=== PATIENT | female | born 1940 | race Caucasian/White ===

== ENCOUNTER 2024-05-05 02:26 | Inpatient (IN) | payer MEDICARE, SELFPAY ==
[2024-05-04 17:23] VITALS: BP 207/89
[2024-05-04 17:49] LABS: % Basophils 0.5 % (0-2); % Immature Granulocytes 0.2 % (0-0.5); % Lymphocytes 10.5 % (20.5-51.1); % Monocytes 3.8 % (1.7-9.3); Absolute Basophils 0.1 10^3/uL (0-0.2); Absolute Monocytes 0.4 10^3/uL (0.1-0.6); Absolute Neutrophils 7.9 10^3/uL (1.4-6.5); Hematocrit 41.3 % (37.0-47.0); Hemoglobin 13.2 g/dL (12.0-16.0); Mean Corpuscular Hgb 28.9 pg (27.0-31.0); Mean Corpuscular Volume 90.4 fL (81.0-99.0); Mean Platelet Volume 9.8 fL (7.4-10.4); Nucleated Red Blood Cells % 0 %; Platelet Count 263 10^3/uL (130-400); Red Blood Cell Count 4.57 10^6/uL (4.20-5.40); White Blood Cell Count 9.3 10^3/uL (4.8-10.8)
[2024-05-04 18:00] LABS: ALT (SGPT) 20 U/L (0-35); AST (SGOT) 32 U/L (14-36); Albumin 4.4 g/dl (3.5-5.0); Alkaline Phosphatase 120 U/L (38-126); Blood Urea Nitrogen 24 mg/dl (7-17); Calcium 9.9 mg/dl (8.4-10.2); Carbon Dioxide 28 mmol/L (22-30); Chloride 102 mmol/L (98-107); Glucose 194 mg/dl (70-99); Lipase 75 U/L (23-300); Potassium 5.2 mmol/L (3.5-5.1); Sodium 137 mmol/L (135-145); Total Bilirubin 0.7 mg/dl (0.2-1.3); eGFR 55.55
[2024-05-04 18:44] VITALS: BP 181/69; BMI 32.1
--- NOTE | 2024-05-04 19:33 | ED.GENMED ---
History of Present Illness
General
Chief Complaint: Abdominal Pain
Time Seen by Provider: 05/04/24 18:41
History of Present Illness
History of Present Illness:
83-year-old female with history of hypertension and hyperlipidemia presents the emergency department for evaluation of upper abdominal pain beginning last night. Symptoms worsen this morning with copious vomiting. She states she has had 1 bowel
movement today but denies any diarrhea. No melanotic stools. Prior abdominal surgery includes open cholecystectomy
Past History
Past History
ED Past Medical History: HTN, Renal failure and Other (Psoriatic arthritis, dementia, morbid obesity)
ED Past Surgical History: Orthopedic (Right hip replacement)
Social History
Tobacco: Non-smoker
Living: with family
Review of Systems
Review of Systems
Allergies reviewed?: Yes
All Other Systems: ROS reviewed and negative except as documented in HPI and ROS
Phy Exam
Physical Exam
Physical Exam:
GEN: Well appearing, NAD, WDWN
Eyes: PERRLA, EOMs intact, no scleral icterus
HENT: NCAT, oral mucosa moist,
Lungs: CTAB, no wheezes, rales, rhonchi, normal chest wall excursion
Cardiac: RRR, no M/R/G, no peripheral edema. Radial pulses 2+ bilat
Abdomen: Distended abdomen, tender to the epigastrium and right upper quadrant
Neuro: AO x 3
MSK: No gross deformity or ecchymosis. No edema. No digital clubbing
Skin: No rashes, petechiae. Normal color, no pallor or jaundice.
Psych: Calm, cooperative, proper hygiene
Course
Orders/Labs/Results
Orders:
Orders
05/04/24 17:29
Electrocardiogram (*1) Urgent
Reason for Study: Abdominal Pain
EKG- Treatment ONCE
05/04/24 17:37
Complete Blood Count/With Diff Urgent
Comprehensive Metabolic Panel Urgent
Lipase Urgent
05/04/24 19:23
CT Abd/Pel (IV only)-DH only Urgent
Comment:
Reason For Exam: epigastric pain
0.9% Sodium Chloride 1000 ml [Nss] 1,000 ml IV BOLUS
Ondansetron Injectable [Zofran] 4 mg IV NOW STA
05/04/24 20:32
Morphine Sulfate 4 mg IV NOW STA
05/04/24 23:02
NG Tube [GI tube insertion- Treatment] ONCE
Abnormal Lab Results
05/04/24
17:37
MCHC 32.0 L g/dL
(33.0-37.0)
RDW 15.0 H %
(11.5-14.5)
Absolute Neuts (auto) 7.9 H 10^3/uL
(1.4-6.5)
Absolute Lymphs (auto) 1.0 L 10^3/uL
(1.2-3.4)
Neutrophils % 85.0 H %
(42.2-75.2)
Lymphocytes % 10.5 L %
(20.5-51.1)
Potassium 5.2 H mmol/L
(3.5-5.1)
BUN 24 H mg/dl
(7-17)
Glucose 194 H mg/dl
(70-99)
05/04/24 17:37
05/04/24 17:37
Vital Signs
Initial and Last Documented VS:
Initial Vital Signs
Temp Pulse Resp BP Pulse Ox
98.1 F 77 20 207/89 94
05/04/24 17:23 05/04/24 17:23 05/04/24 17:23 05/04/24 17:23 05/04/24 17:23
Last Documented Vital Signs
Temp Pulse Resp BP Pulse Ox
98.1 F 89 18 156/53 91
05/04/24 17:23 05/04/24 22:42 05/04/24 20:30 05/04/24 22:42 05/04/24 22:42
MDM/Problems Addressed
MDM/Problems Addressed:
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 Widespread metastatic disease identified on CT scan. NG tube will be placed and the patient will be admitted to the
hospitalist service for further management
General surgery was made aware of case via [facility] message at 2311, however there is no indication for surgical emergency that would necessitate urgent consultation.
*Critical Care Note
Total Time (30-74mins, 75-104mins- exclusive of procedures): Not Applicable
ED Attending Note
-
Portions of this chart may have been created with voice recognition software.� Occasional wrong word or��sound alike� substitutions may have occurred due to the inherent limitations of voice recognition software.
Discharge Plan
Departure
Patient Disposition: Admit
Date of Disposition: 05/04/24
Time of Disposition: 23:11
Presentation/result/management discussed w/ accepting MD/DO: Hospitalist
Discharge Problem:
Small bowel obstruction
Prescriptions:
No Action
atorvastatin 20 mg Tablet
20 mg PO DAILY
olmesartan 20 MG tablet
20 mg PO DAILY
acetaminophen 325 mg Tablet
650 mg PO QID Qty: 0 0RF
metformin 500 mg Tablet Extended Release 24 Hr
500 mg PO DAILY
Referrals:
Sofi Rodriguez PA-C [Family Provider] -
Interventions
Interventions:
*Risk Screen - Suicide Last Done: 05/04/24 17:23
*General Assessment Last Done: 05/04/24 17:23
*Neglect/Abuse Screening Last Done: 05/04/24 17:23
UN-Sovudn-Ndcileaaqc Assessment Last Done: 05/04/24 18:46
Discharge Date and Time
Print Language: AUSTRALIAN
[2024-05-04] MEDS: NSS 1000 IV (20:16)
[2024-05-04] MEDS: ZOFRAN 4 MG IV (20:16)
[2024-05-04 20:30] VITALS: BP 182/67
--- NOTE | 2024-05-04 21:04 | EDRN ---
Spoke with Carter BOLES and informed him that this RN was locked out of MAR and not able to give medication. Infromed by Carter BOLES that it was ordered on the wrong pt. Documented not given and why. Unable to save this due to Dr Metcalf having me
locked out of the screen.
[2024-05-04 22:42] VITALS: BP 156/53
--- NOTE | 2024-05-04 23:24 | PHANOTE ---
med rec ilya(05/04/24)-patient states she takes care of her own medications, but was not able to go through them with me. Mentioned tylenol, but not other drugs. Compiled list from [facility] records. [facility] records most recent are from September 2023,
unreliable, and multiple unknown medications at that time as well. Left unconfirmed due to only having one source.
[2024-05-05] VITALS (8 sets, daily range): BP systolic 125–186; BP diastolic 51–82; PULSE 64; O2SAT 100; BMI 32.0
--- NOTE | 2024-05-05 02:04 | HPS.HSE ---
Family Physician
-
Family Physician: Sofi Rodriguez
Chief Complaint
-
Abd Pain, N/V
History of Present Illness
Patient is an 83y F with PMH significant for DM-II, obesity and sedentary status who presents to ED complaining of abdominal pain and N/V. Patient states that her symptoms started about 2 days ago and have been persistent. She reports diffuse
abdominal pain and nausea with occasional non-bloody emesis. She states that she has been moving her bowels normally and notes that she had a normal BM this AM.
Patient denies any fevers / chills.
She states that she has never had a colonoscopy.
Medical History
Past Medical History
Past Medical History: Reports Other
Additional Past Medical History:
Obesity
DM-II
Psoriatic Arthritis
Hypertension
? Dementia
Past Surgical History: Reports Other
Additional Past Surgical History:
Right KARLOS
Social History
Tobacco: Former Smoker (Quit smoking 40+ years ago.)
Alcohol: None
Drug: None
Living: With Family (Son)
Family History
Family History: Not pertinent
Allergies / Home Medications
Allergies reflects when Allergies were last updated in [facility].
Home Medications with original date entered in [facility]
Allergy/Medication List:
Patient cannot recall any current medications.
If medication reconciliation has not been performed, why?: Medication List N/A
Review of Systems
-
History Source: Patient
A 12 point ROS was completed and negative except as noted: Yes
Constitutional: Denies Fever or Chills
EENT: Denies Sore Throat
Respiratory: Denies Cough or Trouble Breathing
Cardiac: Denies Chest Pain or Palpitations
Abdomen/GI: Reports Abdominal Pain, Nausea and Vomiting; Denies Diarrhea, Constipated, Bloody Stools or Black Stools
: Denies Dysuria or Frequency
Musculoskeletal: Denies Joint Pain or Edema
Neurological: Denies Dizzy or Headache
Psych: Denies Depression or Anxiety
Physical Exam
Vital Signs
Vital Signs
Temp Pulse Resp BP Pulse Ox
98.1 F 89 18 156/53 91
05/04/24 17:23 05/04/24 22:42 05/04/24 20:30 05/04/24 22:42 05/04/24 22:42
Physical Exam
General: Other (83y F in no acute distress.)
HEENT: Moist mucous membranes, PERRLA and Other (Thick neck. NG in place draining dark, bilious liquid.)
Respiratory: Other (Decreased at bases - otherwise clear.)
Cardiac: S1/S2 and Regular Rhythm; No Murmur
GI: Other (Obese, diffusely / mildly tender without rebound / guarding. Pos BS.)
Musculoskeletal: No Clubbing, No Cyanosis and No Edema
Neuro: Awake, Alert and Other (Mildly confused.)
Laboratory Results
-
05/04/24 17:37
05/04/24 17:37
Laboratory Results
Total Bilirubin 0.7 mg/dl (0.2-1.3) 05/04/24 17:37
AST 32 U/L (14-36) 05/04/24 17:37
ALT 20 U/L (0-35) 05/04/24 17:37
Alkaline Phosphatase 120 U/L (38-126) 05/04/24 17:37
Lipase 75 U/L (23-300) 05/04/24 17:37
Impression/Plan
-
A/P: Patient is an 83y F with PMH significant for HTN and DM-II who presents to ED complaining of abdominal pain and N/V.
SBO
- Admit for further evaluation and treatment.
- NG placed for decompression.
- Supportive care, NPO, IVFs, antiemetics.
- Surgery evaluation.
- Follow for clinical improvement.
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
- CT suggest soft tissue lesion at site of transition concerning for malignancy.
- In addition, R base lung mass, hepatic lesions, peritoneal seeding and fluid concerning for metastatic spread.
- Will ask IR to review imaging in the AM for any potential targets for biopsy / definitive diagnosis.
- Oncology eval after tissue diagnosis.
Benign Hypertension
- Hold PO meds acutely.
- IV hydralazine as needed for higher BPs.
DM-II
- Stable. Hold PO meds.
- Follow glucose and cover with SSI as needed.
- Update A1C.
DVT Prophylaxis: SCDs
Code Status: Full
--- NOTE | 2024-05-05 04:52 | PTCARENOTE ---
Received pt from ER,quiet affect,pt tolerated transfer well pts physical assessment preformed,pt NGT intact to right nare,brown drainage small amt.VS stable pt afebrile.O2 98% on 2 lnc.Pt assisted with turning,voided large amt on bedpan.Sleeping
after assessment.
[2024-05-05] MEDS: NSS 1000 IV ×2 (05:14→15:30)
[2024-05-05 05:38] LABS: Glucose - Point of Care 153 mg/dl (70-99)
[2024-05-05] MEDS: NOVOLOG FLEXPEN-LOW RESISTANCE 1 UNITS SC (06:01)
[2024-05-05 07:18] LABS: Hematocrit 38.4 % (37.0-47.0); Hemoglobin 12.4 g/dL (12.0-16.0); Mean Corp Hgb Conc. 32.3 g/dL (33.0-37.0); Mean Corpuscular Hgb 28.9 pg (27.0-31.0); Mean Corpuscular Volume 89.5 fL (81.0-99.0); Mean Platelet Volume 10.1 fL (7.4-10.4); Platelet Count 244 10^3/uL (130-400); Red Blood Cell Count 4.29 10^6/uL (4.20-5.40); Red Cell Dist. Width 15.1 % (11.5-14.5); White Blood Cell Count 10.3 10^3/uL (4.8-10.8)
[2024-05-05 08:00] LABS: Blood Urea Nitrogen 24 mg/dl (7-17); Carbon Dioxide 25 mmol/L (22-30); Chloride 103 mmol/L (98-107); Estimated Creatinine Clearance 39 ml/min; Glucose 146 mg/dl (70-99); Potassium 4.4 mmol/L (3.5-5.1); Sodium 137 mmol/L (135-145); eGFR 55.55
[2024-05-05 08:45] LABS: INR 1.11; PT 14.2 Sec (11.4-14.6)
[2024-05-05] MEDS: NSS (PRESERVATIVE FREE) 10 ML IV (08:59)
[2024-05-05] MEDS: PROTONIX IV 40 MG IV (09:00)
[2024-05-05 10:40] LABS: CEA 24.4 ng/ml
[2024-05-05 11:12] LABS: Glycohemoglobin (HgbA1c) 6.7 % (4.0-5.6)
--- NOTE | 2024-05-05 11:41 | W.PN.HOSP.TC ---
Today's Communication/Plan
-
NG tube.
IV fluids.
iRad for liver biopsy.
Assessment / Plan
Assessment / Plan
Impression:
Patient is an 83y F with PMH significant for HTN and DM-II who presents to ED complaining of abdominal pain and N/V.
SBO with concern for malignant obstruction
Other conditions:
Benign hypertension
Diabetes type 2 NIDDM.
Suspect cognitive dysfunction.
Plan:
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
CT scan suggest soft tissue lesion at site of transition, lymphadenopathy, hepatic and pulmonary metastasis
Interventional radiology consultation for liver biopsy
Tumor markers pending.
Oncology consultation.
NG tube placed in the emergency room.
N.p.o.
IV fluids monitor electrolytes
General surgery consultation
Oncology consultation
Benign Hypertension
- Hold PO meds acutely.
- IV hydralazine as needed for higher BPs.
DM-II
- Stable. Hold PO meds.
- Follow glucose and cover with SSI as needed.
- Update A1C.
DVT Prophylaxis: SCDs
Code Status: Full
Anticipated Discharge: > 48 hours
Subjective/Interval History
-
Date of Service: May 05, 2024
Objective Data
-
Labs:
Laboratory Results
05/05/24 05/05/24
05:03 08:14
WBC 10.3
Hgb 12.4
Hct 38.4
Plt Count 244
PT 14.2
INR 1.11
Sodium 137
Potassium 4.4
Chloride 103
Carbon Dioxide 25
BUN 24 H
Creatinine 1.0
Glucose 146 H
Calcium 9.0
Vital Signs:
Vital Signs
Temp Pulse Resp BP Pulse Ox
98.9 F 74 20 131/57 97
05/05/24 07:33 05/05/24 07:33 05/05/24 07:33 05/05/24 07:33 05/05/24 08:00
I&O
05/04/24 05/05/24 05/06/24
06:59 06:59 06:59
Intake Total 300 / 300
Output Total 300 / 300
Balance 0 / 0
Physical Exam
-
General: Well Developed and No Apparent Distress
HEENT: Normocephalic, Atraumatic and Moist Mucous Membranes
Respiratory: Clear to Auscultation
Cardiac: Regular Rhythm and S1/S2; Negative Murmur, Rub or Gallop
GI: Soft, Nontender, Normal Bowel Sounds, Distended and Other (Hypoactive bowel sounds. NG tube in place with biliary fluid.); Negative Organomegaly
Rectal: Deferred by Provider
Musculoskeletal: No Clubbing, No Cyanosis and No Edema
Skin: Negative Rash
Neuro: Awake, Alert, Oriented and Nonfocal/Grossly Intact
[2024-05-05] MEDS: CHLORASEPTIC/SORE THROAT SPRAY 2 SPRAY PO ×2 (11:47→17:34)
--- NOTE | 2024-05-05 11:54 | CON.ONC ---
Impression
Impression
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
Diabetes
Obesity
Hard of hearing, possible dementia
Plan
Plan
Agree with plans for biopsy of the liver. Check CEA. Management of bowel obstruction as per surgical service. We will continue to follow.
Patient History
History of Present Illness
Consult from Dr. Kumar regarding probable colon cancer
This 83-year-old woman was admitted with vomiting. Evaluation here shows a bowel obstruction that seems to be located at the junction of the ileum and cecum. There are also apparent liver and lung metastases. She is being managed presently with
an NG tube. Liver biopsy is planned. She is unable to give me much of a meaningful history in part due to hearing difficulties. She was having some abdominal pain, but says she is not having any at present. She is unaware of any weight loss.
Past-Medical/Surgical History
Longstanding diabetes
Psoriatic arthritis
Patient Medication
�Medication �Instructions �Recorded �Confirmed �Last Taken �Type
atorvastatin 20 mg tablet 20 mg PO DAILY High cholesterol 10/24/22 05/05/24 Unknown History
olmesartan 20 mg tablet 20 mg PO DAILY Blood pressure 10/24/22 05/05/24 Unknown History
acetaminophen 325 mg tablet 650 mg (2 x 325 mg) PO QID #0 tabs 10/25/22 05/05/24 Unknown Rx
metformin 500 mg tablet,extended 500 mg PO DAILY 05/04/24 05/05/24 Unknown History
release 24 hr
Active Medications
Generic Name Dose Route Start Last Admin
Trade Name Freq PRN Reason Stop Dose Admin
Dextrose 12.5 grams 05/05/24 03:48
Dextrose 50% (0.5 Grams/Ml) 50 Ml Syringe IV 06/02/24 03:47
[id number] PRN
hypoglycemia
Protocol
Glucagon 1 mg 05/05/24 03:48
Glucagon 1 Mg Vial IM 06/02/24 03:47
PRN PRN
hypoglycemia
Protocol
Hydralazine HCl 5 mg 05/05/24 03:48
Hydralazine 20 Mg/Ml Vial IV 06/02/24 03:47
Q6HPRN PRN
SBP > 180
Hydromorphone HCl 0.5 mg 05/05/24 03:48
Hydromorphone 0.5 Mg/0.5 Ml Syringe IV 05/19/24 03:47
Q4HPRN PRN
Severe Pain
Sodium Chloride 1,000 mls @ 100 mls/hr 05/05/24 03:48 05/05/24 05:14
Nss IV 1,000 mls
.Q10H BLANCA Administration
Insulin Aspart 0 units 05/05/24 06:00 05/05/24 06:01
Insulin Aspart Low Resistance 300 Units/3 Ml Pen.Injctr SC 06/02/24 05:59 1 units
Q6 BLANCA Administration
Protocol
Ondansetron HCl 4 mg 05/05/24 03:48
Ondansetron 4 Mg/2 Ml Vial IV 06/02/24 03:47
Q6HPRN PRN
nausea and vomiting
Pantoprazole Sodium 40 mg 05/05/24 08:00 05/05/24 09:00
Pantoprazole Sodium 40 Mg/10 Ml Vial IV 06/02/24 07:59 40 mg
DAILY BLANCA Administration
Phenol 0 spray 05/05/24 11:13
Chloraseptic (1.4% Phenol) Throat [place] PO 06/02/24 11:12
Q2HPRN PRN
SORE THROAT
Sodium Chloride 0 flush 05/05/24 05:00
Sodium Chloride 0.9% (Flush) Syringe IV 06/02/24 04:59
PER PROTOCOL BLANCA
Sodium Chloride 10 ml 05/05/24 08:00 05/05/24 08:59
Sodium Chloride 0.9% (Preservative Free) 10 Ml Vial IV 06/02/24 07:59 10 ml
DAILY BLANCA Administration
Review of Systems
-
All Other Systems: Reviewed and Negative
Physical Exam
-
Physical examination shows the patient to be in no acute distress. She is hard of hearing, her precise mental status such as presence of dementia is difficult to evaluate, given this.
HEENT exam is unremarkable.
There are no palpable nodes.
Chest is clear.
The heart is regular with no murmur or gallop.
The abdomen is soft and nontender with no organomegaly or masses, but quite distended; bowel sounds are hypoactive.
Extremities are unremarkable.
Neurologic is grossly intact.
Labs
Lab Results
WBC 10.3 10^3/uL (4.8-10.8) 05/05/24 05:03
RBC 4.29 10^6/uL (4.20-5.40) 05/05/24 05:03
Hgb 12.4 g/dL (12.0-16.0) 05/05/24 05:03
Hct 38.4 % (37.0-47.0) 05/05/24 05:03
MCV 89.5 fL (81.0-99.0) 05/05/24 05:03
MCH 28.9 pg (27.0-31.0) 05/05/24 05:03
MCHC 32.3 g/dL (33.0-37.0) L 05/05/24 05:03
RDW 15.1 % (11.5-14.5) H 05/05/24 05:03
Plt Count 244 10^3/uL (130-400) 05/05/24 05:03
MPV 10.1 fL (7.4-10.4) 05/05/24 05:03
Abs Immat Gran (auto) 0.0 10^3/uL (0-0.05) 05/04/24 17:37
Absolute Neuts (auto) 7.9 10^3/uL (1.4-6.5) H 05/04/24 17:37
Absolute Lymphs (auto) 1.0 10^3/uL (1.2-3.4) L 05/04/24 17:37
Absolute Monos (auto) 0.4 10^3/uL (0.1-0.6) 05/04/24 17:37
Absolute Eos (auto) 0.0 10^3/uL (0-0.7) 05/04/24 17:37
Absolute Basos (auto) 0.1 10^3/uL (0-0.2) 05/04/24 17:37
Immature Gran % 0.2 % (0-0.5) 05/04/24 17:37
Neutrophils % 85.0 % (42.2-75.2) H 05/04/24 17:37
Lymphocytes % 10.5 % (20.5-51.1) L 05/04/24 17:37
Monocytes % 3.8 % (1.7-9.3) 05/04/24 17:37
Eosinophils % 0.0 % (0-6) 05/04/24 17:37
Basophils % 0.5 % (0-2) 05/04/24 17:37
Creatinine 1.0 mg/dL (0.6-1.0) 05/05/24 05:03
Vital Signs
Vital Signs
Temp Pulse Resp BP Pulse Ox
98.9 F 74 20 131/57 97
05/05/24 07:33 05/05/24 07:33 05/05/24 07:33 05/05/24 07:33 05/05/24 08:00
[2024-05-05 12:03] LABS: Glucose - Point of Care 135 mg/dl (70-99)
[2024-05-05] MEDS: NOVOLOG FLEXPEN-LOW RESISTANCE SC ×2 (12:17→18:06)
--- NOTE | 2024-05-05 12:40 | CM ---
Addendum entered by Kath Mcmahon 05/05/24 13:54:
CM met with Rachael and her son Cuate at bedside. Rachael lives with her 2 sons and grandson in a ranch style home with 3 entry steps. Rachael is (I) amb with a cane for ambulation and (I) ADls. She also has a RW, grab bars in the shower, and a shower
chair (not using currently). Her grandson is usually at home when she is alone, however he sleeps during the day. She has a life alert necklace in the event she falls and needs help. Rachael is able to prepare light meals for herself during the
day.
Plan: Discharge to home with family; will follow for increased needs, as pt is going for a liver biopsy with concern for metastatic cecal carcinoma to liver and lungs.
CM will continue to follow to assist with discharge planning needs.
Original Note:
Chart reviewed and call placed to Rachael's son, Ace. Ace was unable to speak due to being at work, however he advised that his brother would be coming to the hospital shortly, and he would be able to provide information regarding his mother.
CM to follow up with son, Cuate, when he is visiting with his mother.
--- NOTE | 2024-05-05 14:18 | CON.GS ---
Medical History
-
Chief Complaint: Abdominal pain, nausea, emesis
History of Present Illness:
Patient is an 83 yo F with PMH of obesity, HTN, HLD, NIDDM, RA, s/p R KARLOS, and s/p unknown abdominal procedure involving a lower midline incision. Ms. Correa presents with abdominal pain, nausea, vomiting. History is severely limited by
patient's ability to recall events. Discussion with her son Cuate as well as chart review. Symptoms began yesterday with abdominal pain, nausea, and vomiting. Last bowel movement reported to be yesterday a.m. and nonbloody. Prior to the past 24
to 48 hours, no noted issues as a relates to her abdomen. No fevers, chills, night sweats, or weight loss. No documented colonoscopy, though her son seems to indicate that she may have had one previously. No strong family history of colon cancer.
Of note, patient lives alone and is fairly sedentary.
Past Medical History
Past Medical History: HTN, Hypercholesterolemia and Other (Obesity)
Past Surgical History: Orthopedic ( R KARLOS) and Other (Unknown lower midline abdominal)
Social History
Tobacco: Former Smoker
Alcohol: None
Drug: None
Family History
Family History: Reviewed & Noncontributory
Allergies / Home Medications
Allergy/AdvReac Type Severity Reaction Status Date / Time
Penicillins Allergy Unknown Verified 05/04/24 17:28
�Medication �Instructions �Recorded �Confirmed �Type
atorvastatin 20 mg tablet 20 mg PO DAILY High cholesterol 10/24/22 05/05/24 History
olmesartan 20 mg tablet 20 mg PO DAILY Blood pressure 10/24/22 05/05/24 History
acetaminophen 325 mg tablet 650 mg (2 x 325 mg) PO QID #0 tabs 10/25/22 05/05/24 Rx
metformin 500 mg tablet,extended 500 mg PO DAILY 05/04/24 05/05/24 History
release 24 hr
Review of Systems
-
A 10 point review of systems was completed, and was negative except as per HPI.
Physical Exam
Vital Signs
Temp Pulse Resp BP Pulse Ox
98.9 F 74 20 131/57 97
05/05/24 07:33 05/05/24 07:33 05/05/24 07:33 05/05/24 07:33 05/05/24 08:00
05/04/24 05/05/24 05/06/24
06:59 06:59 06:59
Actual Weight 76.827 kg
Body Mass Index (BMI) 32.0
Lab Results
05/05/24 05:03
05/05/24 05:03
WBC 10.3 10^3/uL (4.8-10.8) 05/05/24 05:03
Hgb 12.4 g/dL (12.0-16.0) 05/05/24 05:03
Hct 38.4 % (37.0-47.0) 05/05/24 05:03
Plt Count 244 10^3/uL (130-400) 05/05/24 05:03
Abs Immat Gran (auto) 0.0 10^3/uL (0-0.05) 05/04/24 17:37
Neutrophils % 85.0 % (42.2-75.2) H 05/04/24 17:37
Physical Exam
General: Well Developed, Well Nourished and No Apparent Distress
HEENT: Normocephalic and Anicteric
Respiratory: Non Labored Respirations
Cardiac: Regular Rhythm
GI: Soft, Tender, Distended, Obese and Other (Non-peritoneal)
Musculoskeletal: No Edema
Skin: Warm and Dry
Neuro: Nonfocal/Grossly Intact
Data Reviewed
-
CT Scan: Image Personally Visualized and interpreted and Report Reviewed by me
Labs: Labs Reviewed by me
Assessment / Plan
-
Patient is a 83 yo F p/w SBO likely secondary to malignancy.
Area of obstruction appears to be at the level of the cecum. Appears to have metastatic disease based on lymphadenopathy as well as several large lesions in the liver. No signs of bowel ischemia or perforation. Clinically patient does not sound
completely obstructed as she is able to pass some stool. Will likely need operative resection from a symptomatic standpoint. Recommend workup with biopsy of the liver lesion as well as tumor markers including CEA and CA 19-9. This will help to
confirm the diagnosis as well as provide a more educated discussion regarding prognosis and treatment options. In the interim, recommend medical management for a bowel obstruction including NPO, IVF, and NGT decompression. Oncology consult noted.
All questions answered. Of note, discussed briefly goals of care with the son. Mentioned that he should discuss this with his mother to help guide questions and decision making in the future regarding surgery and potential chemotherapy.
-- NPO, IVF, NGT decompression
-- IR biopsy of hepatic mass
-- Oncology consult noted, CEA and Ca19-9 pending
-- Will continue to follow
[2024-05-05 18:01] LABS: Glucose - Point of Care 101 mg/dl (70-99)
[2024-05-06] VITALS (8 sets, daily range): BP systolic 59–136; BP diastolic 38–61
[2024-05-06 00:12] LABS: Glucose - Point of Care 99 mg/dl (70-99)
[2024-05-06] MEDS: NOVOLOG FLEXPEN-LOW RESISTANCE SC ×5 (00:16→23:42)
[2024-05-06] MEDS: NSS 1000 IV ×3 (01:09→23:52)
[2024-05-06 06:04] LABS: Glucose - Point of Care 105 mg/dl (70-99)
[2024-05-06] MEDS: PROTONIX IV 40 MG IV (08:13)
[2024-05-06] MEDS: NSS (PRESERVATIVE FREE) 10 ML IV (08:13)
[2024-05-06] MEDS: DILAUDID 0.5 MG IV (08:25)
[2024-05-06 08:45] LABS: Blood Urea Nitrogen 26 mg/dl (7-17); Calcium 8.5 mg/dl (8.4-10.2); Carbon Dioxide 29 mmol/L (22-30); Chloride 107 mmol/L (98-107); Estimated Creatinine Clearance 39 ml/min; Glucose 104 mg/dl (70-99); Potassium 4.1 mmol/L (3.5-5.1); Sodium 139 mmol/L (135-145); eGFR 55.55
[2024-05-06 09:09] LABS: Platelet Count 191 10^3/uL (130-400)
[2024-05-06 09:10] LABS: % Basophils 0.4 % (0-2); % Eosinophils 0.7 % (0-6); % Immature Granulocytes 0.5 % (0-0.5); % Lymphocytes 14.6 % (20.5-51.1); % Monocytes 11.6 % (1.7-9.3); % Neutrophils 72.2 % (42.2-75.2); Absolute Eosinophils 0.1 10^3/uL (0-0.7); Absolute Lymphocytes 1.2 10^3/uL (1.2-3.4); Absolute Monocytes 0.9 10^3/uL (0.1-0.6); Absolute Neutrophils 5.9 10^3/uL (1.4-6.5); Hematocrit 34.6 % (37.0-47.0); Hemoglobin 10.8 g/dL (12.0-16.0); Mean Corp Hgb Conc. 31.2 g/dL (33.0-37.0); Mean Corpuscular Hgb 28.1 pg (27.0-31.0); Mean Corpuscular Volume 90.1 fL (81.0-99.0); Mean Platelet Volume 9.7 fL (7.4-10.4); Nucleated Red Blood Cells % 0 %; Red Blood Cell Count 3.84 10^6/uL (4.20-5.40); Red Cell Dist. Width 15.5 % (11.5-14.5); White Blood Cell Count 8.1 10^3/uL (4.8-10.8)
--- NOTE | 2024-05-06 10:39 | W.PN.GS2 ---
Addendum entered and electronically signed by Deon Hubbard MD 05/06/24 14:06:
Phi Cuello contacted by phone, clinical update provided, all questions answered.
Original Note:
Today's Communication / Plan
-
IR biopsy
NPO/NGT
Assessment / Plan
-
83F with SBO at distal ileum most likely 2/2 malignancy with imaging findings suspicious for hepatic and pulmonary mets
AFVSS, abd exam with mild ttp to RLQ, NGT with scant cardenas output
No leukocytosis, neutrophilia has resolved
CT A/P with findings as above, no signs of bowel threat or compromise
Plan:
NPO/IVF/NGT
Monitor for ROBF
IR sampling of hepatic lesion
CEA is elevated >5x over normal
With improving exam and minimal NGT outputs, would cont med mgmt for now and allow for IR biopsy.
She may ultimately need a palliative procedure to deal with the obstruction if that is consistent with her GOC
Subjective Data
-
Date of Service: May 06, 2024
AFVSS, pain improved, denies n/v with NGT to suction, denies flatus/BM
Objective Data
-
Intake and Output
05/05/24 05/06/24 05/07/24
06:59 06:59 06:59
Intake Total 300 / 300 1380 / 1380
Output Total 300 / 300 625 / 625
Balance 0 / 0 755 / 755
Intake:
IV fluids (Total) 300 / 300 1200 / 1200
Amount instilled into GI Tube ( 180 / 180
Total)
[place] Sump 180 / 180
Output:
Gastrointestinal tube output ( 300 / 300 425 / 425
Total)
[place] Sump 300 / 300 425 / 425
Urine, Voided 200 / 200
Other:
Number of approximated LARGE 1 1
amounts of urine
How many times incontinent 3
MODERATE amount urine
How many times incontinent 1
SATURATED amount urine
Vital Signs
Temp Pulse Resp BP Pulse Ox
98.8 F 79 20 100/61 98
05/06/24 07:35 05/06/24 07:35 05/06/24 07:35 05/06/24 07:35 05/06/24 07:35
Lab Results
05/06/24 08:01
05/06/24 08:01
Calcium 8.5 mg/dl (8.4-10.2) 05/06/24 08:01
Total Bilirubin 0.7 mg/dl (0.2-1.3) 05/04/24 17:37
AST 32 U/L (14-36) 05/04/24 17:37
ALT 20 U/L (0-35) 05/04/24 17:37
Alkaline Phosphatase 120 U/L (38-126) 05/04/24 17:37
Total Protein 7.0 g/dl (6.3-8.2) 05/04/24 17:37
Albumin 4.4 g/dl (3.5-5.0) 05/04/24 17:37
Physical Exam
-
Gen: NAD
Abd: soft, obese, mild ttp RLQ, NGT scant cardenas clear fluid
[2024-05-06 11:54] LABS: Glucose - Point of Care 115 mg/dl (70-99)
[2024-05-06] MEDS: OFIRMEV 100 IV (13:51)
--- NOTE | 2024-05-06 16:35 | W.PN.HOSP.TC ---
Today's Communication/Plan
-
NPO.
NG tube
Aspiration precautions
IV fluids for maintenance
Follow electrolytes
For liver mass biopsy by interventional radiology
Plan of care discussed with RN and patient's son at the bedside.
Assessment / Plan
Assessment / Plan
Impression:
Patient is an 83y F with PMH significant for HTN and DM-II who presents to ED complaining of abdominal pain and N/V.
SBO with concern for malignant obstruction
Other conditions:
Benign hypertension
Diabetes type 2 NIDDM.
Suspect cognitive dysfunction.
Plan:
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
CT scan suggest soft tissue lesion at site of transition, lymphadenopathy, hepatic and pulmonary metastasis
Interventional radiology consultation for liver biopsy
Tumor markers pending.
Oncology consultation.
NG tube placed in the emergency room.
N.p.o.
IV fluids monitor electrolytes
General surgery consultation
Oncology consultation
Benign Hypertension
- Hold PO meds acutely.
- IV hydralazine as needed for higher BPs.
DM-II
- Stable. Hold PO meds.
- Follow glucose and cover with SSI as needed.
- Update A1C 6.7
DVT Prophylaxis: SCDs
Code Status: Full
Anticipated Discharge: > 48 hours
Subjective/Interval History
-
Date of Service: May 06, 2024
Objective Data
-
Labs:
Laboratory Results
05/06/24
08:01
WBC 8.1
Hgb 10.8 L
Hct 34.6 L
Plt Count 191 D
Sodium 139
Potassium 4.1
Chloride 107
Carbon Dioxide 29
BUN 26 H
Creatinine 1.0
Glucose 104 H
Calcium 8.5
Vital Signs:
Vital Signs
Temp Pulse Resp BP Pulse Ox
97.8 F 60 18 118/38 97
05/06/24 15:21 05/06/24 15:21 05/06/24 15:21 05/06/24 15:21 05/06/24 15:21
I&O
05/05/24 05/06/24 05/07/24
06:59 06:59 06:59
Intake Total 300 / 300 1380 / 1380
Output Total 300 / 300 625 / 625 150 / 150
Balance 0 / 0 755 / 755 -150 / -150
Physical Exam
-
General: Well Developed and No Apparent Distress
HEENT: Normocephalic, Atraumatic and Moist Mucous Membranes
Respiratory: Clear to Auscultation
Cardiac: Regular Rhythm and S1/S2; Negative Murmur, Rub or Gallop
GI: Soft, Nontender, Normal Bowel Sounds, Distended and Other (Hypoactive bowel sounds. NG tube in place with biliary fluid.); Negative Organomegaly
Rectal: Deferred by Provider
Musculoskeletal: No Clubbing, No Cyanosis and No Edema
Skin: Negative Rash
Neuro: Awake, Alert, Oriented and Nonfocal/Grossly Intact
--- NOTE | 2024-05-06 17:00 | PTCARENOTE ---
Received patient from [facility] s/p liver biopsy. Bandaid noted to TANESHA DAWN. Ordered bedrest for 4 hours. Patient made comfortable. Call nuñez in reach.
--- NOTE | 2024-05-06 17:02 | W.PN.UPDATE ---
Update Note
Progress Note Update
- US guided biopsy of R hepatic mass performed
- 5 18g core samples obtained
- Pt tolerated well. 4 hrs bedrest.
[2024-05-06 17:35] LABS: CA 19-9 <2 U/mL (<=35)
[2024-05-06 17:52] LABS: Glucose - Point of Care 95 mg/dl (70-99)
[2024-05-06 23:41] LABS: Glucose - Point of Care 77 mg/dl (70-99)
[2024-05-07 05:51] LABS: Blood Urea Nitrogen 20 mg/dl (7-17); Calcium 8.5 mg/dl (8.4-10.2); Carbon Dioxide 26 mmol/L (22-30); Chloride 108 mmol/L (98-107); Estimated Creatinine Clearance 44 ml/min; Glucose 72 mg/dl (70-99); Potassium 3.8 mmol/L (3.5-5.1); Sodium 138 mmol/L (135-145); eGFR > 60.00
[2024-05-07 06:09] LABS: Glucose - Point of Care 71 mg/dl (70-99)
[2024-05-07] MEDS: NOVOLOG FLEXPEN-LOW RESISTANCE SC ×4 (06:13→23:57)
[2024-05-07 06:58] LABS: Hemoglobin 10.7 g/dL (12.0-16.0); Mean Corp Hgb Conc. 32.4 g/dL (33.0-37.0); Mean Corpuscular Hgb 28.7 pg (27.0-31.0); Mean Corpuscular Volume 88.5 fL (81.0-99.0); Red Blood Cell Count 3.73 10^6/uL (4.20-5.40); White Blood Cell Count 7.9 10^3/uL (4.8-10.8)
[2024-05-07 07:20] VITALS: BP 153/59
[2024-05-07 07:26] LABS: % Basophils 0.4 % (0-2); % Eosinophils 0.5 % (0-6); % Immature Granulocytes 0.6 % (0-0.5); % Lymphocytes 11.6 % (20.5-51.1); % Monocytes 10.7 % (1.7-9.3); % Neutrophils 76.2 % (42.2-75.2); Absolute Immature Granulocytes 0.1 10^3/uL (0-0.05); Absolute Lymphocytes 0.9 10^3/uL (1.2-3.4); Absolute Monocytes 0.9 10^3/uL (0.1-0.6); Nucleated Red Blood Cells % 0 %
[2024-05-07] MEDS: NSS (PRESERVATIVE FREE) 10 ML IV (09:01)
[2024-05-07] MEDS: PROTONIX IV 40 MG IV (09:06)
[2024-05-07] MEDS: CHLORASEPTIC/SORE THROAT SPRAY 1 SPRAY PO (09:13)
--- NOTE | 2024-05-07 10:17 | W.PN.ONC ---
Today's Communication / Plan
-
Reevaluate abdomen with CT scan
CEA 24.4
Pathology pending
Impression
Impression
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
Postbiopsy right upper quadrant pain
Diabetes
Obesity
Hard of hearing, possible dementia
Subjective/Objective
Subjective/Objective
Patient complaining of right upper quadrant pain in the region of her previous biopsy
Vital Signs:
Vital Signs
Temp Pulse Resp BP Pulse Ox
98.7 F 77 20 153/59 95
05/07/24 07:20 05/07/24 07:20 05/07/24 07:20 05/07/24 07:20 05/07/24 07:20
No scleral icterus
Heart regular
Lungs clear
Distended abdomen with tenderness in the right upper quadrant
Extremities without asymmetry
Lab Results:
Laboratory Data
WBC 7.9 10^3/uL (4.8-10.8) 05/07/24 04:30
Hgb 10.7 g/dL (12.0-16.0) L 05/07/24 04:30
Plt Count 10^3/uL (130-400) 05/07/24 04:30
PT 14.2 Sec (11.4-14.6) 05/05/24 08:14
INR 1.11 05/05/24 08:14
eGFR > 60.00 05/07/24 04:30
--- NOTE | 2024-05-07 10:23 | W.PN.GS2 ---
Addendum entered and electronically signed by Jeff Aggarwal MD 05/07/24 16:00:
Patient seen in follow-up evaluation this afternoon with nurse practitioner. Agree with documented progress note with additions noted here.
Patient's son at bedside for our discussions.
Reviewed with Dr. Bella via [place] text as well, oncology.
Patient offers no complaints other than presence of NG tube.
Abdominal pain adequately controlled and not worse.
AFVSS
ABD: Soft, obese, tenderness to palpation right side without rebound or guarding
NG tube in place with light bilious output but not much volume in canister
Assessment/plan: 83-year-old female with distal small bowel obstruction from presumed malignancy with probable hepatic and pulmonary mets
IR biopsy yesterday; path pending
Lengthy discussions with patient's son at bedside who she lives with and he is the power of prosecuting attorney for her decision making.
Given the degree of obstructive symptoms from ileocecal mass I offered palliative resection with the understanding that this is not curative for stage IV disease and overall may not improve her length of survival/life but would have the goal of
significantly improving quality of life and alleviating her bowel obstruction.
After discussions with him patient's son would like to proceed with surgery
Laparoscopic assisted right hemicolectomy was reviewed in detail including the operative technique utilizing a written diagram/drawing. We discussed alternative treatment options, benefits of surgery and risks such as but not limited to bleeding
requiring transfusion (blood transfusion consent obtained), infectious related complications, wound related complications, iatrogenic injury to surrounding viscera, and anastomotic related complications. We further discussed the increased risk for
postoperative medical complications given patient's advanced age and baseline medical status. Also discussed risk for postoperative delirium and worsening mental status. We discussed possible postoperative recovery and hospitalization including
need for [facility] facility or care. Any of the patient's son's concerns or questions were fully addressed and written informed consent was obtained.
Pending OR schedule availability patient has been added onto the OR for tomorrow 05/08/2024
[facility] on-call to the OR
Type and screen in a.m.
Repeat labs in a.m.
Maintain NG tube decompression
Original Note:
Today's Communication / Plan
-
NPO/NGT/IVF
Assessment / Plan
-
83F with SBO at distal ileum most likely 2/2 malignancy with imaging findings suspicious for hepatic and pulmonary mets
AFVSS
Right sided abd pain/tenderness persists. No flatus/BM as of yet
No leukocytosis, neutrophilia has resolved
CT A/P with findings as above, no signs of bowel threat or compromise
S/P IR bx of right hepatic mass, path pending
Plan:
NPO/IVF/NGT
Monitor for ROBF
IR sampling of hepatic lesion
CEA is elevated >5x over normal
With improving exam and minimal NGT outputs, would cont med mgmt for now and allow for IR biopsy.
She may ultimately need a palliative procedure to deal with the obstruction if that is consistent with her GOC
Subjective Data
-
Date of Service: May 07, 2024
Patient seen and examined at bedside. Denies n/v. Notes her throat is sore. Denies passage of flatus or stools. Complains of pain to the right lateral abdomen
Objective Data
-
Intake and Output
05/06/24 05/07/24 05/08/24
06:59 06:59 06:59
Intake Total 1380 / 1380 2760 / 2760
Output Total 625 / 625 525 / 525
Balance 755 / 755 2235 / 2235
Intake:
IV fluids (Total) 1200 / 1200 2400 / 2400
IV piggybacks 150 / 150
Amount instilled into GI Tube ( 180 / 180 210 / 210
Total)
Willacy Sump 180 / 180 210 / 210
Output:
Gastrointestinal tube output ( 425 / 425 375 / 375
Total)
Willacy Sump 425 / 425 375 / 375
Urine, Voided 200 / 200 150 / 150
Other:
Number of approximated MODERATE 3
amounts of urine
Number of approximated LARGE 1
amounts of urine
How many times incontinent 3
MODERATE amount urine
Vital Signs
Temp Pulse Resp BP Pulse Ox
98.7 F 77 20 153/59 95
05/07/24 07:20 05/07/24 07:20 05/07/24 07:20 05/07/24 07:20 05/07/24 07:20
Lab Results
05/07/24 04:30
05/07/24 04:30
Calcium 8.5 mg/dl (8.4-10.2) 05/07/24 04:30
Total Bilirubin 0.7 mg/dl (0.2-1.3) 05/04/24 17:37
AST 32 U/L (14-36) 05/04/24 17:37
ALT 20 U/L (0-35) 05/04/24 17:37
Alkaline Phosphatase 120 U/L (38-126) 05/04/24 17:37
Total Protein 7.0 g/dl (6.3-8.2) 05/04/24 17:37
Albumin 4.4 g/dl (3.5-5.0) 05/04/24 17:37
Physical Exam
-
Gen: NAD
Abd: soft, obese, mild ttp right lateral abdomen, NGT with gastric outputs
[2024-05-07] MEDS: NSS 1000 IV (10:27)
[2024-05-07] MEDS: OFIRMEV 100 IV (10:28)
[2024-05-07 11:00] VITALS: BP 158/53
[2024-05-07] MEDS: DILAUDID 0.5 MG IV ×2 (11:16→17:26)
[2024-05-07 11:40] LABS: Glucose - Point of Care 71 mg/dl (70-99)
[2024-05-07 13:00] VITALS: BP 137/54
[2024-05-07] MEDS: D5/0.45%NSS with KCL 20 MEQ 1000 IV ×2 (13:59→23:53)
--- NOTE | 2024-05-07 14:12 | PTCARENOTE ---
pt complaining of RUQ pain this AM post liver biopsy. vital signs noted in chart. Dr. Shayne garcia made aware. Ofirmev given with very little relief. [facility] nurse notified of above. Instructed to text Dr. Fontaine. Dr. Fontaine texted with above
information. US abdomen ordered. Dilaudid given as ordered with good relief. Plan of care of ongoing.
[2024-05-07 14:36] VITALS: BP 137/54
[2024-05-07 15:37] VITALS: BP 146/45
--- NOTE | 2024-05-07 16:08 | W.PN.UPDATE ---
Update Note
Progress Note Update
- Pt reported significant RUQ pain earlier today. Biopsy of R hepatic lobe mass performed yesterday without complication
- Stat abdominal ultrasound performed which showed minimal perihepatic fluid, which may represent a small amount of post biopsy hemorrhage
- VSS. H/H stable.
- Pt sitting in chair with no obvious distress. Positive tenderness to palpation at biopsy site, which is to be expected. Soft, no evidence for hematoma.
- Path report still pending.
- No intervention required. Rec tylenol as needed for pain. Will follow along.
--- NOTE | 2024-05-07 17:35 | W.PN.HOSP.TC ---
Today's Communication/Plan
-
NG tube
N.p.o.
IV fluids changing to glucose with potassium.
Follow biopsy report.
Assessment / Plan
Assessment / Plan
Impression:
Patient is an 83y F with PMH significant for HTN and DM-II who presents to ED complaining of abdominal pain and N/V.
SBO with concern for malignant obstruction
Other conditions:
Benign hypertension
Diabetes type 2 NIDDM.
Suspect cognitive dysfunction.
Plan:
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
CT scan suggest soft tissue lesion at site of transition, lymphadenopathy, hepatic and pulmonary metastasis
Interventional radiology consultation for liver biopsy
CEA 24
Status post liver mass biopsy on 05/06
NG tube placed in the emergency room.
N.p.o.
IV fluids monitor electrolytes
General surgery consultation
Oncology consultation
Benign Hypertension
- Hold PO meds acutely.
- IV hydralazine as needed for higher BPs.
DM-II
- Stable. Hold PO meds.
- Follow glucose and cover with SSI as needed.
- Update A1C 6.7
DVT Prophylaxis: SCDs
Code Status: Full
Anticipated Discharge: > 48 hours
Subjective/Interval History
-
Date of Service: May 07, 2024
Objective Data
-
Labs:
Laboratory Results
05/07/24
04:30
WBC 7.9
Hgb 10.7 L
Hct 33.0 L
Plt Count
Sodium 138
Potassium 3.8
Chloride 108 H
Carbon Dioxide 26
BUN 20 H
Creatinine 0.9
Glucose 72
Calcium 8.5
Vital Signs:
Vital Signs
Temp Pulse Resp BP Pulse Ox
98.4 F 56 18 146/45 97
05/07/24 15:37 05/07/24 15:37 05/07/24 15:37 05/07/24 15:37 05/07/24 15:48
I&O
05/06/24 05/07/24 05/08/24
06:59 06:59 06:59
Intake Total 1380 / 1380 2760 / 2760
Output Total 625 / 625 525 / 525
Balance 755 / 755 2235 / 2235
Physical Exam
-
General: Well Developed and No Apparent Distress
HEENT: Normocephalic, Atraumatic and Moist Mucous Membranes
Respiratory: Clear to Auscultation
Cardiac: Regular Rhythm and S1/S2; Negative Murmur, Rub or Gallop
GI: Soft, Nontender, Normal Bowel Sounds, Distended and Other (Hypoactive bowel sounds. NG tube in place with biliary fluid.); Negative Organomegaly
Rectal: Deferred by Provider
Musculoskeletal: No Clubbing, No Cyanosis and No Edema
Skin: Negative Rash
Neuro: Awake, Alert, Oriented and Nonfocal/Grossly Intact
[2024-05-07 17:58] LABS: Glucose - Point of Care 92 mg/dl (70-99)
[2024-05-07 23:37] VITALS: BP 171/70
[2024-05-07 23:53] LABS: Glucose - Point of Care 118 mg/dl (70-99)
[2024-05-08] VITALS (22 sets, daily range): BP systolic 134–205; BP diastolic 39–119; BMI 33.3; BMI 33.8
[2024-05-08 05:34] LABS: Glucose - Point of Care 140 mg/dl (70-99)
[2024-05-08] MEDS: NOVOLOG FLEXPEN-LOW RESISTANCE SC ×3 (05:44→19:40)
[2024-05-08 08:10] LABS: Hematocrit 35.1 % (37.0-47.0); Hemoglobin 11.1 g/dL (12.0-16.0); Mean Corp Hgb Conc. 31.6 g/dL (33.0-37.0); Mean Corpuscular Volume 91.6 fL (81.0-99.0); Mean Platelet Volume 9.8 fL (7.4-10.4); Platelet Count 184 10^3/uL (130-400); Red Blood Cell Count 3.83 10^6/uL (4.20-5.40); Red Cell Dist. Width 14.7 % (11.5-14.5); White Blood Cell Count 8.5 10^3/uL (4.8-10.8)
[2024-05-08 08:28] LABS: Blood Urea Nitrogen 16 mg/dl (7-17); Calcium 8.2 mg/dl (8.4-10.2); Carbon Dioxide 26 mmol/L (22-30); Chloride 105 mmol/L (98-107); Estimated Creatinine Clearance 50 ml/min; Glucose 158 mg/dl (70-99); Potassium 3.9 mmol/L (3.5-5.1); Sodium 133 mmol/L (135-145); eGFR > 60.00
[2024-05-08 09:05] LABS: % Basophils 0.5 % (0-2); % Eosinophils 0.7 % (0-6); % Immature Granulocytes 0.6 % (0-0.5); % Lymphocytes 10.3 % (20.5-51.1); % Monocytes 9.7 % (1.7-9.3); % Neutrophils 78.2 % (42.2-75.2); Absolute Eosinophils 0.1 10^3/uL (0-0.7); Absolute Immature Granulocytes 0.1 10^3/uL (0-0.05); Absolute Lymphocytes 0.9 10^3/uL (1.2-3.4); Absolute Monocytes 0.8 10^3/uL (0.1-0.6); Absolute Neutrophils 6.7 10^3/uL (1.4-6.5); Nucleated Red Blood Cells % 0 %
[2024-05-08] MEDS: PROTONIX IV 40 MG IV (09:16)
[2024-05-08] MEDS: NSS (PRESERVATIVE FREE) 10 ML IV (09:16)
[2024-05-08] MEDS: D5/0.45%NSS with KCL 20 MEQ 1000 IV ×2 (11:05→23:17)
[2024-05-08 12:04] LABS: Glucose - Point of Care 135 mg/dl (70-99)
--- NOTE | 2024-05-08 14:20 | W.SUR.PREOP ---
Pre-Operative Surgical Note
-
I have examined this patient prior to the performance of the scheduled procedure.
The patient's condition is unchanged from the time of the current History and
Physical and the patient is able to undergo the scheduled procedure.
--- NOTE | 2024-05-08 15:23 | CM ---
met with patient at bedside.cont ivf,npo,,for or tomorrow for colon resection.plan probably snf placement.
--- NOTE | 2024-05-08 17:07 | W.IMMPOSTOP ---
Addendum entered and electronically signed by Jeff Aggarwal MD 05/08/24 20:17:
#[id number]
Original Note:
Surgical Immed Post Op Note
-
Primary Surgeon: Alessia
Assisting Surgeon: Andreea CERRATO
Pre-op Diagnosis: Malignant bowel obstruction
Post-op Diagnosis: Malignant bowel obstruction
Procedure Performed: Laparoscopic assisted ileocecectomy
Anesthesia Type: GETA +0.25% Marcaine
Specimen / Cultures: Distal ileum with cecum
Estimated Blood Loss: 40 mL
Complications: None immediate
Operative Findings: large infiltrating mass at terminal ileum with resultant partial obstruction. Adjacent loop of distal ileum adherent and involved in mass as well. Single bowel resection resected en bloc involving distal 2 feet of ileum and
cecum. [id number] ileocolonic anastomosis. No additional sites of impending bowel obstruction. Additional areas of peritoneal metastasis noted but no generalized carcinomatosis.
Patient's son updated postop in the waiting area
[2024-05-08 17:37] LABS: Glucose - Point of Care 136 mg/dl (70-99)
[2024-05-08 18:48] LABS: Glucose - Point of Care 153 mg/dl (70-99)
[2024-05-08] MEDS: OFIRMEV 100 IV (19:42)
--- NOTE | 2024-05-08 20:07 | RESPNOTE ---
pt did not bring in home cpap machine, non compliant at home. hospital machine offered and declined
[2024-05-08] MEDS: D5/0.45%NSS with KCL 20 MEQ IV (21:03)
[2024-05-08] MEDS: APRESOLINE 5 MG IV (21:07)
[2024-05-08 23:49] LABS: Glucose - Point of Care 207 mg/dl (70-99)
[2024-05-09] VITALS (26 sets, daily range): BP systolic 106–181; BP diastolic 54–75; BMI 32.2
[2024-05-09] MEDS: NOVOLOG FLEXPEN-LOW RESISTANCE 2 UNITS SC (00:55)
[2024-05-09] MEDS: NOVOLOG FLEXPEN-LOW RESISTANCE 1 UNITS SC (05:56)
[2024-05-09 06:02] LABS: Glucose - Point of Care 185 mg/dl (70-99)
[2024-05-09 06:46] LABS: Hematocrit 37.5 % (37.0-47.0); Mean Corpuscular Hgb 28.7 pg (27.0-31.0); Mean Corpuscular Volume 89.7 fL (81.0-99.0); Mean Platelet Volume 10.6 fL (7.4-10.4); Platelet Count 211 10^3/uL (130-400); Red Blood Cell Count 4.18 10^6/uL (4.20-5.40); Red Cell Dist. Width 14.6 % (11.5-14.5); White Blood Cell Count 10.1 10^3/uL (4.8-10.8)
[2024-05-09 06:53] LABS: Blood Urea Nitrogen 9 mg/dl (7-17); Calcium 8.2 mg/dl (8.4-10.2); Carbon Dioxide 27 mmol/L (22-30); Chloride 103 mmol/L (98-107); Estimated Creatinine Clearance 56 ml/min; Glucose 218 mg/dl (70-99); Potassium 4.2 mmol/L (3.5-5.1); Sodium 134 mmol/L (135-145); eGFR > 60.00
--- NOTE | 2024-05-09 07:20 | W.PN.HOSP.TC ---
Today's Communication/Plan
-
For lab colectomy
Assessment / Plan
Assessment / Plan
NAD, resting comfortably in bed
Scleral anicteric
Moist mucous membranes, ngt yeloow bile
No JVD
CTA bilateral
Normal S1-S2 no murmurs
Soft nontender nondistended bowel sounds active
No peripheral pitting edema
Moves extremities spontaneously
AAOx3
Impression:
Patient is an 83y F with PMH significant for HTN and DM-II who presents to ED complaining of abdominal pain and N/V.
SBO with concern for malignant obstruction
Other conditions:
Benign hypertension
Diabetes type 2 NIDDM.
Suspect cognitive dysfunction.
Plan:
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
CT scan suggest soft tissue lesion at site of transition, lymphadenopathy, hepatic and pulmonary metastasis
Interventional radiology consultation for liver biopsy
CEA 24
Status post liver mass biopsy on 05/06
NG tube placed in the emergency room.
N.p.o.
IV fluids monitor electrolytes
General surgery consultation
Oncology consultation
Benign Hypertension
- Hold PO meds acutely.
- IV hydralazine as needed for higher BPs.
DM-II
- Stable. Hold PO meds.
- Follow glucose and cover with SSI as needed.
- Update A1C 6.7
DVT Prophylaxis: SCDs
Code Status: Full
Seen and examined on 05/08/24 at 9:55 AM
Anticipated Discharge: 24 - 48 hours
Subjective/Interval History
-
Date of Service: May 08, 2024
seen and examined
ngt in place
for lap colectomy
Objective Data
-
Labs:
Laboratory Results
05/09/24
05:47
WBC 10.1
Hgb 12.0
Hct 37.5
Plt Count 211
Sodium 134 L
Potassium 4.2
Chloride 103
Carbon Dioxide 27
BUN 9
Creatinine 0.7
Glucose 218 H
Calcium 8.2 L
Vital Signs:
Vital Signs
Temp Pulse Resp BP Pulse Ox
98.9 F 68 19 181/75 98
05/09/24 04:00 05/09/24 06:30 05/09/24 06:30 05/09/24 05:00 05/09/24 06:30
I&O
05/08/24 05/09/24 05/10/24
06:59 06:59 06:59
Intake Total 1200 / 1200 1340 / 1340
Output Total 1550 / 1550
Balance 1200 / 1200 -210 / -210
[2024-05-09] MEDS: PROTONIX IV 40 MG IV (09:06)
[2024-05-09] MEDS: NSS (PRESERVATIVE FREE) 10 ML IV (09:06)
[2024-05-09] MEDS: OFIRMEV 100 IV ×2 (09:06→21:40)
--- NOTE | 2024-05-09 09:34 | PTCARENOTE ---
pt awake, alert, oriented x 2-3; [place]. She states 'my stomach is aching'. Offirmev given IV. NG tube right nare to low intermmitent suction draining brown. verifies for good placement and irrigated per protocol. hypoactive bowel sounds. abdomen is
soft. abdominal incisions/puncture sites non-reddened, no drainage, surgical glue present. Sinus rhythm on monitor with rates in 60's. pox 99% on oxygen 2L. call nuñez in place. bed in lowest postition. continuing to closely monitor
--- NOTE | 2024-05-09 10:59 | W.PN.HOSP.TC ---
Today's Communication/Plan
-
Follow surgery recommendation continue NGT once able to initiate diet start clear liquid diet
Assessment / Plan
Assessment / Plan
NAD, resting comfortably in bed
Scleral anicteric
Moist mucous membranes, NGT continues to drain yellow/green bile
No JVD
CTA bilateral
Normal S1-S2 no murmurs
Soft nontender nondistended bowel sounds active
Vertical 5 cm incision line looks well-approximated without evidence of erythema warmth purulent drainage. Smaller horizontal incisions. Trochanters replaced looks well-approximated severe erythema swelling purulent drainage.
No peripheral pitting edema
Moves extremities spontaneously
AAOx3
Impression:
Patient is an 83y F with PMH significant for HTN and DM-II who presents to ED complaining of abdominal pain and N/V.
SBO with concern for malignant obstruction
Other conditions:
Benign hypertension
Diabetes type 2 NIDDM.
Suspect cognitive dysfunction.
Plan:
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
CT scan suggest soft tissue lesion at site of transition, lymphadenopathy, hepatic and pulmonary metastasis
Interventional radiology consultation for liver biopsy
CEA 24
Status post liver mass biopsy on 05/06
NG tube placed in the emergency room.
Continue n.p.o.
POD 1, s/p laparoscopic assisted ileocolectomy with ileocolonic anastomosis in the setting of malignant bowel obstruction. Tolerated procedure well.
Follow surgery recommendations on when to remove NGT and to initiate diet
Benign Hypertension
- Hold PO meds acutely.
- IV hydralazine as needed for higher BPs.
DM-II
- Stable. Hold PO meds.
- Follow glucose and cover with SSI as needed.
- Update A1C 6.7
DVT Prophylaxis: SCDs
Code Status: Full
Anticipated Discharge: > 48 hours
Subjective/Interval History
-
Date of Service: May 09, 2024
Seen and examined. No new complaints. No acute overnight events.
Objective Data
-
Labs:
Laboratory Results
05/09/24
05:47
WBC 10.1
Hgb 12.0
Hct 37.5
Plt Count 211
Sodium 134 L
Potassium 4.2
Chloride 103
Carbon Dioxide 27
BUN 9
Creatinine 0.7
Glucose 218 H
Calcium 8.2 L
Vital Signs:
Vital Signs
Temp Pulse Resp BP Pulse Ox
98.1 F 69 22 181/75 99
05/09/24 07:06 05/09/24 08:30 05/09/24 08:30 05/09/24 05:00 05/09/24 08:30
I&O
05/08/24 05/09/24 05/10/24
06:59 06:59 06:59
Intake Total 1200 / 1200 1340 / 1340
Output Total 1550 / 1550
Balance 1200 / 1200 -210 / -210
[2024-05-09] MEDS: DILAUDID 0.25 MG IV (11:44)
[2024-05-09 11:57] LABS: Glucose - Point of Care 139 mg/dl (70-99)
--- NOTE | 2024-05-09 14:31 | W.PN.GS2 ---
Addendum entered and electronically signed by Jeff Aggarwal MD 05/09/24 15:58:
Patient seen and examined in postoperative follow-up with nurse practitioner. Agree with documented progress note. This is a delayed entry.
Patient pleasant and sitting in chair at her hospital bedside. Her 2 sons are in the room as well.
Postoperative pain controlled
No nausea
AFVSS
NAD AAO to self
ABD: Soft, obese, nondistended, mild tenderness palpation at incision sites.
NG tube with light bilious/gastric contents
A/P: POD #1 status post lap assisted ileocecectomy for malignant bowel obstruction at ileocecal valve
NG tube decompression
IV fluid hydration
Continue Bose today
Routine postoperative supportive care
Follow-up labs tomorrow a.m.
Reviewed with sons at bedside and patient.
Original Note:
Today's Communication / Plan
-
Maintain NGT
Assessment / Plan
-
83F with SBO at distal ileum 2/2 malignancy with imaging findings suspicious for hepatic and pulmonary mets now POD #1 lap assisted ileocecectomy with ileocolonic anastomosis
IR sampling of hepatic lesion prior to surgery. path sent from OR and pending
CEA is elevated >5x over normal
AFVSS
NGT with minimal outputs
Labs stable post op
Plan:
NPO/IVF/NGT
OOB as able
Continue bose, plan void trial in am
IS while awake
Start Lovenox 40mg sq for VTE ppx, scd's while in bed
Subjective Data
-
Date of Service: May 09, 2024
Patient seen and examined at bedside with Dr. Aggarwal. Denies passage of flatus. Some right sided abdominal pain. Denies n/v.
Objective Data
-
Intake and Output
05/08/24 05/09/2424
06:59 06:59 06:59
Intake Total 1200 / 1200 1340 / 1340
Output Total 1550 / 1550 700 / 700
Balance 1200 / 1200 -210 / -210 -700 / -700
Intake:
IV fluids (Total) 1200 / 1200 1150 / 1150
Normosol 50 / 50
IV piggybacks 100 / 100
Amount instilled into GI Tube ( 90 / 90
Total)
[place] Sump 90 / 90
Output:
Gastrointestinal tube output ( 100 / 100
Total)
Elmore Sump 100 / 100
Urine, Bose 1450 / 1450 700 / 700
Other:
Number of approximated MODERATE 3
amounts of urine
Vital Signs
Temp Pulse Resp BP Pulse Ox
98.1 F 69 22 181/75 99
05/09/24 07:06 05/09/24 08:30 05/09/24 08:30 05/09/24 05:00 05/09/24 08:30
Lab Results
05/09/24 05:47
05/09/24 05:47
Calcium 8.2 mg/dl (8.4-10.2) L 05/09/24 05:47
Total Bilirubin 0.7 mg/dl (0.2-1.3) 05/04/24 17:37
AST 32 U/L (14-36) 05/04/24 17:37
ALT 20 U/L (0-35) 05/04/24 17:37
Alkaline Phosphatase 120 U/L (38-126) 05/04/24 17:37
Total Protein 7.0 g/dl (6.3-8.2) 05/04/24 17:37
Albumin 4.4 g/dl (3.5-5.0) 05/04/24 17:37
Physical Exam
-
Gen: NAD, [place]
Abd: soft, obese, mild generalized tenderness, NGT with gastric outputs
Incisions with intact glue, no erythema
[2024-05-09] MEDS: NOVOLOG FLEXPEN-LOW RESISTANCE SC ×3 (14:44→23:17)
[2024-05-09] MEDS: D5/0.45%NSS with KCL 20 MEQ IV (18:06)
[2024-05-09] MEDS: D5/0.45%NSS with KCL 20 MEQ 1000 IV (18:06)
[2024-05-09] MEDS: LOVENOX 40 MG SC (18:07)
[2024-05-09 18:22] LABS: Glucose - Point of Care 137 mg/dl (70-99)
--- NOTE | 2024-05-09 20:34 | PTCARENOTE ---
Assumed care of pt at 1900. Pt is A/O x3, forgetful, irritable, needs to be coaxed into cooperating at times. Offers multiple complaints, however, when asked if she was in pain she said 'only a little' and denied the need for pain medication at that
time. Educated patient that she should notify me if she is in pain so that it does not get out of control and she verbalized understanding. No c/o nausea, pt tolerating NGT to right nare which is currently to LIS draining brown drainage. Physical
assessment completed, see nursing shift assessment flowsheet for full details. SR 70s on monitor, SpO2 98% on 2LNC. Call nuñez and personal items within reach.
[2024-05-09 23:28] LABS: Glucose - Point of Care 140 mg/dl (70-99)
[2024-05-10] VITALS (9 sets, daily range): BP systolic 133–172; BP diastolic 56–134; BMI 33.2; BMI 32.9
[2024-05-10] MEDS: D5/0.45%NSS with KCL 20 MEQ IV (02:52)
[2024-05-10] MEDS: D5/0.45%NSS with KCL 20 MEQ 1000 IV ×2 (03:21→16:34)
[2024-05-10 05:59] LABS: Hematocrit 33.3 % (37.0-47.0); Hemoglobin 10.9 g/dL (12.0-16.0); Mean Corp Hgb Conc. 32.7 g/dL (33.0-37.0); Mean Corpuscular Hgb 28.8 pg (27.0-31.0); Mean Corpuscular Volume 88.1 fL (81.0-99.0); Mean Platelet Volume 10.1 fL (7.4-10.4); Platelet Count 224 10^3/uL (130-400); Red Blood Cell Count 3.78 10^6/uL (4.20-5.40); Red Cell Dist. Width 14.9 % (11.5-14.5); White Blood Cell Count 9.5 10^3/uL (4.8-10.8)
[2024-05-10 06:24] LABS: Blood Urea Nitrogen 11 mg/dl (7-17); Calcium 8.4 mg/dl (8.4-10.2); Carbon Dioxide 29 mmol/L (22-30); Chloride 103 mmol/L (98-107); Estimated Creatinine Clearance 50 ml/min; Glucose 148 mg/dl (70-99); Sodium 136 mmol/L (135-145); eGFR > 60.00
[2024-05-10] MEDS: NOVOLOG FLEXPEN-LOW RESISTANCE SC ×3 (06:40→18:34)
[2024-05-10] MEDS: PROTONIX IV 40 MG IV (08:31)
[2024-05-10] MEDS: NSS (PRESERVATIVE FREE) 10 ML IV (08:31)
--- NOTE | 2024-05-10 10:55 | W.PN.GS2 ---
Addendum entered and electronically signed by Jeff Aggarwal MD 05/10/24 12:45:
Patient seen in follow-up with nurse practitioner. Agree with documented progress note
Comfortably resting in bed doing word finding puzzles
Denies abdominal pain other than that incision and right-sided, denies nausea
AFVSS
Minimal NG tube outputs -removed
ABD: Soft, nondistended, obese, mild tenderness palpation midline incision and right side. No rebound rigidity or guarding.
Assessment/plan: POD #2 status post lap assisted ileocecectomy for malignant obstruction at ileocecal valve
NG tube removed for comfort but remain n.p.o. except ice chips/sips awaiting GI recovery
Routine supportive postoperative care
Original Note:
Today's Communication / Plan
-
NGT removed, ok for sips of clears
Assessment / Plan
-
83F with SBO at distal ileum 2/2 malignancy with imaging findings suspicious for hepatic and pulmonary mets now POD #2 lap assisted ileocecectomy with ileocolonic anastomosis
IR sampling of hepatic lesion prior to surgery. path sent from OR and pending
CEA is elevated >5x over normal
AFVSS
NGT with minimal outputs: removed at bedside
Labs stable post op
Plan:
NPO except sips of clears/ice chips. Await ROBF prior to advancing diet
OOB/Ambulate
Void trial today
IS while awake
Start Lovenox 40mg sq for VTE ppx, scd's while in bed
Ok for transfer out of IMU to med/surg floor from surgical standpoint. Medical management as per hospitalist
Subjective Data
-
Date of Service: May 10, 2024
Patient seen and examined at bedside with Dr. Aggarwal. Denies n/v. Denies pain. Working through a book of puzzles. Not sure if she passed flatus.
Objective Data
-
Intake and Output
05/09/24 05/10/24 05/11/24
06:59 06:59 06:59
Intake Total 1340 / 1340 2460 / 2460
Output Total 1550 / 1550 2475 / 2475
Balance -210 / -210 -15 / -15
Intake:
IV fluids (Total) 1150 / 1150 2150 / 2150
Normosol 50 / 50
IV piggybacks 100 / 100 100 / 100
Amount instilled into GI Tube ( 90 / 90 210 / 210
Total)
Nicholas Sump 90 / 90 210 / 210
Output:
Gastrointestinal tube output ( 100 / 100 350 / 350
Total)
Nicholas Sump 100 / 100 350 / 350
Urine, [place] 1450 / 1450 2125 / 2125
Vital Signs
Temp Pulse Resp BP Pulse Ox
98.1 F 77 21 146/57 98
05/10/24 07:20 05/10/24 10:00 05/10/24 10:00 05/10/24 10:00 05/10/24 10:00
Lab Results
05/10/24 05:26
05/10/24 05:26
Calcium 8.4 mg/dl (8.4-10.2) 05/10/24 05:26
Total Bilirubin 0.7 mg/dl (0.2-1.3) 05/04/24 17:37
AST 32 U/L (14-36) 05/04/24 17:37
ALT 20 U/L (0-35) 05/04/24 17:37
Alkaline Phosphatase 120 U/L (38-126) 05/04/24 17:37
Total Protein 7.0 g/dl (6.3-8.2) 05/04/24 17:37
Albumin 4.4 g/dl (3.5-5.0) 05/04/24 17:37
Physical Exam
-
Gen: NAD, PILOT STATION
Abd: soft, obese, mild generalized tenderness, NGT with low amount of gastric outputs
Incisions with intact glue, no erythema
--- NOTE | 2024-05-10 10:58 | PTCARENOTE ---
Rec'd pt this AM. Due to void at 1230 post bose removal. Vital signs stable. remains NPO.
--- NOTE | 2024-05-10 11:25 | W.PN.HOSP.TC ---
Today's Communication/Plan
-
ngt to be removed by surgery
still not cleared for diet, will need to wait for surgical recs for this prior to restarting
downgrade to medsurg
Assessment / Plan
Assessment / Plan
NAD, resting comfortably in bed
Scleral anicteric
Moist mucous membranes, NGT continues to drain dark green bile, cannister quite full
No JVD
CTA bilateral
Normal S1-S2 no murmurs
Soft nontender nondistended bowel sounds active
Vertical 5 cm incision line looks well-approximated without evidence of erythema warmth purulent drainage. Smaller horizontal incisions. Trochanters replaced looks well-approximated severe erythema swelling purulent drainage.
No peripheral pitting edema
Moves extremities spontaneously
AAOx3
Impression:
Patient is an 83y F with PMH significant for HTN and DM-II who presents to ED complaining of abdominal pain and N/V.
SBO with concern for malignant obstruction
Other conditions:
Benign hypertension
Diabetes type 2 NIDDM.
Suspect cognitive dysfunction.
Plan:
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
CT scan suggest soft tissue lesion at site of transition, lymphadenopathy, hepatic and pulmonary metastasis
Interventional radiology consultation for liver biopsy
CEA 24
Status post liver mass biopsy on 05/06
NG tube placed in the emergency room.
Continue n.p.o.
POD 2, s/p laparoscopic assisted ileocolectomy with ileocolonic anastomosis in the setting of malignant bowel obstruction. Tolerated procedure well.
Follow surgery recommendations on when to remove NGT and to initiate diet
Benign Hypertension
- Hold PO meds acutely.
- IV hydralazine as needed for higher BPs.
DM-II
- Stable. Hold PO meds.
- Follow glucose and cover with SSI as needed.
- Update A1C 6.7
DVT Prophylaxis: SCDs
Code Status: Full
Anticipated Discharge: 24 - 48 hours
Subjective/Interval History
-
Date of Service: May 10, 2024
seen and examined
in good spirits
no acute complaitns
ngt still in place
Objective Data
-
Labs:
Laboratory Results
05/10/24
05:26
WBC 9.5
Hgb 10.9 L
Hct 33.3 L
Plt Count 224
Sodium 136
Potassium 4.0
Chloride 103
Carbon Dioxide 29
BUN 11
Creatinine 0.8
Glucose 148 H
Calcium 8.4
Vital Signs:
Vital Signs
Temp Pulse Resp BP Pulse Ox
98.1 F 77 21 146/57 98
05/10/24 07:20 05/10/24 10:00 05/10/24 10:00 05/10/24 10:00 05/10/24 10:00
I&O
05/09/24 05/10/24 05/11/24
06:59 06:59 06:59
Intake Total 1340 / 1340 2460 / 2460
Output Total 1550 / 1550 2475 / 2475
Balance -210 / -210 -15 / -15
[2024-05-10 12:41] LABS: Glucose - Point of Care 129 mg/dl (70-99)
--- NOTE | 2024-05-10 14:18 | TRANSFER ---
Pt downgraded to M/S. Report given to Raissa on 3.
[2024-05-10] MEDS: LOVENOX 40 MG SC (16:33)
[2024-05-10 18:33] LABS: Glucose - Point of Care 100 mg/dl (70-99)
[2024-05-11 00:12] LABS: Glucose - Point of Care 109 mg/dl (70-99)
[2024-05-11] MEDS: NOVOLOG FLEXPEN-LOW RESISTANCE SC ×4 (00:15→18:27)
[2024-05-11] MEDS: D5/0.45%NSS with KCL 20 MEQ 1000 IV ×3 (04:17→18:25)
[2024-05-11 06:01] LABS: Glucose - Point of Care 107 mg/dl (70-99)
--- NOTE | 2024-05-11 06:07 | W.PN.HOSP.TC ---
Today's Communication/Plan
-
glycemic control
blood pressure control
diet as per surgery
PT/OT
Assessment / Plan
Assessment / Plan
Physical
General: NAD, sitting up comfortably in chair
HEENT: Scleral anicteric Moist mucous membranes off NGT
Neck: No JVD
Resp: CTA bilateral
Cardio: Normal S1-S2 no murmurs
Abd: Soft nontender nondistended bowel sounds active
Ext: No peripheral pitting edema
Neuro: AAOx3
Impression:
Patient is an 83y F with PMH significant for HTN and DM-II who presents to ED complaining of abdominal pain and N/V.
SBO with concern for malignant obstruction
Other conditions:
Benign hypertension
Diabetes type 2 NIDDM.
Suspect cognitive dysfunction.
Plan:
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
CT scan suggest soft tissue lesion at site of transition, lymphadenopathy, hepatic and pulmonary metastasis
Interventional radiology consultation for liver biopsy
CEA 24
Status post liver mass biopsy on 05/06
s/p laparoscopic assisted ileocolectomy with ileocolonic anastomosis in the setting of malignant bowel obstruction. Tolerated procedure well.
surgery oncology evals appreciated
Benign Hypertension
- Hold PO meds acutely.
- IV hydralazine as needed for higher BPs.
DM-II
- Stable. Hold PO meds.
- Follow glucose and cover with SSI as needed.
- Update A1C 6.7
DVT Prophylaxis: SCDs
Code Status: Full
Anticipated Discharge: 24 - 48 hours
Subjective/Interval History
-
Date of Service: May 11, 2024
No acute distress sitting up comfortably in chair. Eager to eat. Reports bowel movements. AOx3 though mentation seems slow at times. Hard of Hearing.
Objective Data
-
Labs:
Laboratory Results
05/11/24
06:00
WBC Pending
Hgb Pending
Hct Pending
Plt Count Pending
Sodium Pending
Potassium Pending
Chloride Pending
Carbon Dioxide Pending
BUN Pending
Creatinine Pending
Glucose Pending
Calcium Pending
Vital Signs:
Vital Signs
Temp Pulse Resp BP Pulse Ox
97.9 F 73 16 161/61 98
05/10/24 23:00 05/10/24 23:00 05/10/24 23:00 05/10/24 23:00 05/10/24 23:00
I&O
05/09/24 05/10/24 05/11/24
06:59 06:59 06:59
Intake Total 1340 / 1340 2460 / 2460 700 / 700
Output Total 1550 / 1550 2475 / 2475 350 / 350
Balance -210 / -210 -15 / -15 350 / 350
[2024-05-11 07:00] VITALS: BP 171/67
[2024-05-11] MEDS: NSS (PRESERVATIVE FREE) 10 ML IV (08:14)
[2024-05-11] MEDS: PROTONIX IV 40 MG IV (08:15)
--- NOTE | 2024-05-11 10:51 | W.PN.GS2 ---
Today's Communication / Plan
-
Trial of clears
Assessment / Plan
-
83F with SBO at distal ileum 2/2 malignancy with imaging findings suspicious for hepatic and pulmonary mets now POD #3 lap assisted ileocecectomy with ileocolonic anastomosis
IR sampling of hepatic lesion prior to surgery. path sent from OR and pending
CEA is elevated >5x over normal
AFVSS
+BM's overnight. No nausea.
Labs stable post op
Plan:
Trial of clears
OOB/Ambulate. PT consult placed.
IS while awake
Multimodal analgesics as needed
Start Lovenox 40mg sq for VTE ppx, scd's while in bed
Subjective Data
-
Date of Service: May 11, 2024
Patient seen and examined at bedside with Dr. Patrick. ArnieOB to chair and doing a word finding puzzle. Denies n/v. Notes she has been passing a lot of stool. Not sure if she passed gas. Denies belching.
Objective Data
-
Intake and Output
05/10/24 08 08/03/30
06:59 06:59 06:59
Intake Total 2460 / 2460 700 / 700 0 / 0
Output Total 2475 / 2475 350 / 350
Balance -15 / -15 350 / 350 0 / 0
Intake:
Oral fluids 0 / 0
IV fluids (Total) 2150 / 2150 700 / 700
IV piggybacks 100 / 100
Amount instilled into GI Tube ( 210 / 210
Total)
[place] Sump 210 / 210
Output:
Gastrointestinal tube output ( 350 / 350
Total)
[place] Sump 350 / 350
Urine, Aguilar 2124 / 2124
Urine, Voided 350 / 350
Other:
Number of approximated SMALL 1
amounts of urine
Number of approximated MODERATE 1
amounts of urine
Number of approximated LARGE 3
amounts of urine
How many times incontinent 1
MODERATE amount urine
How many times incontinent 2
SATURATED amount urine
Vital Signs
Temp Pulse Resp BP Pulse Ox
98.0 F 71 16 171/67 100
05/11/24 07:00 05/11/24 07:00 05/11/24 07:00 05/11/24 07:00 05/11/24 07:00
Calcium 8.4 mg/dl (8.4-10.2) 05/10/24 05:26
Total Bilirubin 0.7 mg/dl (0.2-1.3) 05/04/24 17:37
AST 32 U/L (14-36) 05/04/24 17:37
ALT 20 U/L (0-35) 05/04/24 17:37
Alkaline Phosphatase 120 U/L (38-126) 05/04/24 17:37
Total Protein 7.0 g/dl (6.3-8.2) 05/04/24 17:37
Albumin 4.4 g/dl (3.5-5.0) 05/04/24 17:37
Physical Exam
-
Gen: NAD, OUZINKIE
Abd: soft, obese, NT, minimal distention
Incisions with intact glue, no erythema
[2024-05-11 10:52] LABS: Hemoglobin 10.7 g/dL (12.0-16.0); Mean Corp Hgb Conc. 32.4 g/dL (33.0-37.0); Mean Corpuscular Hgb 29.2 pg (27.0-31.0); Mean Corpuscular Volume 89.9 fL (81.0-99.0); Mean Platelet Volume 10.1 fL (7.4-10.4); Platelet Count 233 10^3/uL (130-400); Red Blood Cell Count 3.67 10^6/uL (4.20-5.40); Red Cell Dist. Width 14.9 % (11.5-14.5); White Blood Cell Count 7.4 10^3/uL (4.8-10.8)
--- NOTE | 2024-05-11 10:57 | W.PN.ONC2 ---
Today's Communication / Plan
-
follow for path
Impression
Impression
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
Postbiopsy right upper quadrant pain
Diabetes
Obesity
Hard of hearing, possible dementia
Plan
Plan
s/p Laparoscopic assisted ileocecectomy, follow for patholgy
Subjective/Objective
Chief Complaint
Moving bowels and passing flatus
mild abdominal TTP
Subjective
no new complaints
Vital Signs:
Vital Signs
Temp Pulse Resp BP Pulse Ox
98.0 F 71 16 171/67 100
05/11/24 07:00 05/11/24 07:00 05/11/24 07:00 05/11/24 07:00 05/11/24 07:00
Lab Results:
Laboratory Data
WBC 7.4 10^3/uL (4.8-10.8) 05/11/24 09:53
Hgb 10.7 g/dL (12.0-16.0) L 05/11/24 09:53
Plt Count 233 10^3/uL (130-400) 05/11/24 09:53
PT 14.2 Sec (11.4-14.6) 05/05/24 08:14
INR 1.11 05/05/24 08:14
eGFR > 60.00 05/10/24 05:26
Physical Exam
HEENT: Moist Mucous Membranes; No Jaundice
Cardiology: S1 and S2
Pulmonary: Clear
GI: Soft (TTP), Distended and Other (surgical site C/D/I)
Extremities: No Edema
Neuro: Non Focal
Review of Systems
Review of Systems
ROS notable for subjective, otherwise negative
--- NOTE | 2024-05-11 11:16 | W.PN.ONC2 ---
Today's Communication / Plan
-
path pending.
advancing diet as tolerated
Impression
Impression
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
Postbiopsy right upper quadrant pain
Diabetes
Obesity
Hard of hearing, possible dementia
Plan
Plan
s/p Laparoscopic assisted ileocecectomy for obstructing cecal mass. path pending.
CEA 24
imaging c/w liver and lung metastases. findings highly suspicious for metastatic colon adenocarcinoma.
await final path to review potential role for palliative systemic therapy vs. comfort care only depending on patient's GOC, PS with underlying dementia.
Subjective/Objective
Chief Complaint
SBO obstruction due to malignant mass, metastatic disease
Subjective
pt sitting up in chair. NGT removed yesteraday. denies abdominal pain, nausea. pt interested in eating. she had Bm this am.
Vital Signs:
Vital Signs
Temp Pulse Resp BP Pulse Ox
98.0 F 71 16 171/67 100
05/11/24 07:00 05/11/24 07:00 05/11/24 07:00 05/11/24 07:00 05/11/24 07:00
Lab Results:
Laboratory Data
WBC 7.4 10^3/uL (4.8-10.8) 05/11/24 09:53
Hgb 10.7 g/dL (12.0-16.0) L 05/11/24 09:53
Plt Count 233 10^3/uL (130-400) 05/11/24 09:53
PT 14.2 Sec (11.4-14.6) 05/05/24 08:14
INR 1.11 05/05/24 08:14
eGFR > 60.00 05/10/24 05:26
Physical Exam
HEENT: Moist Mucous Membranes; No Jaundice
Cardiology: Normal Sinus Rhythm
Pulmonary: Clear
GI: Soft (tender); No Normal Bowel Sounds (decreased)
Extremities: No Edema
Neuro: Non Focal
Review of Systems
Review of Systems
Constitutional: Denies Fever
Respiratory: Denies Dyspnea
Gastrointestinal: Denies Nausea/Vomiting
Neurological: Denies Headache
[2024-05-11 11:19] LABS: Glucose - Point of Care 146 mg/dl (70-99)
[2024-05-11 11:33] LABS: Blood Urea Nitrogen 14 mg/dl (7-17); Calcium 8.5 mg/dl (8.4-10.2); Carbon Dioxide 27 mmol/L (22-30); Chloride 104 mmol/L (98-107); Estimated Creatinine Clearance 50 ml/min; Glucose 147 mg/dl (70-99); Potassium 3.8 mmol/L (3.5-5.1); Sodium 135 mmol/L (135-145); eGFR > 60.00
[2024-05-11 15:17] VITALS: BP 146/50
[2024-05-11 15:30] VITALS: BP 137/54; PULSE 65; O2SAT 99
--- NOTE | 2024-05-11 16:31 | CM ---
CM following for d/c planning
Chart reviewed
POD # 3 - s/p lap assisted ileocecectomy
PT/OT pend
Plan - anticipate SNF when medically ready
[2024-05-11 16:42] LABS: Glucose - Point of Care 138 mg/dl (70-99)
[2024-05-11] MEDS: LOVENOX 40 MG SC (18:25)
[2024-05-11 21:18] LABS: Glucose - Point of Care 180 mg/dl (70-99)
[2024-05-11 23:09] VITALS: BP 150/54
[2024-05-12] MEDS: D5/0.45%NSS with KCL 20 MEQ 1000 IV (04:07)
[2024-05-12 05:24] VITALS: BMI 32.8
--- NOTE | 2024-05-12 07:11 | W.PN.HOSP.TC ---
Today's Communication/Plan
-
Follow pathology results
diet as per surgery
PT/OT
pain control
glycemic control
Assessment / Plan
Assessment / Plan
Physical
General: NAD, sitting up comfortably in chair
HEENT: Scleral anicteric Moist mucous membranes off NGT
Neck: No JVD
Resp: CTA bilateral
Cardio: Normal S1-S2 no murmurs
Abd: Soft nontender nondistended bowel sounds active
Ext: No peripheral pitting edema
Neuro: AAOx3
Impression:
Patient is an 83y F with PMH significant for HTN and DM-II who presents to ED complaining of abdominal pain and N/V.
SBO with concern for malignant obstruction
Other conditions:
Benign hypertension
Diabetes type 2 NIDDM.
Suspect cognitive dysfunction.
Plan:
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
CT scan suggest soft tissue lesion at site of transition, lymphadenopathy, hepatic and pulmonary metastasis
Interventional radiology consultation for liver biopsy
CEA 24
Status post liver mass biopsy on 05/06
s/p laparoscopic assisted ileocolectomy with ileocolonic anastomosis in the setting of malignant bowel obstruction. Tolerated procedure well.
surgery oncology evals appreciated
Benign Hypertension
- Hold PO meds acutely.
- IV hydralazine as needed for higher BPs.
DM-II
- Stable. Hold PO meds.
- Follow glucose and cover with SSI as needed.
- Update A1C 6.7
DVT Prophylaxis: SCDs
Code Status: Full
discussed with patient and patient's son Cuate
I spent a total of 50 minutes with the patient or on the floor. More than 50% of this time involved counseling and coordination of care.
Anticipated Discharge: 24 - 48 hours
Subjective/Interval History
-
Date of Service: May 12, 2024
No acute distress siting up comfortably in chair.
Objective Data
-
Labs:
Laboratory Results
05/12/24
06:00
WBC Pending
Hgb Pending
Hct Pending
Plt Count Pending
Sodium Pending
Potassium Pending
Chloride Pending
Carbon Dioxide Pending
BUN Pending
Creatinine Pending
Glucose Pending
Calcium Pending
Vital Signs:
Vital Signs
Temp Pulse Resp BP Pulse Ox
97.8 F 72 20 150/54 93
05/11/24 23:09 05/11/24 23:09 05/11/24 23:09 05/11/24 23:09 05/11/24 23:09
I&O
05/11/24 05/12/24 05/13/24
06:59 06:59 06:59
Intake Total 700 / 700 1440 / 1440
Output Total 350 / 350
Balance 350 / 350 1440 / 1440
[2024-05-12 07:25] LABS: Glucose - Point of Care 154 mg/dl (70-99)
[2024-05-12 07:53] VITALS: BP 121/64
[2024-05-12] MEDS: PROTONIX IV 40 MG IV (08:40)
[2024-05-12] MEDS: NSS (PRESERVATIVE FREE) 10 ML IV (08:41)
[2024-05-12] MEDS: NOVOLOG FLEXPEN-LOW RESISTANCE 1 UNITS SC ×2 (08:42→12:35)
[2024-05-12 09:02] LABS: Hematocrit 31.2 % (37.0-47.0); Hemoglobin 9.9 g/dL (12.0-16.0); Mean Corp Hgb Conc. 31.7 g/dL (33.0-37.0); Mean Corpuscular Hgb 28.2 pg (27.0-31.0); Mean Corpuscular Volume 88.9 fL (81.0-99.0); Mean Platelet Volume 9.8 fL (7.4-10.4); Platelet Count 235 10^3/uL (130-400); Red Blood Cell Count 3.51 10^6/uL (4.20-5.40); Red Cell Dist. Width 15.1 % (11.5-14.5)
--- NOTE | 2024-05-12 09:20 | W.PN.GS2 ---
Today's Communication / Plan
-
-- Fulls
Assessment / Plan
-
83F with SBO at distal ileum 2/2 malignancy with imaging findings suspicious for hepatic and pulmonary mets now POD #4 lap assisted ileocecectomy with ileocolonic anastomosis
IR sampling of hepatic lesion prior to surgery. path sent from OR and pending
CEA is elevated >5x over normal
AFVSS
No reports fo further BMs. No nausea. Trial of fulls
Labs reviewed, acute anemia due to blood loss and dilutional, continue to trend
Plan:
Trial of fulls
OOB/Ambulate. PT consult placed.
IS while awake
Multimodal analgesics as needed
Start Lovenox 40mg sq for VTE ppx, scd's while in bed
Subjective Data
-
Date of Service: May 12, 2024
History limited by baseline cognitive status. Denies worsening abdominal pain. Denies nausea or vomiting. No reports of BMs from nursing.
Objective Data
-
Intake and Output
05/11/24 05/12/24 05/13/24
06:59 06:59 06:59
Intake Total 700 / 700 1440 / 1440
Output Total 350 / 350
Balance 350 / 350 1440 / 1440
Intake:
Oral fluids 240 / 240
IV fluids (Total) 700 / 700 1200 / 1200
Output:
Urine, Voided 350 / 350
Other:
Number of approximated SMALL 1 1
amounts of urine
Number of approximated MODERATE 1 2
amounts of urine
Number of approximated LARGE 3
amounts of urine
How many times incontinent 1
MODERATE amount urine
How many times incontinent 2
SATURATED amount urine
Vital Signs
Temp Pulse Resp BP Pulse Ox
98.4 F 71 17 121/64 96
05/12/24 07:53 05/12/24 07:53 05/12/24 07:53 05/12/24 07:53 05/12/24 07:53
Lab Results
05/12/24 08:16
Calcium 8.5 mg/dl (8.4-10.2) 05/11/24 09:53
Total Bilirubin 0.7 mg/dl (0.2-1.3) 05/04/24 17:37
AST 32 U/L (14-36) 05/04/24 17:37
ALT 20 U/L (0-35) 05/04/24 17:37
Alkaline Phosphatase 120 U/L (38-126) 05/04/24 17:37
Total Protein 7.0 g/dl (6.3-8.2) 05/04/24 17:37
Albumin 4.4 g/dl (3.5-5.0) 05/04/24 17:37
Physical Exam
-
Gen: NAD
Abd: obese, soft, tender to palpation, non-peritoneal, incisions c/d/i - no ecchymosis or drainage, mild erythema
[2024-05-12 09:33] LABS: Blood Urea Nitrogen 11 mg/dl (7-17); Calcium 8.5 mg/dl (8.4-10.2); Carbon Dioxide 29 mmol/L (22-30); Chloride 105 mmol/L (98-107); Estimated Creatinine Clearance 50 ml/min; Glucose 138 mg/dl (70-99); Magnesium 1.7 mg/dl (1.6-2.3); Phosphorus 2.3 mg/dl (2.5-4.5); Sodium 138 mmol/L (135-145); eGFR > 60.00
--- NOTE | 2024-05-12 10:26 | W.PN.ONC2 ---
Today's Communication / Plan
-
I reviewed liver pathology with pt bedside and son, Cuate, via phone. We discussed palliative and comfort focused options to treat at stage IV colorectal adenocarcinoma. We also reviewed that PS and nutritional status need to be optimized to be
eligible for antineoplastic therapy. Goals remain restorative.
OP follow up 2-3 weeks to review NGS/molecular testing for possible palliative systemic therapy depending on performance status and GOC. Pt would benefit from palliative care service in the ambulatory setting for advance care planning, symptom
management, and GOC support.
Impression
Impression
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 Liver biopsy diagnostic for metastatic colorectal adenocarcinoma, NGS pending, colon biospy pending
Postbiopsy right upper quadrant pain
Diabetes
Obesity
Hard of hearing, possible dementia
Plan
Plan
s/p Laparoscopic assisted ileocecectomy for obstructing cecal mass, surgical pathology pending
05/07 Liver biopsy diagnostic for metastatic colorectal adenocarcinoma, NGS/molecular test pending
CEA 24
imaging c/w liver and lung metastases.
await final path to review potential role for palliative systemic therapy vs. comfort care only depending on patient's GOC, performance status, and comorbidities
Subjective/Objective
Chief Complaint
Sitting in chair
denies pain
denies BM, passing flatus. denies n/v
Subjective
no new complaints
Vital Signs:
Vital Signs
Temp Pulse Resp BP Pulse Ox
98.4 F 71 17 121/64 96
05/12/24 07:53 05/12/24 07:53 05/12/24 07:53 05/12/24 07:53 05/12/24 07:53
Lab Results:
Laboratory Data
WBC 7.0 10^3/uL (4.8-10.8) 05/12/24 08:16
Hgb 9.9 g/dL (12.0-16.0) L 05/12/24 08:16
Plt Count 235 10^3/uL (130-400) 05/12/24 08:16
PT 14.2 Sec (11.4-14.6) 05/05/24 08:14
INR 1.11 05/05/24 08:14
eGFR > 60.00 05/12/24 08:16
Physical Exam
HEENT: Moist Mucous Membranes; No Jaundice
Cardiology: Normal Sinus Rhythm
Pulmonary: Clear
GI: Soft and Distended
Extremities: Pulses Present
Neuro: Non Focal
Review of Systems
Review of Systems
ROS notable for subjective, otherwise negative
[2024-05-12 11:34] LABS: Glucose - Point of Care 184 mg/dl (70-99)
[2024-05-12] MEDS: MAGNESIUM SULFATE 50 IV (11:47)
[2024-05-12 11:56] VITALS: BP 151/52; PULSE 74
[2024-05-12] MEDS: NEUTRA-PHOS POWDER PACKET 250 MG PO ×3 (13:26→21:07)
[2024-05-12 14:16] LABS: Iron < 20 ug/dl (37-170)
[2024-05-12 14:20] LABS: Total Iron Binding Capacity 211 ug/dl (265-497)
[2024-05-12 15:13] VITALS: BP 145/71
[2024-05-12 16:34] LABS: Glucose - Point of Care 205 mg/dl (70-99)
[2024-05-12] MEDS: LOVENOX 40 MG SC (18:16)
[2024-05-12] MEDS: NOVOLOG FLEXPEN-LOW RESISTANCE 2 UNITS SC (19:11)
[2024-05-12 21:27] LABS: Glucose - Point of Care 126 mg/dl (70-99)
[2024-05-12 23:14] VITALS: BP 115/62
[2024-05-13 05:14] VITALS: BMI 33.0
[2024-05-13 07:00] VITALS: BP 96/56
--- NOTE | 2024-05-13 07:29 | W.PN.HOSP.TC ---
Today's Communication/Plan
-
Follow pathology results
diet as per surgery
PT/OT
pain control
glycemic control
once IV iron supplementation converted to PO
follow culture
Assessment / Plan
Assessment / Plan
Physical
General: NAD, sitting up comfortably in chair
HEENT: Scleral anicteric Moist mucous membranes
Neck: No JVD
Resp: CTA bilateral
Cardio: Normal S1-S2 no murmurs
Abd: Soft nontender nondistended bowel sounds active
Ext: No peripheral pitting edema
Neuro: AAOx3
Impression:
Patient is an 83y F with PMH significant for HTN and DM-II who presents to ED complaining of abdominal pain and N/V.
SBO with concern for malignant obstruction
Other conditions:
Benign hypertension
Diabetes type 2 NIDDM.
Suspect cognitive dysfunction.
Plan:
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
CT scan suggest soft tissue lesion at site of transition, lymphadenopathy, hepatic and pulmonary metastasis
Interventional radiology consultation for liver biopsy
CEA 24
Status post liver mass biopsy on 05/06
s/p laparoscopic assisted ileocolectomy with ileocolonic anastomosis in the setting of malignant bowel obstruction. Tolerated procedure well.
surgery oncology evals appreciated diet advanced to low residue
Benign Hypertension
- Hold PO meds acutely.
- IV hydralazine as needed for higher BPs.
DM-II
- Stable. Hold PO meds.
- Follow glucose and cover with SSI as needed.
- Update A1C 6.7
Severe Iron Deficiency
Likely Anemia of Chronic disease
Fever resolved with Tylenol
-IV iron supplementation once (developed shaking of upper ext's and fever 100.6 after infusion possible adverse rxn)
-PO Iron supplementation to start tomorrow
-follow blood culture urinalysis
Mild Lactic Acidosis
-possibly d/t dehydration vs shaking as above
-less likely infxn, no white count elevation, once fever 100.6 resolved w/ Tylenol
-once IVF bolus 500 cc
-will cont to monitor
DVT Prophylaxis: SCDs
Code Status: Full
discussed with patient and patient's son Aureliano at bedside
I spent a total of 50 minutes with the patient or on the floor. More than 50% of this time involved counseling and coordination of care.
Anticipated Discharge: 24 - 48 hours
Subjective/Interval History
-
Date of Service: May 13, 2024
Continues to report abd pain manageable with current pain regimen. Day's events notable for episode shaking upper ext's and fever 100.6 that started following IV iron infusion. Improved with tylenol and pain control.
Objective Data
-
Labs:
Laboratory Results
05/13/24
06:00
WBC Pending
Hgb Pending
Hct Pending
Plt Count Pending
Sodium Pending
Potassium Pending
Chloride Pending
Carbon Dioxide Pending
BUN Pending
Creatinine Pending
Glucose Pending
Calcium Pending
Vital Signs:
Vital Signs
Temp Pulse Resp BP Pulse Ox
98.0 F 76 18 115/62 94
05/12/24 23:14 05/12/24 23:14 05/12/24 23:14 05/12/24 23:14 05/12/24 23:14
I&O
05/12/24 05/13/24 05/14/24
06:59 06:59 06:59
Intake Total 1440 / 1440 870 / 870
Balance 1440 / 1440 870 / 870
[2024-05-13 07:52] LABS: Glucose - Point of Care 140 mg/dl (70-99)
[2024-05-13 08:34] LABS: Hematocrit 30.9 % (37.0-47.0); Mean Corp Hgb Conc. 32.4 g/dL (33.0-37.0); Mean Corpuscular Hgb 28.7 pg (27.0-31.0); Mean Corpuscular Volume 88.8 fL (81.0-99.0); Mean Platelet Volume 9.8 fL (7.4-10.4); Platelet Count 224 10^3/uL (130-400); Red Blood Cell Count 3.48 10^6/uL (4.20-5.40); White Blood Cell Count 6.8 10^3/uL (4.8-10.8)
[2024-05-13] MEDS: NOVOLOG FLEXPEN-LOW RESISTANCE SC ×2 (08:40→18:05)
[2024-05-13] MEDS: NSS (PRESERVATIVE FREE) 10 ML IV (08:41)
[2024-05-13] MEDS: PROTONIX IV 40 MG IV (08:41)
[2024-05-13] MEDS: NEUTRA-PHOS POWDER PACKET 250 MG PO (08:42)
[2024-05-13 10:10] LABS: Blood Urea Nitrogen 7 mg/dl (7-17); Calcium 8.3 mg/dl (8.4-10.2); Carbon Dioxide 27 mmol/L (22-30); Chloride 104 mmol/L (98-107); Estimated Creatinine Clearance 50 ml/min; Glucose 121 mg/dl (70-99); Potassium 3.9 mmol/L (3.5-5.1); Sodium 137 mmol/L (135-145); eGFR > 60.00
[2024-05-13 11:33] LABS: Glucose - Point of Care 155 mg/dl (70-99)
--- NOTE | 2024-05-13 12:26 | W.PN.GS2 ---
Today's Communication / Plan
-
Adv to LRD
Assessment / Plan
-
83F with SBO at distal ileum 2/2 malignancy with imaging findings suspicious for hepatic and pulmonary mets now POD #5 lap assisted ileocecectomy with ileocolonic anastomosis
IR sampling of hepatic lesion prior to surgery. path sent from OR and pending
CEA is elevated >5x over normal
AFVSS
Passing BMs and flatus. No nausea. Leanna fulls
Labs reviewed, acute anemia due to blood loss and dilutional, continue to trend
Plan:
Adv to LRD
OOB/Ambulate. PT consult placed.
IS while awake
Multimodal analgesics as needed
Cont Lovenox 40mg sq for VTE ppx, scd's while in bed
Subjective Data
-
Date of Service: May 13, 2024
AFVSS, improving, passing flatus an BMs, leanna fulls, pain controlled
Objective Data
-
Intake and Output
05/12/24 05/13/24 05/14/24
06:59 06:59 06:59
Intake Total 1440 / 1440 870 / 870
Balance 1440 / 1440 870 / 870
Intake:
Oral fluids 240 / 240 870 / 870
IV fluids (Total) 1200 / 1200
Other:
Number of approximated SMALL 1
amounts of urine
Number of approximated MODERATE 2 3
amounts of urine
Number of approximated LARGE 3 2
amounts of urine
How many times incontinent 1
MODERATE amount urine
Vital Signs
Temp Pulse Resp BP Pulse Ox
98.0 F 67 18 96/56 93
05/13/24 07:00 05/13/24 07:00 05/13/24 07:00 05/13/24 07:00 05/13/24 07:00
Lab Results
05/13/24 08:00
05/13/24 08:00
Calcium 8.3 mg/dl (8.4-10.2) L 05/13/24 08:00
Phosphorus 3.0 mg/dl (2.5-4.5) 05/13/24 08:00
Magnesium 2.0 mg/dl (1.6-2.3) 05/13/24 08:00
Total Bilirubin 0.7 mg/dl (0.2-1.3) 05/04/24 17:37
AST 32 U/L (14-36) 05/04/24 17:37
ALT 20 U/L (0-35) 05/04/24 17:37
Alkaline Phosphatase 120 U/L (38-126) 05/04/24 17:37
Total Protein 7.0 g/dl (6.3-8.2) 05/04/24 17:37
Albumin 4.4 g/dl (3.5-5.0) 05/04/24 17:37
Physical Exam
-
Gen: NAD
Abd: soft, incision cdi with glue and expected dawit-incisional ecchymosis
[2024-05-13] MEDS: NOVOLOG FLEXPEN-LOW RESISTANCE 1 UNITS SC (13:36)
[2024-05-13 15:00] VITALS: BP 82/54
[2024-05-13] MEDS: FERRLECIT 110 MG IV (15:00)
--- NOTE | 2024-05-13 15:47 | CM ---
Case management following for discharge planning
Chart reviewed. Met with pt and son at bedside
PT recs SNF - discussed with pt & son - agreeable to SNF - [facility]
Referrals sent in Care port
Plan - anticipate SNF when medically stable
[2024-05-13] MEDS: DILAUDID 0.5 MG IV ×2 (16:06→18:46)
[2024-05-13 16:55] LABS: Glucose - Point of Care 141 mg/dl (70-99)
[2024-05-13 17:20] LABS: Folate 4.3 ng/ml (2.76-20); Vitamin B12 563 pg/ml (239-931)
[2024-05-13 18:22] VITALS: BP 172/76
[2024-05-13] MEDS: TYLENOL 1000 MG PO (18:23)
[2024-05-13] MEDS: LOVENOX 40 MG SC (18:51)
[2024-05-13 19:54] LABS: Hematocrit 33.1 % (37.0-47.0); Hemoglobin 10.6 g/dL (12.0-16.0); Mean Corpuscular Hgb 28.4 pg (27.0-31.0); Mean Corpuscular Volume 88.7 fL (81.0-99.0); Mean Platelet Volume 9.9 fL (7.4-10.4); Platelet Count 323 10^3/uL (130-400); Red Blood Cell Count 3.66 10^6/uL (4.20-5.40); Red Cell Dist. Width 15.1 % (11.5-14.5); White Blood Cell Count 9.6 10^3/uL (4.8-10.8)
[2024-05-13 19:58] LABS: ALT (SGPT) 20 U/L (0-35); AST (SGOT) 30 U/L (14-36); Albumin 3.1 g/dl (3.5-5.0); Alkaline Phosphatase 133 U/L (38-126); Blood Urea Nitrogen 7 mg/dl (7-17); Calcium 8.5 mg/dl (8.4-10.2); Carbon Dioxide 30 mmol/L (22-30); Chloride 98 mmol/L (98-107); Creatine Phosphokinase 33 U/L (30-135); Estimated Creatinine Clearance 44 ml/min; Glucose 189 mg/dl (70-99); Magnesium 1.7 mg/dl (1.6-2.3); Phosphorus 2.9 mg/dl (2.5-4.5); Potassium 4.4 mmol/L (3.5-5.1); Sodium 134 mmol/L (135-145); Total Bilirubin 0.5 mg/dl (0.2-1.3); Total Protein 5.7 g/dl (6.3-8.2); eGFR > 60.00
[2024-05-13 20:02] LABS: Lactic Acid 2.6 mmol/L (0.7-2.0)
[2024-05-13] MEDS: NSS 500 IV (20:55)
[2024-05-13 21:34] LABS: Glucose - Point of Care 186 mg/dl (70-99)
[2024-05-13 23:00] VITALS: BP 136/41
[2024-05-13 23:05] LABS: Urine Albumin Negative (Neg - Trace); Urine Bilirubin Negative (Negative); Urine Character Clear (Clear); Urine Color Yellow; Urine Glucose Negative (Negative); Urine Ketone Negative (Negative); Urine Leukocyte Negative (Negative); Urine Nitrite Negative (Negative); Urine Occult Blood Negative (Negative); Urine Urobilinogen Negative (Neg - 1+)
[2024-05-14 06:00] VITALS: BMI 32.9
--- NOTE | 2024-05-14 07:22 | W.PN.HOSP.TC ---
Today's Communication/Plan
-
Tylenol Ibuprofen prn fever control
empiric Cefipime
repeat CT abd/pelvis IV/oral contrast
gentle IV hydration
repeat blood culture
ID eval
Assessment / Plan
Assessment / Plan
Physical
General: NAD, sitting up comfortably in chair
HEENT: Scleral anicteric Moist mucous membranes
Neck: No JVD
Resp: CTA bilateral
Cardio: Normal S1-S2 no murmurs
Abd: Soft nontender nondistended bowel sounds active
Ext: No peripheral pitting edema
Neuro: AAOx3 periodic shaking upper extremities noted.
Impression:
Patient is an 83y F with PMH significant for HTN and DM-II who presents to ED complaining of abdominal pain and N/V.
SBO with concern for malignant obstruction
Other conditions:
Benign hypertension
Diabetes type 2 NIDDM.
Suspect cognitive dysfunction.
Plan:
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
CT scan suggest soft tissue lesion at site of transition, lymphadenopathy, hepatic and pulmonary metastasis
Interventional radiology consultation for liver biopsy
CEA 24
Status post liver mass biopsy on 05/06
s/p laparoscopic assisted ileocolectomy with ileocolonic anastomosis in the setting of malignant bowel obstruction. Tolerated procedure well.
surgery eval appreciated advanced to low residue
Oncology eval appreciated stage IV colorectal ca, recommended oupt follow up for possible palliative systemic therapy depending on performance status and GOC
Benign Hypertension
- ARB resumed w/ holding parameters
- IV hydralazine as needed for higher BPs.
DM-II
- home metformin on hold.
- Follow glucose and cover with SSI as needed.
- A1C 6.7
Severe Iron Deficiency
Likely Anemia of Chronic disease
-IV iron supplementation once
-PO Iron supplementation started, cont
Intermittently spiking Fever with associate abd pain and shaking upper ext's started 05/13
-Mild Lactic Acidosis possibly d/t dehydration vs shaking as above since resolved with IVF bolus
-no white count elevation, once fever 100.6 resolved w/ Tylenol
-initially attributed to adverse rxn IV Iron dextrose infusion, this was ruled out when patient developed 2nd episode late afternoon 05/14 despite discontinuation
-102.5 rectally 2nd episode, Tylenol administered shaking since resolved
-Blood Cx from previous episode NGTD, Blood Cx repeated
-repeat CT abd/pelvis w/ IV oral contrast ordered
-started empiric Cefipime (PCN allergy)
-Tylenol prn, Ibuprofen if fever not resolved w/ Tylenol
-ID eval requested
DVT Prophylaxis: SCDs
Code Status: Full
discussed with patient bedisde and patient's son Cuate over phone
I spent a total of 58 minutes with the patient or on the floor. More than 50% of this time involved counseling and coordination of care.
Anticipated Discharge: > 48 hours
Subjective/Interval History
-
Date of Service: May 14, 2024
Seen and examined at bedside earlier in the day no acute distress upper extremity shaking resolved afebrile. Patient reported feeling well especially after bowel movement. Later in the day shaking returned with elevated rectal temp 102.7 AOx3
throughout event, reported abd pain similar to yesterday's episode. BP stable, desaturating to 80s on room air, requiring 2L NC supplementation to maintain saturation 90s.
Objective Data
-
Labs:
Laboratory Results
05/13/24 05/14/24
19:29 06:00
WBC 9.6 Pending
Hgb 10.6 L Pending
Hct 33.1 L Pending
Plt Count 323 D Pending
Sodium 134 L Pending
Potassium 4.4 Pending
Chloride 98 Pending
Carbon Dioxide 30 Pending
BUN 7 Pending
Creatinine 0.9 Pending
Glucose 189 H Pending
Calcium 8.5 Pending
Total Bilirubin 0.5
AST 30
ALT 20
Alkaline Phosphatase 133 H
Vital Signs:
Vital Signs
Temp Pulse Resp BP Pulse Ox
98.2 F 83 20 136/41 96
05/14/24 03:00 05/13/24 23:00 05/13/24 23:00 05/13/24 23:00 05/13/24 23:00
I&O
05/13/24 05/14/24 05/15/24
06:59 06:59 06:59
Intake Total 870 / 870 2069
Output Total 170 / 170
Balance 870 / 870 1899
[2024-05-14 07:37] LABS: Glucose - Point of Care 139 mg/dl (70-99)
[2024-05-14] MEDS: NOVOLOG FLEXPEN-LOW RESISTANCE SC ×2 (07:38→11:40)
[2024-05-14] MEDS: PROTONIX IV 40 MG IV (07:39)
[2024-05-14] MEDS: NSS (PRESERVATIVE FREE) 10 ML IV (07:39)
[2024-05-14] MEDS: FEOSOL 325 MG PO (07:39)
[2024-05-14 07:47] LABS: Hematocrit 29.4 % (37.0-47.0); Hemoglobin 9.6 g/dL (12.0-16.0); Mean Corp Hgb Conc. 32.7 g/dL (33.0-37.0); Mean Corpuscular Hgb 28.8 pg (27.0-31.0); Mean Corpuscular Volume 88.3 fL (81.0-99.0); Mean Platelet Volume 9.5 fL (7.4-10.4); Platelet Count 222 10^3/uL (130-400); Red Blood Cell Count 3.33 10^6/uL (4.20-5.40); Red Cell Dist. Width 14.9 % (11.5-14.5); White Blood Cell Count 8.5 10^3/uL (4.8-10.8)
[2024-05-14] MEDS: DILAUDID 0.5 MG IV ×2 (07:47→16:07)
[2024-05-14 07:51] VITALS: BP 163/57
[2024-05-14 07:55] LABS: Lactic Acid 1.3 mmol/L (0.7-2.0)
[2024-05-14 08:21] LABS: Blood Urea Nitrogen 9 mg/dl (7-17); Calcium 8.4 mg/dl (8.4-10.2); Carbon Dioxide 28 mmol/L (22-30); Chloride 104 mmol/L (98-107); Estimated Creatinine Clearance 44 ml/min; Glucose 133 mg/dl (70-99); Magnesium 1.8 mg/dl (1.6-2.3); Phosphorus 3.1 mg/dl (2.5-4.5); Potassium 3.8 mmol/L (3.5-5.1); Sodium 137 mmol/L (135-145); eGFR > 60.00
--- NOTE | 2024-05-14 09:14 | W.PN.GS2 ---
Today's Communication / Plan
-
`
Assessment / Plan
-
83F with SBO at distal ileum 2/2 malignancy with imaging findings suspicious for hepatic and pulmonary mets now POD #6 lap assisted ileocecectomy with ileocolonic anastomosis
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
AFVSS - 1x temp yesterday 100.6
Passing BMs and flatus. No nausea.
more tender on today's exam then prior but VSS and WBC normal today
Plan:
continue LRD and monitor
---if worsening pain/fever will repeat CT a/p imaging
OOB/Ambulate. PT consult placed.
IS while awake
Multimodal analgesics as needed
Cont Lovenox 40mg sq for VTE ppx, scd's while in bed
Subjective Data
-
Date of Service: May 14, 2024
pt seen and examined
reports abd pain but denies nausea
+fl and loose BMs
Objective Data
-
Intake and Output
05/13/24 05/14/24 05/15/24
06:59 06:59 06:59
Intake Total 870 / 870 2069 / 2069
Output Total 170 / 170
Balance 870 / 870 1900 / 1900
Intake:
Oral fluids 870 / 870 1570 / 1570
IV fluids (Total) 500 / 500
Output:
Liquid stool amount 20 / 20
Rectum 20 / 20
Urine, Voided 150 / 150
Other:
Number of approximated MODERATE 3
amounts of urine
Number of approximated LARGE 2 1
amounts of urine
How many times incontinent 3
MODERATE amount urine
How many times incontinent 1
SATURATED amount urine
Number of unmeasured liquid
stools
Rectum 1
Vital Signs
Temp Pulse Resp BP Pulse Ox
98.0 F 69 18 163/57 96
05/14/24 07:51 05/14/24 07:51 05/14/24 07:51 05/14/24 07:51 05/14/24 07:51
Lab Results
05/14/24 07:27
05/14/24 07:27
Calcium 8.4 mg/dl (8.4-10.2) 05/14/24 07:27
Phosphorus 3.1 mg/dl (2.5-4.5) 05/14/24 07:27
Magnesium 1.8 mg/dl (1.6-2.3) 05/14/24 07:27
Total Bilirubin 0.5 mg/dl (0.2-1.3) 05/13/24 19:29
AST 30 U/L (14-36) 05/13/24 19:29
ALT 20 U/L (0-35) 05/13/24 19:29
Alkaline Phosphatase 133 U/L (38-126) H 05/13/24 19:29
Total Protein 5.7 g/dl (6.3-8.2) L 05/13/24 19:29
Albumin 3.1 g/dl (3.5-5.0) L 05/13/24 19:29
Physical Exam
-
NAD AAO
ABD: softly distended, and generalized tenderness
incision with glue dressings
[2024-05-14 11:36] LABS: Glucose - Point of Care 137 mg/dl (70-99)
[2024-05-14] MEDS: TYLENOL 1000 MG PO ×2 (16:16→22:13)
--- NOTE | 2024-05-14 16:29 | PTCARENOTE ---
notified provider Sheu that pt was shaking violently, afternoon vitals just taken, normal temp reported by tech. Temp rechecked within 10 mins of orig vitals by this nurse and temp was up to 100.2 orally, rectal 102.7. Pt also had pain of 9 in
abdomen and received PRN Dilaudid 0.5mg IV and 1000mg Tylenol for temp. O2 sats were 88, pt placed on 2L NC. Pt resting comfortably in bed, call nuñez within reach. Additional orders for blood cultures,Ibuprofen, fluids, antibiotics, I.D. eval, and
repeat CT of abdomen r/o infection.
[2024-05-14 16:40] LABS: Glucose - Point of Care 174 mg/dl (70-99)
[2024-05-14 16:41] VITALS: BP 154/80
[2024-05-14] MEDS: NSS 1000 IV (16:55)
[2024-05-14] MEDS: STERILE WATER FOR INJECTION 10 ML IV (17:13)
[2024-05-14] MEDS: MAXIPIME 2000 MG IV (17:13)
[2024-05-14] MEDS: LOVENOX 40 MG SC (17:14)
[2024-05-14] MEDS: NOVOLOG FLEXPEN-LOW RESISTANCE 1 UNITS SC (18:04)
[2024-05-14 21:09] LABS: Glucose - Point of Care 231 mg/dl (70-99)
[2024-05-14 23:25] VITALS: BP 131/45
[2024-05-15] VITALS (12 sets, daily range): BP systolic 62–156; BP diastolic 33–67; PULSE 60; O2SAT 99; BMI 33.1
[2024-05-15] MEDS: OMNIPAQUE 50 ML PO (06:18)
[2024-05-15] MEDS: STERILE WATER FOR INJECTION 10 ML IV (06:19)
[2024-05-15] MEDS: MAXIPIME 2000 MG IV (06:19)
[2024-05-15] MEDS: NSS 1000 IV (06:35)
--- NOTE | 2024-05-15 07:14 | W.PN.HOSP.TC ---
Today's Communication/Plan
-
abx as per ID
pain control
IR eval
PT/OT
Assessment / Plan
Assessment / Plan
Physical
General: NAD, sitting up comfortably in chair
HEENT: Scleral anicteric Moist mucous membranes
Neck: No JVD
Resp: CTA bilateral
Cardio: Normal S1-S2 no murmurs
Abd: Soft nontender nondistended bowel sounds active
Ext: No peripheral pitting edema
Neuro: AAOx3 upper ext shaking resolved
Impression:
Patient is an 83y F with PMH significant for HTN and DM-II who presents to ED complaining of abdominal pain and N/V.
SBO with concern for malignant obstruction
Other conditions:
Benign hypertension
Diabetes type 2 NIDDM.
Suspect cognitive dysfunction.
Plan:
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
CT scan suggest soft tissue lesion at site of transition, lymphadenopathy, hepatic and pulmonary metastasis
Interventional radiology consultation for liver biopsy
CEA 24
Status post liver mass biopsy on 05/06
s/p laparoscopic assisted ileocolectomy with ileocolonic anastomosis in the setting of malignant bowel obstruction. Tolerated procedure well.
surgery eval appreciated advanced to low residue
Oncology eval appreciated stage IV colorectal ca, recommended oupt follow up for possible palliative systemic therapy depending on performance status and GOC
Benign Hypertension
- ARB resumed w/ holding parameters
- IV hydralazine as needed for higher BPs.
DM-II
- home metformin on hold.
- Follow glucose and cover with SSI as needed.
- A1C 6.7
Severe Iron Deficiency
Likely Anemia of Chronic disease
-IV iron supplementation once
-PO Iron supplementation started, cont
Intermittently spiking Fever with associate abd pain and shaking upper ext's started 05/13
-Mild Lactic Acidosis possibly d/t dehydration vs shaking as above since resolved with IVF bolus
-no white count elevation, once fever 100.6 resolved w/ Tylenol
-initially attributed to adverse rxn IV Iron dextrose infusion, this was ruled out when patient developed 2nd episode late afternoon 05/14 despite discontinuation
-102.5 rectally 2nd episode, Tylenol administered shaking since resolved
-Blood Cx from previous episode NGTD, Blood Cx repeated
-repeat CT abd/pelvis w/ oral contrast appreciated (was unable to get IV contrast due to poor access at time of study) imaging concerning for abscess per CRS review IR consulted
-Tylenol prn, Ibuprofen if fever not resolved w/ Tylenol
-ID eval appreciated empiric cefipime metro converted to unasyn
DVT Prophylaxis: SCDs
Code Status: Full
I spent a total of 58 minutes with the patient or on the floor. More than 50% of this time involved counseling and coordination of care.
Anticipated Discharge: > 48 hours
Subjective/Interval History
-
Date of Service: May 15, 2024
No acute distress sitting up comfortably in chair. Shaking resolved. Afebrile.
Objective Data
-
Labs:
Laboratory Results
05/15/24
06:00
WBC Pending
Hgb Pending
Hct Pending
Plt Count Pending
Sodium Pending
Potassium Pending
Chloride Pending
Carbon Dioxide Pending
BUN Pending
Creatinine Pending
Glucose Pending
Calcium Pending
Vital Signs:
Vital Signs
Temp Pulse Resp BP Pulse Ox
98.7 F 71 18 131/45 99
05/14/24 23:25 05/14/24 23:25 05/14/24 23:25 05/14/24 23:25 05/14/24 23:25
I&O
05/14/24 05/15/24 05/16/24
06:59 06:59 06:59
Intake Total 2069 880 / 880
Output Total 170 / 170
Balance 1899
[2024-05-15 08:14] LABS: Hematocrit 28.9 % (37.0-47.0); Hemoglobin 9.5 g/dL (12.0-16.0); Mean Corp Hgb Conc. 32.9 g/dL (33.0-37.0); Mean Corpuscular Hgb 29.2 pg (27.0-31.0); Mean Corpuscular Volume 88.9 fL (81.0-99.0); Mean Platelet Volume 10.3 fL (7.4-10.4); Platelet Count 253 10^3/uL (130-400); Red Blood Cell Count 3.25 10^6/uL (4.20-5.40); Red Cell Dist. Width 15.2 % (11.5-14.5); White Blood Cell Count 11.4 10^3/uL (4.8-10.8)
[2024-05-15 08:26] LABS: Glucose - Point of Care 134 mg/dl (70-99)
[2024-05-15] MEDS: LIPITOR 20 MG PO (08:36)
[2024-05-15] MEDS: PROTONIX IV 40 MG IV (08:36)
[2024-05-15] MEDS: FEOSOL 325 MG PO (08:36)
[2024-05-15] MEDS: NSS (PRESERVATIVE FREE) 10 ML IV (08:36)
[2024-05-15] MEDS: NOVOLOG FLEXPEN-LOW RESISTANCE SC ×3 (08:36→18:33)
[2024-05-15] MEDS: BENICAR 20 MG PO (08:40)
[2024-05-15 09:00] LABS: Blood Urea Nitrogen 15 mg/dl (7-17); Calcium 8.4 mg/dl (8.4-10.2); Carbon Dioxide 28 mmol/L (22-30); Chloride 103 mmol/L (98-107); Estimated Creatinine Clearance 44 ml/min; Glucose 122 mg/dl (70-99); Magnesium 1.6 mg/dl (1.6-2.3); Potassium 3.8 mmol/L (3.5-5.1); Sodium 135 mmol/L (135-145); eGFR > 60.00
--- NOTE | 2024-05-15 09:43 | W.PN.GS2 ---
Addendum entered and electronically signed by Roland Gonzalez MD 05/15/24 12:43:
Patient seen and examined. Agree with assessment plan as documented below.
Reports lower abdominal pain. No nausea or vomiting. Unclear on passage of flatus or stool.
Gen: NAD
Abd: soft, tender to palpation in lower abdomen, obese, no diffuse peritonitis, incisions c/d/i - no erythema or drainage, mild ecchymosis
Patient is a 83 yo F with SBO at distal ileum 2/2 malignancy with imaging findings suspicious for hepatic and pulmonary mets now POD #7 lap assisted ileocecectomy with ileocolonic anastomosis
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
Febrile to 102.7 last night, vitals otherwise stable
Passing BMs and flatus. No nausea.
Tenderness to suprapubic area
Mild leukocytosis today
UA neg 05/13
CXR with ?PNA inb the RLL on 05/14 with Cefepime initiated at that time
Plan:
Repeat CT imaging today with IV/PO contrast
NPO
OOB/Ambulate. PT following
IS while awake
Multimodal analgesics as needed
Cont Lovenox 40mg sq for VTE ppx, scd's while in bed
Original Note:
Today's Communication / Plan
-
CT abd/pelvis
Assessment / Plan
-
83F with SBO at distal ileum 2/2 malignancy with imaging findings suspicious for hepatic and pulmonary mets now POD #7 lap assisted ileocecectomy with ileocolonic anastomosis
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
Febrile to 102.7 last night, vitals otherwise stable
Passing BMs and flatus. No nausea.
Tenderness to suprapubic area
Mild leukocytosis today
UA neg 05/13
CXR with ?PNA inb the RLL on 05/14 with cefepime initiated at that time
Plan:
continue LRD and monitor for tolerance
repeat CT imaging today with IV/Po contrast
OOB/Ambulate. PT following
IS while awake
Multimodal analgesics as needed
Cont Lovenox 40mg sq for VTE ppx, scd's while in bed
Subjective Data
-
Date of Service: May 15, 2024
patient seen and examined at bedside with dr gonzalez. benji n/v. no bm this am. reports worsening pain to her lower abdomen
Objective Data
-
Intake and Output
05/14/24 05/15/24 05/16/24
06:59 06:59 06:59
Intake Total 2070 / 2070 880 / 880
Output Total 170 / 170
Balance 1900 / 1900 880 / 880
Intake:
Oral fluids 1570 / 1570 880 / 880
IV fluids (Total) 500 / 500
Output:
Liquid stool amount 20 / 20
Rectum 20 / 20
Urine, Voided 150 / 150
Other:
Number of approximated SMALL 1
amounts of urine
Number of approximated MODERATE 1
amounts of urine
Number of approximated LARGE 1
amounts of urine
How many times incontinent 3 2
MODERATE amount urine
How many times incontinent 1 1
SATURATED amount urine
Number of unmeasured liquid
stools
Rectum 1
Vital Signs
Temp Pulse Resp BP Pulse Ox
97.9 F 70 17 156/47 97
05/15/24 07:00 05/15/24 07:00 05/15/24 07:00 05/15/24 07:00 05/15/24 07:00
Lab Results
05/15/24 07:31
05/15/24 07:31
Calcium 8.4 mg/dl (8.4-10.2) 05/15/24 07:31
Phosphorus 3.0 mg/dl (2.5-4.5) 05/15/24 07:31
Magnesium 1.6 mg/dl (1.6-2.3) 05/15/24 07:31
Total Bilirubin 0.5 mg/dl (0.2-1.3) 05/13/24 19:29
AST 30 U/L (14-36) 05/13/24 19:29
ALT 20 U/L (0-35) 05/13/24 19:
Alkaline Phosphatase 133 U/L (38-126) H 05/13/24 19:29
Total Protein 5.7 g/dl (6.3-8.2) L 05/13/24 19:29
Albumin 3.1 g/dl (3.5-5.0) L 05/13/24 19:29
Physical Exam
-
NAD AAO
ABD: softly distended, and tender suprapubically
incisions with intact glue dressings
--- NOTE | 2024-05-15 11:21 | PTOTSP ---
Speech Language Pathology Evaluation
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 Cannot r/o silent aspiration at bedside this date 2/2 CXR concerning for possible PNA.
Recommend:
1. Soft and bite sized solids (IDDSI 6) 2/2 dentures not present this date; thin liquids
2. Meds as tolerated
3. Strategies: small bites, chew well, partial supervision, alternate bites and sips
4. Aspiration and reflux precautions
5. VSE might be warranted if s/s concerning for aspiration arise in the presence of new intra-abdominal mass
6. [employer] service to follow up at the acute care level and provide dysphagia tx as needed
[2024-05-15] MEDS: FLAGYL 500 MG 100 IV (11:51)
--- NOTE | 2024-05-15 11:51 | W.PN.SURGUPD ---
Surgical Update
Surgical Update
CT imaging reviewed. post op fluid collection noted around region of anastomosis. small bubble or 2 of air in region. no remote free air. no large quantity of local free air. no clear extravasation of oral contrast which does pass through
anastomosis and distally.
d/w pt and her son timothy via phone. recommended IR drainage of fluid collection as potential infectious source for recent fever and todays leukocytosis. pt and her son are in agreement
NPO
cefepime and flagyl for empiric coverage
d/w IR - consult placed and added on to schedule for today
[2024-05-15 11:58] LABS: Glucose - Point of Care 127 mg/dl (70-99)
--- NOTE | 2024-05-15 12:50 | CM ---
Addendum entered by Erika Ordaz 05/15/24 12:59:
PT recs - SNF
[facility]ed [facility] pending bed availability
CM will follow for d/c needs
Plan - anticipate SNF when medically stable
Original Note:
Case management following for discharge planning
Chart reviewed
For IR consult today for drainage of fluid collection
--- NOTE | 2024-05-15 13:49 | CON.ID ---
Addendum entered and electronically signed by Vicky Palacio MD 05/15/24 16:56:
I saw and evaluated the patient. I reviewed the resident�s note and agree with findings and plan as documented in the resident�s note with the following additions/corrections
CC: Abd Pain, N/V
HPI:
Ms Correa is an 83 year old female with history of Psoriatic arthritis, cholecystectomy, DM2 who presented here on 05/05 for abdominal pain, nausea and vomiting which began two days before arrival. Emesis is nonbloody and was prominnent. She
has continued with bowel movements including on the day of arrival; no melena. No fevers or chills. Never had a colonoscopy. Patient is a poor historian and history obtained by chart review.
Since arrival here: she was initially
CT soft tissue lesion at transition site - concerning for malignancy, mets to: R base lung mass, hepatic lesions, peritoneal seeding and fluid concerning for metastatic spread. Small volume ascites seen.
Past History
Medical History: HTN, Renal failure and Other (Psoriatic arthritis, dementia, morbid obesity)
Surgical History: Orthopedic (Right hip replacement)
Social History
Tobacco: former smoker
Living: with family
Alcohol: none
Drugs: none
Medications: reviewed
Allergies:
Penicillin allergy - unknown
Homed meds reviewed
A 12 point ROS was completed and negative except as noted below
Constitutional: Denies Fever or Chills
EENT: Denies Sore Throat
Respiratory: Denies Cough or Trouble Breathing
Cardiac: Denies Chest Pain or Palpitations
Abdomen/GI: Reports Abdominal Pain, Nausea and Vomiting; Denies Diarrhea, Constipation, Bloody Stools or Black Stools
: Denies Dysuria or Frequency
Musculoskeletal: Denies Joint Pain or Edema
Neurological: Denies Dizzy or Headache
Psych: Denies Depression or Anxiety
05/14 Tmax 102.7, bp 156/47, hr 70, rr 17
Exam:
Gen: nontoxic, alert
CV: s1/s2 no murmurs, gallops or rubs
Pulm: clear to auscultation bilaterally
GI: diffuse, mild abdominal tenderness
: no suprapubic tenderness
skin: no rashes
Labs:
reviewed labs through the course of patients stay
wbc nomral until today 11.4, hgb 9.5, plt 253 - no differential done today
last diff 05/08 there was mild L shift and lymphocytopenia
Na 135, cr 0.9
05/05/[address] a/p oral contrast only: 1. Status post distal small bowel resection without convincing evidence for leak or abscess.
2. Small amounts of postoperative intraperitoneal free air and small volume abdominopelvic ascites.
3. Remonstration of metastatic disease as previously described.
Path: metastatic colorectal adenocarcinoma
A&P
Stge IV Colorectal Cancer
Fevers and Rigors
Penicillin allergy - unknown
Dementia
- blood cultures x2 05/14 and 05/13 in progress and no growth to date
- CT small volume of fluid around anastomosis with two small bubbles of air - IR to assess
- small volume ascites - IR already planned to assess the fluid around the anastomosis as above
- if there is sufficient fluid then in addition to culture would assess as for peritonitis with cell count, glucose, protein, LDH
- CXR 05/14: my read known pulmonary nodule described on CT a/p - likely metastasis, unlikely pneumonia
- UA 05/13 no pyuria
- covid ag ordered
- change cefepime/metro to: unasyn
- would hold any systemic outpatient immunosuppression at this time - she denies any to me but is a questionable historian
follow clinically
Note oncology has recommend a palliative approach and comfort focused approach, unclear at this time if systemic therapy will be offered.
AW
Original Note:
Documented by User: Donna Fish MD, Resident 05/15/24 15:46
Chief Complaint / Past History
Chief Complaint
Fever
History of Present Illness
83-year-old female with history of NIDDM, obesity, who presented to the ED with persistent abdominal pain nausea/vomiting x 2 days with no fevers or chills. On arrival pulse ox 91% with rest of vital stable. No leukocytosis, creatinine 1.0.
Imaging revealed small bowel obstruction at the ileocecal junction with hepatic lesions and peritoneal implants suspected to be metastatic disease. SBO secondary to distal ileum malignancy. She underwent lap assisted ileocecectomy with ileocolonic
anastomosis on 05/08.
We were consulted to evaluate intermittent fever with associated abdominal pain and shaking of upper extremities which started on 05/13 with fever of 100.6 noted at 6:30 PM, resolved with Tylenol. Second episode on 05/14 with fever 102.5 at 4:50
PM, resolved with Tylenol. Cause of fever was unclear at the time and empiric cefepime was started (given reported penicillin allergy).
Repeat CT abdomen and pelvis showed small volume abdominopelvic ascites, small amount of postop intraperitoneal free air. Reviewed by surgery: Posterior fluid collection noted around area of anastomosis. IR was consulted to place drain in
intra-abdominal fluid collection.
Past History
Past Medical History: HTN, NIDDM and Other (obesity, Psoriatec arthritis, dementia, hyperlipidemia)
Past Surgical History: Orthopedic (R KARLOS)
Allergy History:
Penicillins Allergy (Verified 05/04/24 17:28)
Unknown
Social History
Tobacco: Former Smoker (Quit 40+ years ago)
Alcohol: None
Drug: None
Family History
Family History: Not Pertinent
Review of Systems
Review of Systems
General: Negative Fever
HEENT: Negative Headache or Pharyngitis
Cardiovascular: Negative Chest Pain, Dyspnea or Palpitations
Gasteroenterology: Other (Abdominal pain)
Genital / Urological: Negative Dysuria
Musculoskeletal: Arthralgias (L knee)
Vital Signs
Temp Pulse Resp BP Pulse Ox
97.9 F 70 17 156/47 97
05/15/24 07:00 05/15/24 07:00 05/15/24 07:00 05/15/24 07:00 05/15/24 07:00
Physical Exam
Physical Exam
Constitutional: No Acute Distress and Comfortable
Cardiovascular: Regular Rate and S1/S2; Negative Murmur or Rub
Pulmonary: Clear and Non Labored; Negative Wheezes, Rales or Rhonchi
Gastrointestinal: Tender (diffusely), Distended, Normal Bowel Sounds and No Guarding
Musculoskeletal: Negative Joint Swelling
Lines: PIV (dorsum of left hand. Nontender, nonerythematous)
Lab / Diagnostic Study Results
05/15/24 07:31
05/15/24 07:31
Abs Immat Gran (auto) 0.1 10^3/uL (0-0.05) H 05/08/24 07:07
Absolute Neuts (auto) 6.7 10^3/uL (1.4-6.5) H 05/08/24 07:07
Absolute Lymphs (auto) 0.9 10^3/uL (1.2-3.4) L 05/08/24 07:07
Absolute Monos (auto) 0.8 10^3/uL (0.1-0.6) H 05/08/24 07:07
Absolute Basos (auto) 0.0 10^3/uL (0-0.2) 05/08/24 07:07
Immature Gran % 0.6 % (0-0.5) H 05/08/24 07:07
Neutrophils % 78.2 % (42.2-75.2) H 05/08/24 07:07
Lymphocytes % 10.3 % (20.5-51.1) L 05/08/24 07:07
Monocytes % 9.7 % (1.7-9.3) H 05/08/24 07:07
Eosinophils % 0.7 % (0-6) 05/08/24 07:07
Basophils % 0.5 % (0-2) 05/08/24 07:07
PT 14.2 Sec (11.4-14.6) 05/05/24 08:14
INR 1.11 05/05/24 08:14
Lactic Acid 1.3 mmol/L (0.7-2.0) 05/14/24 07:27
Microbiology Results
Micro:
05/14/24 17:58 Blood Culture - Pending
Blood/Venous
05/13/24 19:29 Blood Culture - Preliminary
Blood/Venous No Growth in 24 hours- Final report to follow
Assessment / Plan
Postoperative fever
Status post lap assisted ileocecectomy with ileocolonic anastomosis 05/08
SBO secondary to distal ileum malignancy
Metastatic colorectal adenocarcinoma
-COVID negative
-Repeat CT abdomen/pelvis: Status post distal small bowel resection without convincing evidence for leak or abscess. Small amounts of postoperative intraperitoneal free air and small volume abdominopelvic ascites
-Urinalysis 05/13 -negative
-Single blood culture 05/13 -no growth to date
-Repeat blood cultures
-Liver, right lobe, biopsy: Metastatic colorectal adenocarcinoma
-Agree with empiric cefepime and Flagyl
-Order placed for culture of fluid collection and cell count/protein/glucose if able to collect enough fluid intraoperatively
-Will optimize abx coverage based on above
-Likelihood of drug fever is low�no correlation between medications administered and fever patten.

Documented by User: Vicky Palacio MD 05/15/24 16:51
Consultation
-
Date/Time Consultation Requested: 05/14/24 17:11
Date/Time Consultation Performed: 05/14/24 16:49
Requesting Provider: Dr Thomas
Performing Provider: Dr Palacio
Reason for Consultation: intermittent fever spikes w/ shaking SBO malignancy
[2024-05-15 14:18] LABS: COVID-19 Antigen Negative (Negative)
--- NOTE | 2024-05-15 16:09 | CM ---
Case management following for discharge planning
Chart reviewed
For IR consult today for drainage of fluid collection
For SNF when medically ready
[facility] pending bed availability
Plan - trans to SNF when medically ready
[2024-05-15 16:29] LABS: Body Fluid Mononuclear 8.3 %; Body Fluid Polymorphonuclear 91.7 %; Body Fluid WBC 228 /CUMM
[2024-05-15] MEDS: LOVENOX 40 MG SC (16:34)
[2024-05-15] MEDS: UNASYN IV ×2 (16:34→21:28)
[2024-05-15 16:36] LABS: Body Fluid Glucose < 30 mg/dl; Body Fluid Protein 3.3 g/dl
[2024-05-15 16:42] LABS: Body Fluid Second Tech CMC
[2024-05-15 17:09] LABS: Body Fluid LDH 387 U/L
[2024-05-15 17:44] LABS: Glucose - Point of Care 92 mg/dl (70-99)
[2024-05-15 21:04] LABS: Glucose - Point of Care 128 mg/dl (70-99)
[2024-05-16] MEDS: UNASYN IV ×4 (04:47→22:01)
[2024-05-16] MEDS: NSS 1000 IV (04:47)
[2024-05-16 06:01] VITALS: BMI 33.5
[2024-05-16 07:00] VITALS: BP 123/42
--- NOTE | 2024-05-16 07:10 | W.PN.HOSP.TC ---
Today's Communication/Plan
-
cont abx as per ID
follow culture results
diet as per surgery
pain control
PT/OT
Assessment / Plan
Assessment / Plan
Physical
General: NAD, sitting up comfortably in chair
HEENT: Scleral anicteric Moist mucous membranes
Neck: No JVD
Resp: CTA bilateral
Cardio: Normal S1-S2 no murmurs
Abd: Soft nontender nondistended bowel sounds active
Ext: No peripheral pitting edema
Neuro: AAOx3 upper ext shaking resolved
Impression:
Patient is an 83y F with PMH significant for HTN and DM-II who presents to ED complaining of abdominal pain and N/V.
SBO with concern for malignant obstruction
Other conditions:
Benign hypertension
Diabetes type 2 NIDDM.
Suspect cognitive dysfunction.
Plan:
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
CT scan suggest soft tissue lesion at site of transition, lymphadenopathy, hepatic and pulmonary metastasis
Interventional radiology consultation for liver biopsy
CEA 24
Status post liver mass biopsy on 05/06
s/p laparoscopic assisted ileocolectomy with ileocolonic anastomosis in the setting of malignant bowel obstruction. Tolerated procedure well.
surgery eval appreciated advanced to Full liquid diet
Oncology eval appreciated stage IV colorectal ca, recommended oupt follow up for possible palliative systemic therapy depending on performance status and GOC
Benign Hypertension
- ARB resumed w/ holding parameters
- IV hydralazine as needed for higher BPs.
DM-II
- home metformin on hold.
- Follow glucose and cover with SSI as needed.
- A1C 6.7
Severe Iron Deficiency
Likely Anemia of Chronic disease
-IV iron supplementation once
-PO Iron supplementation started, cont
Intermittently spiking Fever with associate abd pain and shaking upper ext's started 05/13
-Mild Lactic Acidosis possibly d/t dehydration vs shaking as above since resolved with IVF bolus
-no white count elevation, once fever 100.6 resolved w/ Tylenol
-initially attributed to adverse rxn IV Iron dextrose infusion, this was ruled out when patient developed 2nd episode late afternoon 05/14 despite discontinuation
-102.5 rectally 2nd episode, Tylenol administered shaking since resolved
-Blood Cx from previous episode NGTD, Blood Cx repeated
-repeat CT abd/pelvis w/ oral contrast appreciated (was unable to get IV contrast due to poor access at time of study) imaging concerning for abscess per CRS review IR consulted percutaneous drainage performed 05/15 15 cc yellow gelatinous fluid cx
pending
-Tylenol prn, Ibuprofen if fever not resolved w/ Tylenol
-ID eval appreciated empiric cefipime metro converted to unasyn, continue
DVT Prophylaxis: SCDs
Code Status: Full
I spent a total of 57 minutes with the patient or on the floor. More than 50% of this time involved counseling and coordination of care.
Anticipated Discharge: 24 - 48 hours
Subjective/Interval History
-
Date of Service: May 16, 2024
Reports feeling well. No further shakes fevers. Eager to eat solid food.
Objective Data
-
Labs:
Laboratory Results
05/16/24
06:54
WBC Pending
Hgb Pending
Hct Pending
Plt Count Pending
Sodium Pending
Potassium Pending
Chloride Pending
Carbon Dioxide Pending
BUN Pending
Creatinine Pending
Glucose Pending
Calcium Pending
Vital Signs:
Vital Signs
Temp Pulse Resp BP Pulse Ox
98.5 F 75 18 91/67 99
05/16/24 03:05 05/15/24 23:20 05/15/24 23:20 05/15/24 23:20 05/15/24 23:20
I&O
05/15/24 05/16/24 05/17/24
06:59 06:59 06:59
Intake Total 880 / 880 2410 / 2410
Output Total 40 / 40
Balance 880 / 880 2370 / 2370
[2024-05-16 07:50] LABS: Glucose - Point of Care 104 mg/dl (70-99)
[2024-05-16 08:00] LABS: Hematocrit 25.6 % (37.0-47.0); Hemoglobin 8.2 g/dL (12.0-16.0); Mean Corpuscular Hgb 28.6 pg (27.0-31.0); Mean Corpuscular Volume 89.2 fL (81.0-99.0); Mean Platelet Volume 10.5 fL (7.4-10.4); Platelet Count 277 10^3/uL (130-400); Red Blood Cell Count 2.87 10^6/uL (4.20-5.40); Red Cell Dist. Width 15.4 % (11.5-14.5); White Blood Cell Count 8.7 10^3/uL (4.8-10.8)
[2024-05-16] MEDS: FEOSOL 325 MG PO (08:19)
[2024-05-16] MEDS: LIPITOR 20 MG PO (08:19)
[2024-05-16] MEDS: NSS (PRESERVATIVE FREE) 10 ML IV (08:19)
[2024-05-16] MEDS: BENICAR 20 MG PO (08:19)
[2024-05-16] MEDS: PROTONIX IV 40 MG IV (08:19)
[2024-05-16] MEDS: NOVOLOG FLEXPEN-LOW RESISTANCE SC ×3 (08:21→16:20)
[2024-05-16 08:46] LABS: Blood Urea Nitrogen 14 mg/dl (7-17); Carbon Dioxide 29 mmol/L (22-30); Chloride 105 mmol/L (98-107); Estimated Creatinine Clearance 45 ml/min; Glucose 77 mg/dl (70-99); Magnesium 1.7 mg/dl (1.6-2.3); Phosphorus 3.5 mg/dl (2.5-4.5); Potassium 3.8 mmol/L (3.5-5.1); Sodium 137 mmol/L (135-145); eGFR > 60.00
--- NOTE | 2024-05-16 11:09 | W.PN.ID1 ---
Date of Service
Date of Service: May 16, 2024
Today's Communication
Continue Unasyn for now.
Assessment / Plan
Postoperative fever - resolving.
Status post lap assisted ileocecectomy with ileocolonic anastomosis 05/08
SBO secondary to distal ileum malignancy
Metastatic colorectal adenocarcinoma - Stage IV
-COVID negative
-Urinalysis 05/13 -negative
-Single blood culture 05/13 -no growth to date
-Repeat blood cultures 05/15 - negative to date
-Liver, right lobe, biopsy: Metastatic colorectal adenocarcinoma
-Repeat CT abdomen/pelvis: Status post distal small bowel resection without convincing evidence for leak or abscess. Small amounts of postoperative intraperitoneal free air and small volume abdominopelvic ascites
- 05/15/24 s/p IR aspiration of 15 cc yellow somewhat gelatinous fluid
Gram stain no organism, CX: Negative to date
- Continue Unasyn (d3 abx) for now pending cx data.
Subjective / Review of Systems
Some abd pain
Vital Signs / Physical Exam
Vital Signs
Vital Signs
Temp Pulse Resp BP Pulse Ox
98.4 F 71 18 123/42 99
05/16/24 07:00 05/16/24 07:00 05/16/24 07:00 05/16/24 07:00 05/16/24 07:00
Physical Exam
Constitutional: No Acute Distress and Obese
Pulmonary: Clear
Gastrointestinal: Soft, Tender (mild tender) and Normal Bowel Sounds
Extremities: Edema (1+ BLE)
Neurological: AO x 3
Objective Data
Lab Data
Lab Results
05/16/24 06:54
05/16/24 06:54
PT 14.2 Sec (11.4-14.6) 05/05/24 08:14
INR 1.11 05/05/24 08:14
Estimated Creat Clear 45 ml/min 05/16/24 06:54
Lactic Acid 1.3 mmol/L (0.7-2.0) 05/14/24 07:27
Total Bilirubin 0.5 mg/dl (0.2-1.3) 05/13/24 19:29
AST 30 U/L (14-36) 05/13/24 19:29
ALT 20 U/L (0-35) 05/13/24 19:29
Alkaline Phosphatase 133 U/L (38-126) H 05/13/24 19:29
Most recent labs reviewed.
Micro Results:
05/15/24 16:08 Wound Culture - Preliminary
Abdomen No growth
Gram Stain - Preliminary
05/13/24 19:29 Blood Culture - Preliminary
Blood/Venous No Growth in 48 hours- Final report to follow
05/14/24 17:58 Blood Culture - Preliminary
Blood/Venous No Growth in 24 hours- Final report to follow
[2024-05-16 11:15] LABS: ALT (SGPT) 10 U/L (0-35); AST (SGOT) 15 U/L (14-36); Alkaline Phosphatase 92 U/L (38-126); Direct Bilirubin 0.2 mg/dl (0.0-0.4); Total Bilirubin 0.4 mg/dl (0.2-1.3); Total Protein 4.3 g/dl (6.3-8.2)
--- NOTE | 2024-05-16 12:46 | W.PN.GS2 ---
Today's Communication / Plan
-
Full liquids
Assessment / Plan
-
83F with SBO at distal ileum 2/2 malignancy with imaging findings suspicious for hepatic and pulmonary mets now POD #8 lap assisted ileocecectomy with ileocolonic anastomosis
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
Afebrile >24h, VSS
Last Fever was 05/14 at 1649: Work up with neg UA, CXR with ?PNA but not convincing
CT with fluid collection on 05/15 PPD #1 IR drainage with some gelatinous fluid and serous fluid removed: Drain with serous fluid currently. Cx pending
Passing BMs and flatus. No nausea. Contrast into colon on imaging yesterday. Some residual abd distention noted on exam.
Plan:
Full liquid diet
OOB/Ambulate. PT following
IS while awake
Multimodal analgesics as needed
ID following for abx management.
Cont Lovenox 40mg sq for VTE ppx, scd's while in bed
Subjective Data
-
Date of Service: May 16, 2024
Patient seen and examined at bedside with Dr. Perry. Doing word finding puzzle and oob to chair. Had a BM this am with flatus. Denies n/v. No complaints of pain today.
Objective Data
-
Intake and Output
05/15/24 05/16/24 05/17/24
06:59 06:59 06:59
Intake Total 880 / 880 2410 / 2410
Output Total 40 / 40
Balance 880 / 880 2370 / 2370
Intake:
Oral fluids 880 / 880 1230 / 1230
IV fluids (Total) 840 / 840
IV piggybacks 340 / 340
Output:
Drain Output (Total) 40 / 40
Right Lower Abdomen Fritz- 40 / 40
[place] Placed in IR
Other:
Number of approximated SMALL 1
amounts of urine
Number of approximated MODERATE 1 2
amounts of urine
Number of approximated LARGE 1
amounts of urine
How many times incontinent 2 2
MODERATE amount urine
How many times incontinent 1
SATURATED amount urine
Vital Signs
Temp Pulse Resp BP Pulse Ox
97.6 F 71 18 123/42 99
05/16/24 11:00 05/16/24 07:00 05/16/24 07:00 05/16/24 07:00 05/16/24 07:00
Lab Results
05/16/24 06:54
05/16/24 06:54
Calcium 8.0 mg/dl (8.4-10.2) L 05/16/24 06:54
Phosphorus 3.5 mg/dl (2.5-4.5) 05/16/24 06:54
Magnesium 1.7 mg/dl (1.6-2.3) 05/16/24 06:54
Total Bilirubin 0.4 mg/dl (0.2-1.3) 05/16/24 06:54
Direct Bilirubin 0.2 mg/dl (0.0-0.4) 05/16/24 06:54
AST 15 U/L (14-36) 05/16/24 06:54
ALT 10 U/L (0-35) 05/16/24 06:54
Alkaline Phosphatase 92 U/L (38-126) 05/16/24 06:54
Total Protein 4.3 g/dl (6.3-8.2) L D 05/16/24 06:54
Albumin 2.0 g/dl (3.5-5.0) L 05/16/24 06:54
Physical Exam
-
NAD AAO
ABD: softly distended, incisional tenderness, solar photovoltaic installer
incisions with intact glue dressings, IR drain with serous fluid
[2024-05-16 12:49] LABS: Glucose - Point of Care 116 mg/dl (70-99)
[2024-05-16] MEDS: DILAUDID 0.5 MG IV (14:12)
[2024-05-16 14:32] VITALS: BP 131/45; PULSE 66; O2SAT 83
[2024-05-16 15:00] VITALS: BP 148/54
[2024-05-16 16:19] LABS: Glucose - Point of Care 93 mg/dl (70-99)
[2024-05-16] MEDS: LOVENOX 40 MG SC (16:44)
[2024-05-16 21:31] LABS: Glucose - Point of Care 138 mg/dl (70-99)
[2024-05-16 23:37] VITALS: BP 123/77
[2024-05-17] MEDS: UNASYN IV ×4 (05:27→21:49)
[2024-05-17 05:40] VITALS: BMI 33.4
[2024-05-17 06:00] VITALS: BMI 33.4
[2024-05-17 07:00] VITALS: BP 152/70
[2024-05-17 07:31] LABS: Hematocrit 29.1 % (37.0-47.0); Hemoglobin 9.3 g/dL (12.0-16.0); Mean Corpuscular Hgb 28.6 pg (27.0-31.0); Mean Corpuscular Volume 89.5 fL (81.0-99.0); Mean Platelet Volume 10.2 fL (7.4-10.4); Platelet Count 341 10^3/uL (130-400); Red Blood Cell Count 3.25 10^6/uL (4.20-5.40); Red Cell Dist. Width 15.7 % (11.5-14.5); White Blood Cell Count 10.5 10^3/uL (4.8-10.8)
--- NOTE | 2024-05-17 07:52 | W.PN.HOSP.TC ---
Today's Communication/Plan
-
cont abx as per ID
wean O2 supplementation as tolerated, home oxygen assessment tomorrow
PT/OT
Pain Control
Diet as per Surgery
Assessment / Plan
Assessment / Plan
Physical
General: NAD, sitting up comfortably in chair
HEENT: Scleral anicteric Moist mucous membranes
Neck: No JVD
Resp: CTA bilateral on nasal cannula supplementation
Cardio: Normal S1-S2 no murmurs
Abd: Soft nontender nondistended bowel sounds active
Ext: No peripheral pitting edema
Neuro: AAOx3
Impression:
Patient is an 83y F with PMH significant for HTN and DM-II who presents to ED complaining of abdominal pain and N/V.
SBO with concern for malignant obstruction
Other conditions:
Benign hypertension
Diabetes type 2 NIDDM.
Suspect cognitive dysfunction.
Plan:
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
CT scan suggest soft tissue lesion at site of transition, lymphadenopathy, hepatic and pulmonary metastasis
Interventional radiology consultation for liver biopsy
CEA 24
Status post liver mass biopsy on 05/06
s/p laparoscopic assisted ileocolectomy with ileocolonic anastomosis in the setting of malignant bowel obstruction. Tolerated procedure well.
surgery eval appreciated advanced to Low residue soft bite sized.
Oncology eval appreciated stage IV colorectal ca, recommended oupt follow up for possible palliative systemic therapy depending on performance status and GOC
Benign Hypertension
- ARB resumed w/ holding parameters
- IV hydralazine as needed for higher BPs.
DM-II
- home metformin on hold.
- Follow glucose and cover with SSI as needed.
- A1C 6.7
Severe Iron Deficiency
Likely Anemia of Chronic disease
-IV iron supplementation once
-PO Iron supplementation started, cont
Intermittently spiking Fever with associate abd pain and shaking upper ext's started 08/07
-Mild Lactic Acidosis possibly d/t dehydration vs shaking as above since resolved with IVF bolus
-no white count elevation, once fever 100.6 resolved w/ Tylenol
-initially attributed to adverse rxn IV Iron dextrose infusion, this was ruled out when patient developed 2nd episode late afternoon 05/14 despite discontinuation
-102.5 rectally 2nd episode, Tylenol administered shaking since resolved
-Blood Cx from previous episode NGTD, Blood Cx repeated
-repeat CT abd/pelvis w/ oral contrast appreciated (was unable to get IV contrast due to poor access at time of study) imaging concerning for abscess per CRS review IR consulted percutaneous drainage performed 05/15 15 cc yellow gelatinous fluid cx
pending
-Tylenol prn, Ibuprofen if fever not resolved w/ Tylenol
-ID eval appreciated empiric cefipime metro converted to unasyn, continue
Acute Hypoxia requiring 4L to maintain saturation 90s
CXR appreciated Questionable small patchy opacity such as subsegmental atelectasis or pneumonia, less likely nodule in the right lower lung.
Incentive spirometry
On Abx as above
wean O2 supplementation as tolerated
PT/OT appreciated SNF rehab
DVT Prophylaxis: SCDs
Code Status: Full
Discussed with patient and patient's son Cuate at bedside
I spent a total of 57 minutes with the patient or on the floor. More than 50% of this time involved counseling and coordination of care.
Anticipated Discharge: 24 - 48 hours
Subjective/Interval History
-
Date of Service: May 17, 2024
No acute distress sitting up comfortably in chair. Remains on oxygen supplementation. Stable respiratory status denies sob. Denies new episodes fever or shaking. Son Cuate present during evaluation. Pain controlled at this time.
Objective Data
-
Labs:
Laboratory Results
05/17/24
06:27
WBC 10.5
Hgb 9.3 L
Hct 29.1 L
Plt Count 341 D
Sodium Pending
Potassium Pending
Chloride Pending
Carbon Dioxide Pending
BUN Pending
Creatinine Pending
Glucose Pending
Calcium Pending
Vital Signs:
Vital Signs
Temp Pulse Resp BP Pulse Ox
98.6 F 76 18 123/77 100
05/16/24 23:37 05/16/24 23:37 05/16/24 23:37 05/16/24 23:37 05/16/24 23:37
I&O
05/16/24 05/17/24 05/18/24
06:59 06:59 06:59
Intake Total 2410 / 2410 2765 / 2765
Output Total 40 / 40
Balance 2370 / 2370 2740 / 2740
[2024-05-17 08:01] LABS: Blood Urea Nitrogen 11 mg/dl (7-17); Carbon Dioxide 29 mmol/L (22-30); Chloride 104 mmol/L (98-107); Estimated Creatinine Clearance 45 ml/min; Glucose 99 mg/dl (70-99); Magnesium 1.7 mg/dl (1.6-2.3); Phosphorus 3.3 mg/dl (2.5-4.5); Potassium 3.8 mmol/L (3.5-5.1); Sodium 138 mmol/L (135-145); eGFR > 60.00
[2024-05-17 08:16] LABS: Glucose - Point of Care 108 mg/dl (70-99)
[2024-05-17] MEDS: NOVOLOG FLEXPEN-LOW RESISTANCE SC ×2 (08:54→17:21)
[2024-05-17] MEDS: NSS (PRESERVATIVE FREE) 10 ML IV (09:55)
[2024-05-17] MEDS: BENICAR 20 MG PO (09:55)
[2024-05-17] MEDS: PROTONIX IV 40 MG IV (09:55)
[2024-05-17] MEDS: LIPITOR 20 MG PO (09:55)
[2024-05-17] MEDS: FEOSOL 325 MG PO (09:55)
[2024-05-17] MEDS: DESENEX/MITRAZOL/ZEASORB 1 APPLIC TOPICAL ×2 (09:56→20:19)
--- NOTE | 2024-05-17 11:16 | W.PN.ID1 ---
Date of Service
Date of Service: May 17, 2024
Today's Communication
See below.
Assessment / Plan
Fever - resolved
Status post lap assisted ileocecectomy with ileocolonic anastomosis 05/08
SBO secondary to distal ileum malignancy
Metastatic colorectal adenocarcinoma - Stage IV
-COVID negative
-Urinalysis 05/13 -negative
-Single blood culture 05/13 -no growth to date
-Repeat blood cultures 05/15 - negative to date
-Liver, right lobe, biopsy: Metastatic colorectal adenocarcinoma
-Repeat CT abdomen/pelvis: Status post distal small bowel resection without convincing evidence for leak or abscess. Small amounts of postoperative intraperitoneal free air and small volume abdominopelvic ascites
- 05/15/24 s/p IR aspiration of 15 cc yellow somewhat gelatinous fluid
Gram stain no organism, CX: Negative to date
- Consider dc Unasyn (d4 abx) if final cx negative.
-Tumor fever is possibility.
Chief Complaint
-: Fever
Subjective / Review of Systems
Feeling better
Vital Signs / Physical Exam
Vital Signs
Vital Signs
Temp Pulse Resp BP Pulse Ox
98.3 F 76 17 152/70 97
05/17/24 07:00 05/17/24 07:00 05/17/24 07:00 05/17/24 07:00 05/17/24 07:00
Physical Exam
Constitutional: No Acute Distress
Pulmonary: Clear
Gastrointestinal: Soft, Non Tender, Distended (mild) and Other (Right MARTINEZ Drain - serous output)
Objective Data
Lab Data
Lab Results
05/17/24 06:27
05/17/24 06:27
PT 14.2 Sec (11.4-14.6) 05/05/24 08:14
INR 1.11 05/05/24 08:14
Estimated Creat Clear 45 ml/min 05/17/24 06:27
Lactic Acid 1.3 mmol/L (0.7-2.0) 05/14/24 07:27
Total Bilirubin 0.4 mg/dl (0.2-1.3) 05/16/24 06:54
AST 15 U/L (14-36) 05/16/24 06:54
ALT 10 U/L (0-35) 05/16/24 06:54
Alkaline Phosphatase 92 U/L (38-126) 05/16/24 06:54
Most recent labs reviewed.
Micro Results:
05/15/24 16:08 Wound Culture - Preliminary
Abdomen No growth
Gram Stain - Preliminary
05/13/24 19:29 Blood Culture - Preliminary
Blood/Venous No Growth in 72 hours- Final report to follow
05/14/24 17:58 Blood Culture - Preliminary
Blood/Venous No Growth in 48 hours- Final report to follow
--- NOTE | 2024-05-17 11:22 | W.PN.GS2 ---
Today's Communication / Plan
-
Advance diet
Assessment / Plan
-
83F with SBO at distal ileum 2/2 malignancy with imaging findings suspicious for hepatic and pulmonary mets now POD #9 lap assisted ileocecectomy with ileocolonic anastomosis
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
Afebrile >24h, VSS
Last Fever was 05/14 at 1649: Work up with neg UA, CXR with ?PNA but not convincing. Blood cx with NGTD
CT with fluid collection on 05/15 PPD #1 IR drainage with some gelatinous fluid and serous fluid removed: Drain with serous fluid currently. Cx pending
Good bowel function with dietarty advancements
Plan:
Advance to ADA/LRD with soft/bite sized diet as per LICENSING REPRESENTATIVE recs
OOB/Ambulate. PT following
IS while awake
Multimodal analgesics as needed
ID following for abx management. Await final cx from IR drain, NGTD
Cont Lovenox 40mg sq for VTE ppx, scd's while in bed
Subjective Data
-
Date of Service: May 17, 2024
Patient seen and examined at bedside with Dr. Perry. OOB to chair. Tolerated breakfast without n/v. Passing flatus and she notes a large amount of liquid stool. Abdominal pain is present but not severe.
Objective Data
-
Intake and Output
05/16/24 05/17/24 05/18/24
06:59 06:59 06:59
Intake Total 2410 / 2410 2765 / 2765
Output Total 40 / 40 25 / 25
Balance 2370 / 2370 2740 / 2740
Intake:
Oral fluids 1230 / 1230 1800 / 1800
IV fluids (Total) 840 / 840 700 / 700
IV piggybacks 340 / 340 260 / 260
Amount instilled into Drain ( 5
Total)
Right Lower Abdomen Fritz-
[place] Placed in IR
Output:
Drain Output (Total)
Right Lower Abdomen Fritz-
[place] Placed in IR
Other:
Number of approximated MODERATE 2 2
amounts of urine
Number of approximated LARGE 1
amounts of urine
How many times incontinent 1
SMALL amount urine
How many times incontinent 2
MODERATE amount urine
Vital Signs
Temp Pulse Resp BP Pulse Ox
98.3 F 76 17 152/70 97
05/17/24 07:00 05/17/24 07:00 05/17/24 07:00 05/17/24 07:00 05/17/24 07:00
Lab Results
05/17/24 06:27
05/17/24 06:27
Calcium 8.0 mg/dl (8.4-10.2) L 05/17/24 06:27
Phosphorus 3.3 mg/dl (2.5-4.5) 05/17/24 06:27
Magnesium 1.7 mg/dl (1.6-2.3) 05/17/24 06:27
Total Bilirubin 0.4 mg/dl (0.2-1.3) 05/16/24 06:54
Direct Bilirubin 0.2 mg/dl (0.0-0.4) 05/16/24 06:54
AST 15 U/L (14-36) 05/16/24 06:54
ALT 10 U/L (0-35) 05/16/24 06:54
Alkaline Phosphatase 92 U/L (38-126) 05/16/24 06:54
Total Protein 4.3 g/dl (6.3-8.2) L D 05/16/24 06:54
Albumin 2.0 g/dl (3.5-5.0) L 05/16/24 06:54
Physical Exam
-
NAD
ABD: soft, nd, incisional tenderness, slabber light
incisions with intact glue dressings, IR drain with serous fluid
[2024-05-17 12:36] LABS: Glucose - Point of Care 153 mg/dl (70-99)
[2024-05-17] MEDS: NOVOLOG FLEXPEN-LOW RESISTANCE 1 UNITS SC (12:36)
[2024-05-17 15:00] VITALS: BP 151/55
[2024-05-17 16:55] LABS: Glucose - Point of Care 125 mg/dl (70-99)
[2024-05-17] MEDS: LOVENOX 40 MG SC (17:44)
[2024-05-17 21:36] LABS: Glucose - Point of Care 165 mg/dl (70-99)
[2024-05-17 23:15] VITALS: BP 133/50
[2024-05-18] MEDS: UNASYN IV (04:07)
[2024-05-18 06:00] VITALS: BMI 33.5
--- NOTE | 2024-05-18 07:38 | W.PN.ID1 ---
Addendum entered and electronically signed by Vicky Palacio MD 05/18/24 14:01:
labs now available, reviewed cbc, bmp, culture - unremarkable
Addendum entered and electronically signed by Vicky Palacio MD 05/18/24 11:04:
after further thought would like a 7 day course of Augmentin, 4 more days, through 05/21
Addendum entered and electronically signed by Vicky Palacio MD 05/18/24 10:34:
I saw and evaluated the patient. I reviewed the resident�s note and agree with findings and plan as documented in the resident�s note with the following additions/corrections:
S: afebrile
diet being advanced
O: afebrile VSS
Body Fluid PMN count: 200 wbc/hpf; 90% PMNs, glucose <50
A&P
Fever - resolved
Status post lap assisted ileocecectomy with ileocolonic anastomosis 05/08
SBO secondary to distal ileum malignancy
Metastatic colorectal adenocarcinoma - Stage IV
<del>Reported</del> <del>Penicillin</del> <del>allergy</del> <del>-</del> <del>unknown</del>
-Single blood culture 05/13 -no growth to date
-Repeat blood cultures 05/15 - no growth to date
-Liver, right lobe, biopsy: Metastatic colorectal adenocarcinoma
- 05/15/24 s/p IR aspiration of 15 cc yellow somewhat gelatinous fluid
Gram stain no organism, CX: Negative to date
- Body Fluid PMN count: 200 wbc/hpf; 90% PMNs, glucose <50; borderline results, not technically at the cutoff for sbp
- would give two further days of augmentin to complete a 5 day total course
- has tolerated unasyn without ADR, patient is not allergic to penicillin - remove from [facility] and ecw; notified family/pcp.
- stable for dc from ID perspective
Original Note:
Date of Service
Date of Service: May 18, 2024
Today's Communication
Oral Abx (Augmentin)
Assessment / Plan
Fever - resolved
Status post lap assisted ileocecectomy with ileocolonic anastomosis 05/08
SBO secondary to distal ileum malignancy
Metastatic colorectal adenocarcinoma - Stage IV
-COVID negative
-Urinalysis 05/13 -negative
-Single blood culture 05/13 -no growth to date
-Repeat blood cultures 05/14 - negative to date
-Liver, right lobe, biopsy: Metastatic colorectal adenocarcinoma
-Repeat CT abdomen/pelvis: Status post distal small bowel resection without convincing evidence for leak or abscess. Small amounts of postoperative intraperitoneal free air and small volume abdominopelvic ascites
- 05/15/24 s/p IR aspiration of 15 cc yellow somewhat gelatinous fluid
Gram stain no organism, CX: Negative to date
- Drain in place, 22ml, defer to Gen Surgery for drain plan
- Unasyn converted to oral therapy - Augmentin
- Tumor fever is possibility.
Chief Complaint
-: Fever
Subjective / Review of Systems
Review of Systems: No Fever and Abdominal Pain
Vital Signs / Physical Exam
Vital Signs
Vital Signs
Temp Pulse Resp BP Pulse Ox
98.7 F 78 22 133/50 93
05/17/24 23:15 05/17/24 23:15 05/17/24 23:15 05/17/24 23:15 05/17/24 23:15
Physical Exam
Constitutional: No Acute Distress and Comfortable
Cardiovascular: Regular Rate and S1/S2; Negative Murmur, Rub or Peripheral Edema
Pulmonary: Clear and Non Labored; Negative Wheezes, Rales or Rhonchi
Gastrointestinal: Tender (generalized tenderness), Distended, Decreased Bowel Sounds, No Rebound, No Guarding and Other (Abdominal incisions intact. MARTINEZ drain with serous fluid in bulb)
Neurological: Awake and Alert
Psychological: Calm
Lines: PIV (left wrist, nontender, no swelling/erythema)
Objective Data
Lab Data
PT 14.2 Sec (11.4-14.6) 05/05/24 08:14
INR 1.11 05/05/24 08:14
Estimated Creat Clear 45 ml/min 05/17/24 06:27
Lactic Acid 1.3 mmol/L (0.7-2.0) 05/14/24 07:27
Total Bilirubin 0.4 mg/dl (0.2-1.3) 05/16/24 06:54
AST 15 U/L (14-36) 05/16/24 06:54
ALT 10 U/L (0-35) 05/16/24 06:54
Alkaline Phosphatase 92 U/L (38-126) 05/16/24 06:54
Most recent labs reviewed.
Micro Results:
05/13/24 19:29 Blood Culture - Preliminary
Blood/Venous No Growth in 4 days- Final report to follow
05/14/24 17:58 Blood Culture - Preliminary
Blood/Venous No Growth in 72 hours- Final report to follow
05/15/24 16:08 Wound Culture - Preliminary
Abdomen No growth
Gram Stain - Preliminary
[2024-05-18 07:43] LABS: Glucose - Point of Care 117 mg/dl (70-99)
[2024-05-18 08:14] VITALS: BP 122/44
[2024-05-18] MEDS: NOVOLOG FLEXPEN-LOW RESISTANCE SC ×2 (08:14→17:04)
[2024-05-18] MEDS: PROTONIX IV 40 MG IV (08:17)
[2024-05-18] MEDS: BENICAR 20 MG PO (08:17)
[2024-05-18] MEDS: LIPITOR 20 MG PO (08:17)
[2024-05-18] MEDS: FEOSOL 325 MG PO (08:17)
[2024-05-18] MEDS: DESENEX/MITRAZOL/ZEASORB 1 APPLIC TOPICAL ×2 (08:17→21:41)
[2024-05-18] MEDS: NSS (PRESERVATIVE FREE) 10 ML IV (08:17)
[2024-05-18] MEDS: FLUSH (NSS) 2 FLUSH IV (08:19)
--- NOTE | 2024-05-18 08:32 | W.PN.ONC ---
Today's Communication / Plan
-
POD#10 s/p Laparoscopic assisted ileocecectomy for obstructing cecal mass
05/07 Liver biopsy diagnostic for metastatic colorectal adenocarcinoma, NGS/molecular test pending
Pathology was reviewed with patient by LEONOR Mcdowell on 05/12
Imaging c/w liver and lung metastases
Advance diet as tolerated
await final path to review potential role for palliative systemic therapy vs. comfort care only depending on patient's GOC, performance status, and comorbidities
Impression
Impression
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 Liver biopsy diagnostic for metastatic colorectal adenocarcinoma, NGS pending, colon biospy pending
Postbiopsy right upper quadrant pain
Diabetes
Obesity
Hard of hearing, possible dementia
Subjective/Objective
Subjective/Objective
Vital Signs:
Vital Signs
Temp Pulse Resp BP Pulse Ox
98.1 F 73 18 122/44 93
05/18/24 08:14 05/18/24 08:14 05/18/24 08:14 05/18/24 08:14 05/18/24 08:14
Lab Results:
Laboratory Data
WBC 10.5 10^3/uL (4.8-10.8) 05/17/24 06:27
Hgb 9.3 g/dL (12.0-16.0) L 05/17/24 06:27
Plt Count 341 10^3/uL (130-400) D 05/17/24 06:27
PT 14.2 Sec (11.4-14.6) 05/05/24 08:14
INR 1.11 05/05/24 08:14
eGFR > 60.00 05/17/24 06:27
--- NOTE | 2024-05-18 09:51 | W.PN.GS2 ---
Addendum entered and electronically signed by Roland Gonzalez MD 05/18/24 10:42:
Patient seen and examined.
No major complaints. Abdominal pain improved. Denies nausea or vomiting. Continues to pass flatus and nonbloody stools. Afebrile.
Gen: NAD
Abd: soft, obese, minimal tenderness overlying drain site and RLQ, ND, non-peritoneal, incision c/d/i - mild erythema, no ecchymosis or drainage, IR drain with serous subtle light green output
Patient is a 83 yo F POD #10 s/p lap assisted ileocecectomy with ileocolonic anastomosis following admission for bowel obstruction in the setting of stage IV adenocarcinoma of colon primary
AFVSS
CT done given fevers with fluid collection on 8/9 s/p IR drainage with some gelatinous fluid and serous fluid removed: cx NGTD. Drain with slight green tinge to fluid today.
Good bowel function and tolerating diet
Labs for today pending
Plan:
-- Continue ADAT/LRD with soft/bite sized diet as per METALLURGICAL LABORATORY ASSISTANT recs
-- OOB/Ambulate. PT following
-- IS while awake
-- Multimodal analgesics as needed
-- ID following for abx management. Would continue abx from surgical perspective.
-- C/W MARTINEZ, will likely remain in place upon d/c
-- Cont Lovenox 40mg sq for VTE ppx, SCD's while in bed
-- Will discuss with Dr. Aggarwal re drain management and coordinate outpatient management
Original Note:
Today's Communication / Plan
-
Continue diet and MARTINEZ drain
Assessment / Plan
-
83F with SBO at distal ileum 2/2 malignancy with imaging findings suspicious for hepatic and pulmonary mets now POD #10 lap assisted ileocecectomy with ileocolonic anastomosis
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
AFVSS
CT done given fevers with fluid collection on 8/9 s/p IR drainage with some gelatinous fluid and serous fluid removed: cx NGTD. Drain with slight green tinge to fluid today.
Good bowel function and tolerating diet
Labs for today pending
Plan:
Continue ADA/LRD with soft/bite sized diet as per METALLURGICAL LABORATORY ASSISTANT recs
OOB/Ambulate. PT following
IS while awake
Multimodal analgesics as needed
ID following for abx management. Would continue abx from surgical perspective.
C/W MARTINEZ, will likely remain in place upon d/c
Cont Lovenox 40mg sq for VTE ppx, scd's while in bed
Subjective Data
-
Date of Service: May 18, 2024
Patient seen and examined at bedside with Dr. Gonzalez. Denies n/v. Tolerating diet and passing stools/flatus. Some abdominal pain still present but gradually improving.
Objective Data
-
Intake and Output
05/17/24 05/18/24 05/19/24
06:59 06:59 06:59
Intake Total 2765 / 2765 1964 / 1964
Output Total
Balance 2740 / 2740 1942
Intake:
Oral fluids 1800 / 1800 1959 / 1959
IV fluids (Total) 700 / 700
IV piggybacks 260 / 260
Amount instilled into Drain ( 5
Total)
Right Lower Abdomen Fritz-
[place] Placed in IR
Output:
Drain Output (Total)
Right Lower Abdomen Fritz-
[place] Placed in IR
Other:
Number of approximated MODERATE 2 3
amounts of urine
How many times incontinent 1
SMALL amount urine
How many times incontinent 1
MODERATE amount urine
Vital Signs
Temp Pulse Resp BP Pulse Ox
98.1 F 73 18 122/44 93
05/18/24 08:14 05/18/24 08:14 05/18/24 08:14 05/18/24 08:14 05/18/24 08:14
Calcium 8.0 mg/dl (8.4-10.2) L 05/17/24 06:27
Phosphorus 3.3 mg/dl (2.5-4.5) 05/17/24 06:27
Magnesium 1.7 mg/dl (1.6-2.3) 05/17/24 06:27
Total Bilirubin 0.4 mg/dl (0.2-1.3) 05/16/24 06:54
Direct Bilirubin 0.2 mg/dl (0.0-0.4) 05/16/24 06:54
AST 15 U/L (14-36) 05/16/24 06:54
ALT 10 U/L (0-35) 05/16/24 06:54
Alkaline Phosphatase 92 U/L (38-126) 05/16/24 06:54
Total Protein 4.3 g/dl (6.3-8.2) L D 05/16/24 06:54
Albumin 2.0 g/dl (3.5-5.0) L 05/16/24 06:54
Physical Exam
-
NAD
ABD: soft, nd, incisional tenderness, sign erector
incisions with intact glue dressings, IR drain with serous fluid with slight green tinge to fluid in the tubing
[2024-05-18] MEDS: AUGMENTIN 875 MG/125 MG 1 TABLET PO ×2 (11:17→19:30)
[2024-05-18 11:35] VITALS: BP 122/40; PULSE 80; O2SAT 91
[2024-05-18 11:38] LABS: Hematocrit 30.2 % (37.0-47.0); Hemoglobin 9.5 g/dL (12.0-16.0); Mean Corp Hgb Conc. 31.5 g/dL (33.0-37.0); Mean Corpuscular Hgb 27.9 pg (27.0-31.0); Mean Corpuscular Volume 88.8 fL (81.0-99.0); Mean Platelet Volume 9.7 fL (7.4-10.4); Platelet Count 388 10^3/uL (130-400); Red Cell Dist. Width 15.7 % (11.5-14.5); White Blood Cell Count 8.9 10^3/uL (4.8-10.8)
[2024-05-18 11:41] LABS: Glucose - Point of Care 152 mg/dl (70-99)
[2024-05-18] MEDS: NOVOLOG FLEXPEN-LOW RESISTANCE 1 UNITS SC (12:36)
[2024-05-18 12:46] LABS: Blood Urea Nitrogen 12 mg/dl (7-17); Calcium 8.2 mg/dl (8.4-10.2); Carbon Dioxide 29 mmol/L (22-30); Chloride 102 mmol/L (98-107); Estimated Creatinine Clearance 45 ml/min; Glucose 145 mg/dl (70-99); Magnesium 1.8 mg/dl (1.6-2.3); Phosphorus 2.9 mg/dl (2.5-4.5); Potassium 3.7 mmol/L (3.5-5.1); Sodium 137 mmol/L (135-145); eGFR > 60.00
--- NOTE | 2024-05-18 15:38 | W.PN.HOSP.TC ---
Addendum entered and electronically signed by Pee Beasley MD 05/18/24 15:58:
Ms. Alaniz was seen and examined
No new complaints.
NAD, resting comfortably in bed
Scleral anicteric
Moist mucous membranes
No JVD
CTA bilateral
Normal S1-S2 no murmurs
Soft nontender nondistended bowel sounds active
No peripheral pitting edema
Moves extremities spontaneously
AAOx3
SBO secondary to intra-abdominal malignancy s/p laparoscopic assisted ileocolectomy with ileocolonic anastomosis, s/p liver mass bx with biopsy showing colorectal adenocarcinoma.
Continue to follow surgery recs
advancd diet and continue low residue soft bite sized
Oncology rec pallitatiive ststemic therapy to follow up with Onc as an o utpatient
HTN contiue antihypertensives
DMII conitnue ssi, accuchecks bg 140-180. ccdiet.
Fever, concern for intrabdominal source, fluid collection post op drain, ngtd, on zosyn, ID rec transition to po augmentin
Acute hypoxia seems to be resolving as she was on room air, spot check by me showing spo2 96-97%. Check exercise pulse ox
Dispo: Home +- O2. Refusing SNF. States son lives with her.
Original Note:
Today's Communication/Plan
-
Patient to be discharged today if O2 is stable and patient can get home therapy of O2. Patient's son needs to help make the decision, awaiting communication from him. Either patient goes home or to SNF depending on patient and her son's decision.
Assessment / Plan
Assessment / Plan
Assessment:
Patient is an 83y F with PMH significant for HTN and DM-II who presented to ED complaining of abdominal pain and N/V. Patient had a small bowel obstruction due to malignancy and underwent lap assisted ileocecectomy with ileocolonic anastomosis.
Patient has been feeling better and would like to go home instead of a SNF.
Other conditions:
Benign hypertension
Diabetes type 2 NIDDM.
Suspect cognitive dysfunction.
Plan:
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
-Patient diagnosed with stage IV colorectal adenocarcinoma
-Patient will continue seeing Oncologist in the outpatient setting for continued palliative care.
Benign Hypertension
- Olmesartan resumed to help control her BP
- IV hydralazine PRN for higher BPs
DM-II
- home metformin on hold.
- Follow glucose and cover with SSI as needed.
- A1C 6.7
Severe Iron Deficiency
Likely Anemia of Chronic disease
-Continue with PO Iron supplementation
Intermittently spiking Fever with associate abd pain and shaking upper ext's started 05/13
-Mild Lactic Acidosis possibly d/t dehydration vs shaking as above since resolved with IVF bolus
-no white count elevation, once fever 100.6 resolved w/ Tylenol
-initially attributed to adverse rxn IV Iron dextrose infusion, this was ruled out when patient developed 2nd episode late afternoon 05/14 despite discontinuation
-102.5 rectally 2nd episode, Tylenol administered shaking since resolved
-Blood Cx from previous episode NGTD, Blood Cx repeated
-repeat CT abd/pelvis w/ oral contrast appreciated (was unable to get IV contrast due to poor access at time of study) imaging concerning for abscess per CRS review IR consulted percutaneous drainage performed 05/15 15 cc yellow gelatinous fluid cx
pending
-Tylenol prn, Ibuprofen if fever not resolved w/ Tylenol
-ID eval appreciated
-7 day course of Augmentin, 4 more days, through 05/21
-Blood/Abdomen cultures negative
Acute Hypoxia requiring 4L to maintain saturation 90s
CXR appreciated Questionable small patchy opacity such as subsegmental atelectasis or pneumonia, less likely nodule in the right lower lung.
Incentive spirometry
On Abx as above
wean O2 supplementation as tolerated
Patient evaluated for home O2 as needed
PT/OT appreciated SNF rehab or home depending on patient and her son's views
DVT Prophylaxis: SCDs
Code Status: Full
Discussed with patient, awaiting her son's word
Anticipated Discharge: Within 24 hours
Subjective/Interval History
-
Date of Service: May 18, 2024
Patient has been feeling okay, had no adverse events overnight.
Objective Data
-
Labs:
Laboratory Results
05/18/24
11:06
WBC 8.9
Hgb 9.5 L
Hct 30.2 L
Plt Count 388
Sodium 137
Potassium 3.7
Chloride 102
Carbon Dioxide 29
BUN 12
Creatinine 0.9
Glucose 145 H
Calcium 8.2 L
Vital Signs:
Vital Signs
Temp Pulse Resp BP Pulse Ox
98.1 F 73 18 122/44 93
05/18/24 08:14 05/18/24 08:14 05/18/24 08:14 05/18/24 08:14 05/18/24 08:14
I&O
05/17/24 05/18/24 05/19/24
06:59 06:59 06:59
Intake Total 2765 / 2765 1964 / 1964
Output Total
Balance 2740 / 2740 1942 / 1942
Review of Systems
-
History Source: Patient
Constitutional: Denies Fever
Respiratory: Denies Cough
Cardiac: Denies Chest Pain
Abdomen/GI: Reports Abdominal Pain; Denies Nausea, Vomiting or Diarrhea
Physical Exam
-
General: No Apparent Distress and Comfortable
Respiratory: Clear to Auscultation and Non Labored Respirations
Cardiac: Regular Rhythm and S1/S2
GI: Tender and Distended
Neuro: Awake, Alert, Oriented and AO x 3
Data Reviewed
-
CT Scan: Report Reviewed by me and Discussed with Physician
Labs: Labs Reviewed by me, Discussed with Physician and Discussed with Patient
[2024-05-18 15:39] VITALS: BP 114/46
--- NOTE | 2024-05-18 15:44 | CM ---
Case management following for discharge planning
Chart reviewed
Called pts son to discuss discharge planning - was for SNF - - requested call back
Spoke with Peyton at [facility] - will have bed tomorrow
Plan - anticipate SNF at discharge
[2024-05-18 16:56] LABS: Glucose - Point of Care 123 mg/dl (70-99)
[2024-05-18] MEDS: LOVENOX 40 MG SC (17:32)
[2024-05-18] MEDS: ULTRAM 50 MG PO (17:42)
[2024-05-18 21:12] LABS: Glucose - Point of Care 110 mg/dl (70-99)
[2024-05-18 23:13] VITALS: BP 138/47
[2024-05-19 06:00] VITALS: BMI 33.2
[2024-05-19 06:41] LABS: % Basophils 0.4 % (0-2); % Eosinophils 2.2 % (0-6); % Immature Granulocytes 0.7 % (0-0.5); % Lymphocytes 20.1 % (20.5-51.1); % Monocytes 7.7 % (1.7-9.3); % Neutrophils 68.9 % (42.2-75.2); Absolute Eosinophils 0.2 10^3/uL (0-0.7); Absolute Immature Granulocytes 0.1 10^3/uL (0-0.05); Absolute Lymphocytes 1.6 10^3/uL (1.2-3.4); Absolute Monocytes 0.6 10^3/uL (0.1-0.6); Absolute Neutrophils 5.6 10^3/uL (1.4-6.5); Hematocrit 27.3 % (37.0-47.0); Hemoglobin 8.8 g/dL (12.0-16.0); Mean Corp Hgb Conc. 32.2 g/dL (33.0-37.0); Mean Corpuscular Hgb 28.5 pg (27.0-31.0); Mean Corpuscular Volume 88.3 fL (81.0-99.0); Mean Platelet Volume 9.7 fL (7.4-10.4); Nucleated Red Blood Cells % 0 %; Platelet Count 341 10^3/uL (130-400); Red Blood Cell Count 3.09 10^6/uL (4.20-5.40); Red Cell Dist. Width 15.8 % (11.5-14.5); White Blood Cell Count 8.2 10^3/uL (4.8-10.8)
--- NOTE | 2024-05-19 07:29 | W.PN.HOSP.TC ---
Addendum entered and electronically signed by Pee Beasley MD 05/19/24 15:54:
acute hypoxic respiratory failure likely seocndary to critical illness and post op atelectasis
now off of o2.
toleatign room air well
Addendum entered and electronically signed by Pee Beasley MD 05/19/24 13:10:
Ms. Alaniz was seen and examined
No new complaints.
NAD, resting comfortably in bed
Scleral anicteric
Moist mucous membranes
No JVD
CTA bilateral
Normal S1-S2 no murmurs
Soft nontender nondistended bowel sounds active
No peripheral pitting edema
Moves extremities spontaneously
AAOx3
SBO secondary to intra-abdominal malignancy s/p laparoscopic assisted ileocolectomy with ileocolonic anastomosis, s/p liver mass bx with biopsy showing colorectal adenocarcinoma.[address]
-Evaled by surgery today
- - Concern for fecal leakage from around the tube, no evidence of sepsis.
- - Rec to monitor for now.
- - If decompensates would check start PO contrast CTAP along with Atb and bcx. With immediate surgery notification as she will likely need a an ex lap at that time.
Continue to follow surgery recs
advancd diet and continue low residue soft bite sized
Oncology rec pallitatiive ststemic therapy to follow up with Onc as an outpatient
HTN contiue antihypertensives
DMII conitnue ssi, accuchecks bg 140-180. ccdiet.
Fever, concern for intrabdominal source, fluid collection post op drain, ngtd, on zosyn, ID rec transition to po augmentin
Acute hypoxia. resolved. has been on room air.
Dispo: Refusing SNF. Wants to go home once cleared for DC
Original Note:
Today's Communication/Plan
-
Monitoring patient's MARTINEZ tube for any other evidence of a potential leak. Repletion of potassium initiated.
Assessment / Plan
Assessment / Plan
Assessment:
Patient is an 83y F with PMH significant for HTN and DM-II who presented to ED complaining of abdominal pain and N/V. Patient had a small bowel obstruction due to malignancy and underwent lap assisted ileocecectomy with ileocolonic anastomosis.
Patient has been feeling better and would like to go home instead of a SNF.
Plan:
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
-Patient diagnosed with stage IV colorectal adenocarcinoma
-Patient will continue seeing Oncologist in the outpatient setting for continued palliative care
-Continue follow surgery recommendations
-MARTINEZ Tube brown fluid, follow surgery recommendations for potential leak
Benign Hypertension
- Olmesartan resumed to help control her BP
- IV hydralazine PRN for higher BPs
DM-II
- home metformin on hold.
- Follow glucose and cover with SSI as needed.
- A1C 6.7
Hypokalemia-
- Downtrending Potassium levels (3.7 -> 3.5)
- Repletion started
Severe Iron Deficiency
Likely Anemia of Chronic disease
-Continue with PO Iron supplementation
Intermittently spiking Fever with associate abd pain and shaking upper ext's started 05/13
-Mild Lactic Acidosis possibly d/t dehydration vs shaking as above since resolved with IVF bolus
-no white count elevation, once fever 100.6 resolved w/ Tylenol
-initially attributed to adverse rxn IV Iron dextrose infusion, this was ruled out when patient developed 2nd episode late afternoon 05/14 despite discontinuation
-102.5 rectally 2nd episode, Tylenol administered shaking since resolved
-Blood Cx from previous episode NGTD, Blood Cx repeated
-repeat CT abd/pelvis w/ oral contrast appreciated (was unable to get IV contrast due to poor access at time of study) imaging concerning for abscess per CRS review IR consulted percutaneous drainage performed 05/15 15 cc yellow gelatinous fluid cx
pending
-Tylenol prn, Ibuprofen if fever not resolved w/ Tylenol
-ID eval appreciated
-Blood/Abdomen cultures negative
-7 day course of Augmentin, 3 more days, through 05/21
Acute Hypoxia
CXR appreciated Questionable small patchy opacity such as subsegmental atelectasis or pneumonia, less likely nodule in the right lower lung.
On Abx as above
wean O2 supplementation as tolerated
Patient evaluated for home O2 as needed
Resolving, on RA
Exercise pulse ox (91%)
PT/OT appreciated SNF rehab or home depending on patient and her son's views
DVT Prophylaxis: SCDs
Code Status: Full
Discussed with patient, awaiting her son's word
Anticipated Discharge: Within 24 hours
Anticipated Discharge: Within 24 hours
Subjective/Interval History
-
Date of Service: May 19, 2024
Patient complained of some left knee pain but no other complaints overnight.
Objective Data
-
Labs:
Laboratory Results
05/19/24
06:32
WBC 8.2
Hgb 8.8 L
Hct 27.3 L
Plt Count 341
Sodium Pending
Potassium Pending
Chloride Pending
Carbon Dioxide Pending
BUN Pending
Creatinine Pending
Glucose Pending
Calcium Pending
Total Bilirubin Pending
AST Pending
ALT Pending
Alkaline Phosphatase Pending
Vital Signs:
Vital Signs
Temp Pulse Resp BP Pulse Ox
98.0 F 79 16 138/47 93
05/18/24 23:13 05/18/24 23:13 05/18/24 23:13 05/18/24 23:13 05/18/24 23:13
I&O
05/18/24 05/19/24 05/20/24
06:59 06:59 06:59
Intake Total 1965 / 1965 305 / 305 240 / 240
Output Total 100 / 100 50 / 50
Balance 1943 / 1942 205 / 205 190 / 190
Review of Systems
-
History Source: Patient
Constitutional: Denies Fever, Weight Loss or Fatigue
Respiratory: Denies Cough or Trouble Breathing
Cardiac: Denies Chest Pain or Palpitations
Abdomen/GI: Reports Abdominal Pain
Musculoskeletal: Reports Joint Pain
Neuro: Denies Headache or Weakness
Physical Exam
-
General: No Apparent Distress and Comfortable
Respiratory: Clear to Auscultation and Non Labored Respirations
Cardiac: Regular Rhythm and S1/S2
GI: Soft, Nontender, Nondistended and Other (MARTINEZ Tube brown fluid)
Musculoskeletal: No Clubbing, No Cyanosis and No Edema
Skin: Warm and Dry
Neuro: Awake, Alert, Oriented and AO x 3
Psych: Calm
Data Reviewed
-
Labs: Labs Reviewed by me, Discussed with Physician and Discussed with Patient
[2024-05-19 07:38] LABS: ALT (SGPT) < 10 U/L (0-35); AST (SGOT) 19 U/L (14-36); Albumin 2.2 g/dl (3.5-5.0); Alkaline Phosphatase 97 U/L (38-126); Blood Urea Nitrogen 15 mg/dl (7-17); Carbon Dioxide 30 mmol/L (22-30); Chloride 104 mmol/L (98-107); Estimated Creatinine Clearance 40 ml/min; Glucose 99 mg/dl (70-99); Potassium 3.5 mmol/L (3.5-5.1); Sodium 136 mmol/L (135-145); Total Bilirubin 0.3 mg/dl (0.2-1.3); Total Protein 4.6 g/dl (6.3-8.2); eGFR 55.55
[2024-05-19 07:47] VITALS: BP 105/38
[2024-05-19 07:56] LABS: Glucose - Point of Care 95 mg/dl (70-99)
[2024-05-19] MEDS: NOVOLOG FLEXPEN-LOW RESISTANCE SC ×2 (08:17→16:58)
[2024-05-19] MEDS: BENICAR PO ×2 (08:28→08:30)
[2024-05-19] MEDS: LIPITOR 20 MG PO (08:28)
[2024-05-19] MEDS: PROTONIX 40 MG PO (08:28)
[2024-05-19] MEDS: FEOSOL 325 MG PO (08:28)
[2024-05-19] MEDS: DESENEX/MITRAZOL/ZEASORB 1 APPLIC TOPICAL ×2 (08:28→19:39)
[2024-05-19] MEDS: AUGMENTIN 875 MG/125 MG 1 TABLET PO ×2 (08:28→19:55)
--- NOTE | 2024-05-19 09:04 | W.PN.GS2 ---
Today's Communication / Plan
-
-- Continue with soft bite sized diet
-- Monitor drain outputs closely
Assessment / Plan
-
83F with SBO at distal ileum 2/2 malignancy with imaging findings suspicious for hepatic and pulmonary mets now POD #11 lap assisted ileocecectomy with ileocolonic anastomosis
Liver bx: Adenocarcinoma of colon primary
Surgical pathology: Invasive adenocarcinoma pT4, pT2a, pM1a, invading into visceral peritoneum and adjacent bowel loops, tumor deposits within the mesentery, lymphovascular and perineural invasion, LN (01/22), proximal and distal margins negative
AFVSS
CT done given fevers with fluid collection on 05/15 s/p IR drainage with some gelatinous fluid and serous fluid removed: cx NGTD. Drain with feculent output, increasing volume
Complex clinical scenario with anastomotic leak in the setting of a elderly patient with comorbidities and metastatic colon cancer. Options for management at this time include repeat surgical management with diverting loop ileostomy. Advantages
include that this is likely to result in the quickest healing of her leak and more timely way of getting to chemotherapy. Disadvantages include management of an ileostomy and an elderly lady with potential dehydration, electrolyte abnormalities,
and goals of care. Alternative option includes limited oral intake with potential need for NPO and TPN. Advantages include potential nonsurgical healing of her anastomotic leak and avoidance of an ostomy. Disadvantages include lack of healing
with persistent fistula (somewhat increased potential given the setting of malignancy) and TPN/CVL complications. Lastly an option of focusing on comfort care with continued oral intake and no attempts at medically healing her leak which has an
increased risk of fistulization as compared to that mentioned previously.
Plan at this time for continued oral intake and monitoring of drain output volumes. Volumes from her drain while eating will help with discussions and decision making as mentioned above.
Plan:
-- Continue with soft bite sized diet
-- Monitor drain outputs closely
-- OOB/Ambulate. PT following
-- IS while awake
-- Multimodal analgesics as needed
-- ID following for abx management. Would continue abx from surgical perspective.
-- DVT: Lovenox 40mg sq for VTE ppx, SCDs while in bed
Subjective Data
-
Date of Service: May 19, 2024
No major complaints. Continues to report some suprapubic and RLQ abdominal discomfort. No nausea or vomiting. No fevers. Continues to pass flatus and nonbloody stools.
Objective Data
-
Intake and Output
05/18/24 05/19/24 05/20/24
06:59 06:59 06:59
Intake Total 1964 / 1964 305 / 305 240 / 240
Output Total 100 / 100 50 / 50
Balance 1943 / 1942 205 / 205 190 / 190
Intake:
Oral fluids 1959 / 1959 300 / 300 240 / 240
Amount instilled into Drain ( / 5 / 5
Total)
Right Lower Abdomen Fritz- 5 / 5 5
[place] Placed in IR
Output:
Drain Output (Total) 100 / 100 50 / 50
Right Lower Abdomen Fritz- 100 / 100 50 / 50
[place] Placed in IR
Other:
Number of approximated MODERATE 3 1
amounts of urine
Number of approximated LARGE 2 2
amounts of urine
How many times incontinent 1
MODERATE amount urine
Number of unmeasured liquid
stools
Rectum 3
Vital Signs
Temp Pulse Resp BP Pulse Ox
98.1 F 69 18 105/38 97
05/19/24 07:47 05/19/24 07:47 05/19/24 07:47 05/19/24 07:47 05/19/24 07:47
Lab Results
05/19/24 06:32
05/19/24 06:32
Calcium 8.0 mg/dl (8.4-10.2) L 05/19/24 06:32
Phosphorus 2.9 mg/dl (2.5-4.5) 05/18/24 11:06
Magnesium 1.8 mg/dl (1.6-2.3) 05/18/24 11:06
Total Bilirubin 0.3 mg/dl (0.2-1.3) 05/19/24 06:32
Direct Bilirubin 0.2 mg/dl (0.0-0.4) 05/16/24 06:54
AST 19 U/L (14-36) 05/19/24 06:32
ALT < 10 U/L (0-35) 05/19/24 06:32
Alkaline Phosphatase 97 U/L (38-126) 05/19/24 06:32
Total Protein 4.6 g/dl (6.3-8.2) L 05/19/24 06:32
Albumin 2.2 g/dl (3.5-5.0) L 05/19/24 06:32
Physical Exam
-
Gen: NAD
Abd: soft, tender to palpation in RLQ, obese, non-peritoneal, incisions c/d/i - reactive erythema, no ecchymosis or drainage, MARTINEZ with bilious feculent output
--- NOTE | 2024-05-19 09:07 | PN.CDI ---
CDI
- -
CDI:
Physician Documentation Request
Admit Date: 05/05/24 02:26
Dear Doctor Ramos,
Please review the following and provide your response in the progress notes.
Clinical Indicators:
Pt admitted with SBO 2/2 to colon malignancy s/p resection on 05/08
Progress note 05/08 , ' desaturating to 80s on room air, requiring 2L NC supplementation to maintain saturation 90s. ...'
Progress note 05/17& 05/18 ,' Acute Hypoxia requiring 4L to maintain saturation 90s..CXR appreciated Questionable small patchy opacity such as subsegmental atelectasis or pneumonia, less likely nodule in the right lower lung.Incentive spirometry...'
05/09/24
00:34 05/09/24
17:00 05/09/24
19:53
Resp Rate 25 31
Nasal Cannula flow liters per minute 2
05/09/24
21:00 05/11/24
15:30 05/13/24
18:22
Pulse 103
Resp Rate 24
Nasal Cannula flow liters per minute 2
05/14/24
16:41 05/15/24
07:00 05/15/24
20:35
Pulse 118
Nasal Cannula flow liters per minute 2 4 4
05/16/24
23:37 05/17/24
08:00
Nasal Cannula flow liters per minute 4 4
Clarify which of the following accurately represents the patient's respiratory status following surgery:
Acute pulmonary insufficiency (following surgery)
Hypoxia-only
Other
Additional information for Pulmonary Insufficiency:
Consider when patients require termite treater oxygen therapy postoperatively
Weaned off oxygen initially then requiring supplemental oxygen
No other definitive diagnosis to support the need for oxygen (COPD exac, CHF etc.)
Unable to wean from vent
When criteria for respiratory failure not present
May extend stay or require additional resources; may need home O2
Use of terms such as suspected, likely, concern for, or probable (associated with a specific diagnosis that is being evaluated, monitored, or treated as if it exists) are acceptable and can be coded in the inpatient setting, when documented at the
time of discharge.
Thank you,
Litzy Montes RN
CDI Specialist
[place] [facility]
Please use your independent medical judgment in providing your response.
--- NOTE | 2024-05-19 09:35 | PN.CDI ---
CDI
- -
CDI:
Physician Documentation Request
Admit Date: 05/05/24 02:26
Dear Doctor Ramos,
Please review the following and provide your response in the progress notes.
Clinical Indicators:
Pt admitted with SBO / to colon malignancy s/p resection on 05/08
Documented throughout the record, ' Severe Iron Deficiency Likely Anemia of Chronic disease Continue with PO Iron supplementation...'
Trended HGB below/S/P surgery 05/08
05/04/24 05/05/24 05/06/24
17:37 05:03 08:01
Hgb 13.2 12.4 10.8 L
05/09/24 05/12/24 05/13/24
05:47 08:16 19:29
Hgb 12.0 9.9 L 10.6 L
05/15/24 05/16/24 05/19/24
07:31 06:54 06:32
Hgb 9.5 L 8.2 L 8.8 L
Based on the above, could you clarify, in your progress note, which of the following is the most likely type of anemia you are evaluating, monitoring and/or treating?
Acute blood loss anemia with baseline chronic Iron deficiency Anemia
Chronic iron deficiency anemia only
Other ( please specify)
Use of terms such as suspected, likely, concern for, or probable (associated with a specific diagnosis that is being evaluated, monitored, or treated as if it exists) are acceptable and can be coded in the inpatient setting, when documented at the
time of discharge.
Thank you,
Litzy Montes RN
CDI Specialist
[place] [facility]
Please use your independent medical judgment in providing your response.
--- NOTE | 2024-05-19 09:39 | PN.CDI ---
CDI
- -
CDI:
Physician Documentation Request
Admit Date: 05/05/24 02:26
Dear Doctor Alessia,
Please review the following and provide your response in the progress notes.
Clinical Indicators:
Pt admitted with SBO 2/2 to colon malignancy s/p resection on 05/[address] 05/15, ' 1. Status post distal small bowel resection without convincing evidence for leak or abscess. 2. Small amounts of postoperative intraperitoneal free air and small volume abdominopelvic ascites...'
Progress note 05/15, ' Febrile to 102.7 last night,...Tenderness to suprapubic area Mild leukocytosis today..'
Update note 05/15, ' post op fluid collection noted around region of anastomosis. small bubble or 2 of air in region....recommended IR drainage of fluid collection as potential infectious source for recent fever and todays leukocytosis....'
ID progress note 05/18,' Body Fluid PMN count: 200 wbc/hpf; 90% PMNs, glucose <50; borderline results, not technically at the cutoff for sbp would give two further days of augmentin to complete a 5 day total course...after further thought would
like a 7 day course of Augmentin, 4 more days, through 05/21....'
05/18 general surgery progress note, ' CT done given fevers with fluid collection on 05/15 s/p IR drainage with some gelatinous fluid and serous fluid removed: cx NGTD. Drain with slight green tinge to fluid today...ID following for abx management.
Would continue abx from surgical perspective....'
Please provide a suspected diagnosis for the above findings/treatment ( Augmentin) /CT findings:
Spontaneous Bacterial Peritonitis
Spontaneous Bacterial Peritonitis/ Peritoneal abscess
Other ( please specify)
Use of terms such as suspected, likely, concern for, or probable (associated with a specific diagnosis that is being evaluated, monitored, or treated as if it exists) are acceptable and can be coded in the inpatient setting, when documented at the
time of discharge.
Thank you,
Litzy Montes RN
CDI Specialist
[place] [facility]
Please use your independent medical judgment in providing your response.
--- NOTE | 2024-05-19 09:58 | PN.CDI ---
CDI
- -
CDI:
Physician Documentation Request
Admit Date: 05/05/24 02:26
Dear Doctor Ramos,
Please review the following and provide your response in the progress notes.
Clinical Indicators:
Pt admitted with SBO 2/2 to colon malignancy s/p resection on 05/08
Progress note 05/08 , ' desaturating to 80s on room air, requiring 2L NC supplementation to maintain saturation 90s. ...'
Progress note 05/17& 05/18 ,' Acute Hypoxia requiring 4L to maintain saturation 90s..CXR appreciated Questionable small patchy opacity such as subsegmental atelectasis or pneumonia, less likely nodule in the right lower lung.Incentive spirometry...'
Progress note 05/18, ' Patient to be discharged today if O2 is stable and patient can get home therapy of O2...'
05/09/24
00:34 05/09/24
17:00 05/09/24
19:53
Resp Rate 25 31
Nasal Cannula flow liters per minute 2
05/09/24
21:00 05/11/24
15:30 05/13/24
18:22
Pulse 103
Resp Rate 24
Nasal Cannula flow liters per minute 2
05/14/24
16:41 05/15/24
07:00 05/15/24
20:35
Pulse 118
Nasal Cannula flow liters per minute 2 4 4
05/16/24
23:37 05/17/24
08:00
Nasal Cannula flow liters per minute 4 4
Clarify which of the following accurately represents the patient's respiratory status following surgery:
Acute pulmonary insufficiency (following surgery)
Hypoxia-only
Other
Additional information for Pulmonary Insufficiency:
Consider when patients require chcf oxygen therapy postoperatively
Weaned off oxygen initially then requiring supplemental oxygen
No other definitive diagnosis to support the need for oxygen (COPD exac, CHF etc.)
Unable to wean from vent
When criteria for respiratory failure not present
May extend stay or require additional resources; may need home O2
Use of terms such as suspected, likely, concern for, or probable (associated with a specific diagnosis that is being evaluated, monitored, or treated as if it exists) are acceptable and can be coded in the inpatient setting, when documented at the
time of discharge.
Thank you,
Litzy Montes RN
CDI Specialist
[place] [facility]
Please use your independent medical judgment in providing your response.
Please use your independent medical judgment in providing your response.
[2024-05-19 11:39] LABS: Glucose - Point of Care 174 mg/dl (70-99)
--- NOTE | 2024-05-19 12:02 | CM ---
Case management following for discharge planning
Spoke with pts son Aureliano for d/c planning
Son reports he feels [facility] would benefit his mother when medically ready - 'help her get stronger'
Accepted at [facility]
Plan - transfer to [facility] when medically stable
[2024-05-19] MEDS: KCL 40 MEQ PO (12:52)
[2024-05-19] MEDS: NOVOLOG FLEXPEN-LOW RESISTANCE 1 UNITS SC (12:53)
[2024-05-19 16:40] VITALS: BP 139/93
[2024-05-19 16:46] LABS: Glucose - Point of Care 120 mg/dl (70-99)
[2024-05-19] MEDS: LOVENOX 40 MG SC (16:59)
--- NOTE | 2024-05-19 17:08 | W.PN.ID1 ---
Date of Service
Date of Service: May 19, 2024
Today's Communication
- feel that oncology reassessment would assist with goals of care, hospice might be considered
Assessment / Plan
Fever - resolved
Status post lap assisted ileocecectomy with ileocolonic anastomosis 05/08
SBO secondary to distal ileum malignancy
Metastatic colorectal adenocarcinoma - Stage IV
- now with feculent output in the drain
- continue augmentin to complete 7 day total course
- feel that oncology reassessment would assist with goals of care, hospice might be considered
Chief Complaint
-: Fever
Subjective / Review of Systems
now with feculent drainage in the drain
Vital Signs / Physical Exam
Vital Signs
Vital Signs
Temp Pulse Resp BP Pulse Ox
97.8 F 65 16 139/93 97
05/19/24 16:40 05/19/24 16:40 05/19/24 16:40 05/19/24 16:40 05/19/24 16:40
Physical Exam
Constitutional: No Acute Distress and Chronically Ill
Cardiovascular: Regular Rate and S1/S2; Negative Murmur or Rub
Pulmonary: Clear and Symmetric; Negative Wheezes or Rales
Gastrointestinal: Soft, Non Tender, Non Distended and Normal Bowel Sounds
Skin: Warm and Dry; Negative Rash or Jaundice
Objective Data
Lab Data
Lab Results
05/19/24 06:32
05/19/24 06:32
PT 14.2 Sec (11.4-14.6) 05/05/24 08:14
INR 1.11 05/05/24 08:14
Estimated Creat Clear 40 ml/min 05/19/24 06:32
Lactic Acid 1.3 mmol/L (0.7-2.0) 05/14/24 07:27
Total Bilirubin 0.3 mg/dl (0.2-1.3) 05/19/24 06:32
AST 19 U/L (14-36) 05/19/24 06:32
ALT < 10 U/L (0-35) 05/19/24 06:32
Alkaline Phosphatase 97 U/L (38-126) 05/19/24 06:32
Most recent labs reviewed.
Micro Results:
05/13/24 19:29 Blood Culture - Final
Blood/Venous No Growth - Final Report
05/14/24 17:58 Blood Culture - Preliminary
Blood/Venous No Growth in 4 days- Final report to follow
05/15/24 16:08 Wound Culture - Final
Abdomen No growth
Gram Stain - Final
[2024-05-19] MEDS: ULTRAM 50 MG PO (17:47)
[2024-05-19 21:32] LABS: Glucose - Point of Care 135 mg/dl (70-99)
[2024-05-19 23:55] VITALS: BP 142/56
[2024-05-20 06:28] LABS: Hematocrit 27.3 % (37.0-47.0); Hemoglobin 8.7 g/dL (12.0-16.0); Mean Corp Hgb Conc. 31.9 g/dL (33.0-37.0); Mean Corpuscular Hgb 28.5 pg (27.0-31.0); Mean Corpuscular Volume 89.5 fL (81.0-99.0); Mean Platelet Volume 9.9 fL (7.4-10.4); Platelet Count 353 10^3/uL (130-400); Red Blood Cell Count 3.05 10^6/uL (4.20-5.40); Red Cell Dist. Width 15.5 % (11.5-14.5); White Blood Cell Count 8.9 10^3/uL (4.8-10.8)
[2024-05-20 07:30] VITALS: BP 133/49
--- NOTE | 2024-05-20 07:38 | W.PN.HOSP.TC ---
Addendum entered and electronically signed by Pee Beasley MD 05/20/24 14:57:
acute hypoxic respiratory failure likely seocndary to critical illness and post op atelectasis
now off of o2.
toleatign room air well
she is s/p laparoscopic assisted ileocolectomy with ileocolonic anastomosis, s/p liver mass bx with biopsy showing colorectal adenocarcinoma. gill drain remains in place now with evidence of fecal leak from around the tube.
at this time surgery has recommened to monitor for now as she is high risk for surgery.
son to have [facility] discussion.
likely will go towards hospice
Original Note:
Today's Communication/Plan
-
Patient will be discussing hospice and her other options with her son today. Continue monitoring GILL drain for fluid.
Assessment / Plan
Assessment / Plan
Assessment:
Patient is an 83y F with PMH significant for HTN and DM-II who presented to ED complaining of abdominal pain and N/V. Patient had a small bowel obstruction due to malignancy and underwent lap assisted ileocecectomy with ileocolonic anastomosis.
Patient has been feeling better and would like to go home instead of a SNF. Patient has been forgetful about her hospital stay and not fully aware of her current medical condition. Patient will be discussing with her son later regarding hospice
consideration.
Plan:
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
-Patient diagnosed with stage IV colorectal adenocarcinoma
-Patient will continue seeing Oncologist in the outpatient setting for continued palliative care
-Continue follow surgery recommendations
-GILL Tube brown fluid, follow surgery recommendations for potential leak
-Anastomotic leak, repeat surgical management vs NPO and TPN vs Comfort care
-Monitor drain outputs closely, continue soft bite size diet
Benign Hypertension
- Olmesartan resumed to help control her BP
- IV hydralazine PRN for higher BPs
DM-II
- home metformin on hold.
- Follow glucose and cover with SSI as needed.
- A1C 6.7
Hypokalemia-
- Downtrending Potassium levels (3.7 -> 3.5)
- Repletion started
Severe Iron Deficiency
Likely Anemia of Chronic disease
-Continue with PO Iron supplementation
Intermittently spiking Fever with associate abd pain and shaking upper ext's started 05/13
-Mild Lactic Acidosis possibly d/t dehydration vs shaking as above since resolved with IVF bolus
-no white count elevation, once fever 100.6 resolved w/ Tylenol
-initially attributed to adverse rxn IV Iron dextrose infusion, this was ruled out when patient developed 2nd episode late afternoon 05/14 despite discontinuation
-102.5 rectally 2nd episode, Tylenol administered shaking since resolved
-Blood Cx from previous episode NGTD, Blood Cx repeated
-repeat CT abd/pelvis w/ oral contrast appreciated (was unable to get IV contrast due to poor access at time of study) imaging concerning for abscess per CRS review IR consulted percutaneous drainage performed 05/15 15 cc yellow gelatinous fluid cx
pending
-Tylenol prn, Ibuprofen if fever not resolved w/ Tylenol
-ID eval appreciated
-Blood/Abdomen cultures negative
-7 day course of Augmentin, 3 more days, through 05/21
-Per ID, Continue Augmentin, recommend oncology reassessment and hospice consideration
Acute Hypoxia
CXR appreciated Questionable small patchy opacity such as subsegmental atelectasis or pneumonia, less likely nodule in the right lower lung.
On Abx as above
wean O2 supplementation as tolerated
Patient evaluated for home O2 as needed
Resolving, on RA
Exercise pulse ox (91%)
PT/OT appreciated SNF rehab or home depending on patient and her son's views
DVT Prophylaxis: SCDs
Code Status: Full
Discussed with patient, awaiting her son's word
Anticipated Discharge: Within 24 hours
Subjective/Interval History
-
Date of Service: May 20, 2024
Patient has been feeling well, does not remember seeing me or the rest of the team yesterday.
Objective Data
-
Labs:
Laboratory Results
05/20/24
06:00
WBC 8.9
Hgb 8.7 L
Hct 27.3 L
Plt Count 353
Vital Signs:
Vital Signs
Temp Pulse Resp BP Pulse Ox
98.2 F 77 16 142/56 94
05/19/24 23:55 05/19/24 23:55 05/19/24 23:55 05/19/24 23:55 05/20/24 01:00
I&O
05/19/24 05/20/24 05/21/24
06:59 06:59 06:59
Intake Total 305 / 305 725 / 725 120 / 120
Output Total 100 / 100 90 / 90
Balance 205 / 205 635 / 635 120 / 120
Review of Systems
-
Unable to obtain full review of systems at this time due to: Dementia
History Source: Patient
Constitutional: Denies Fever, No Appetite or Fatigue
Respiratory: Denies Cough
Cardiac: Denies Chest Pain or Diaphoresis
Abdomen/GI: Reports Abdominal Pain; Denies Nausea or Vomiting
Psych: Reports Other (Agitated and some confusion)
Physical Exam
-
General: No Apparent Distress, Comfortable and Conversant
Respiratory: Clear to Auscultation and Non Labored Respirations
Cardiac: Regular Rhythm and S1/S2
GI: Soft, Nontender and Distended
Musculoskeletal: No Clubbing, No Cyanosis and No Edema
Skin: Warm and Dry
Neuro: Awake, Alert and Oriented
Psych: Agitated and Apparent Dementia
Data Reviewed
-
Labs: Labs Reviewed by me, Discussed with Physician and Discussed with Patient
[2024-05-20 08:09] LABS: Glucose - Point of Care 114 mg/dl (70-99)
[2024-05-20] MEDS: NOVOLOG FLEXPEN-LOW RESISTANCE SC ×2 (08:31→17:16)
[2024-05-20] MEDS: AUGMENTIN 875 MG/125 MG 1 TABLET PO ×2 (08:33→20:33)
[2024-05-20] MEDS: PROTONIX 40 MG PO (08:33)
[2024-05-20] MEDS: FEOSOL 325 MG PO (08:33)
[2024-05-20] MEDS: LIPITOR 20 MG PO (08:33)
[2024-05-20] MEDS: BENICAR 20 MG PO (08:33)
[2024-05-20] MEDS: DESENEX/MITRAZOL/ZEASORB 1 APPLIC TOPICAL ×2 (08:34→20:34)
--- NOTE | 2024-05-20 10:12 | W.PN.ONC2 ---
Today's Communication / Plan
-
Pt unsure if she would like to pursue add'l surgery or eventual antineoplastic therapy for her IV colon cancer. She would like to discuss further with her family. I had discussed GOC with Cuate last week and at that time goals were restorative.
However, GOC at that time were established prior to post operative compliations.
Impression
Impression
new dx metastatic colon cancer with liver and likely lung mets -Liver biopsy diagnostic for metastatic colorectal adenocarcinoma, colon biopsy invasive adenocarcinoma, 5.96cm, moderately differentiated -NGS pending
hospital course complicated by anastomotic leak s/p CT-guided drainage of intra-abdominal fluid collection
a/w Bowel obstruction
DM2
Obesity
Hard of hearing, possible dementia
Plan
Plan
hospital course complicated by anastomotic leak s/p CT-guided drainage of intra-abdominal fluid collection -management per surgery
We again discussed palliative and comfort focused options to treat at stage IV colorectal adenocarcinoma. We also reviewed that PS and nutritional status need to be optimized to be eligible for antineoplastic therapy. Pt would like to discuss
further with her son, Cuate, regarding GOC. I left message for Cuate to return my call to discuss further.
OP follow up 2-3 weeks after discharge to review NGS/molecular testing for possible palliative systemic therapy depending on performance status and GOC. Pt would benefit from palliative care service in the ambulatory setting for advance care
planning, symptom management, and continued GOC support.
Subjective/Objective
Chief Complaint
hospital course complicated by anastomotic leak s/p CT-guided drainage of intra-abdominal fluid collection
RLQ discomfort
Subjective
moving bowels, passing flatus
Hgb stable >8.5g/dL
Vital Signs:
Vital Signs
Temp Pulse Resp BP Pulse Ox
98.2 F 72 18 133/49 94
05/20/24 07:30 05/20/24 07:30 05/20/24 07:30 05/20/24 07:30 05/20/24 07:30
Lab Results:
Laboratory Data
WBC 8.9 10^3/uL (4.8-10.8) 05/20/24 06:00
Hgb 8.7 g/dL (12.0-16.0) L 05/20/24 06:00
Plt Count 353 10^3/uL (130-400) 05/20/24 06:00
PT 14.2 Sec (11.4-14.6) 05/05/24 08:14
INR 1.11 05/05/24 08:14
eGFR 55.55 05/19/24 06:32
Physical Exam
HEENT: Moist Mucous Membranes; No Jaundice
Cardiology: S1 and S2
Pulmonary: Clear
GI: Soft and Distended
Extremities: Pulses Present and Edema
Neuro: Non Focal
Review of Systems
Review of Systems
ROS notable for subjective, otherwise negative
--- NOTE | 2024-05-20 11:57 | W.PN.GS2 ---
Today's Communication / Plan
-
Cont monitoring drain, await family decision
Assessment / Plan
-
83F with SBO at distal ileum 2/2 malignancy with imaging findings suspicious for hepatic and pulmonary mets now POD #11 lap assisted ileocecectomy with ileocolonic anastomosis c/b anastomotic leak
Liver bx: Adenocarcinoma of colon primary
Surgical pathology: Invasive adenocarcinoma pT4, pT2a, pM1a, invading into visceral peritoneum and adjacent bowel loops, tumor deposits within the mesentery, lymphovascular and perineural invasion, LN (01/22), proximal and distal margins negative
AFVSS
CT done given fevers with fluid collection on 05/15 s/p IR drainage with some gelatinous fluid and serous fluid removed: cx NGTD. Drain with feculent output, increasing volume
Complex clinical scenario with anastomotic leak in the setting of a elderly patient with comorbidities and metastatic colon cancer. Options for management at this time include repeat surgical management with diverting loop ileostomy. Advantages
include that this is likely to result in the quickest healing of her leak and more timely way of getting to chemotherapy. Disadvantages include management of an ileostomy and an elderly lady with potential dehydration, electrolyte abnormalities,
and goals of care. Alternative option includes limited oral intake with potential need for NPO and TPN. Advantages include potential nonsurgical healing of her anastomotic leak and avoidance of an ostomy. Disadvantages include lack of healing
with persistent fistula (somewhat increased potential given the setting of malignancy) and TPN/CVL complications. Lastly an option of focusing on comfort care with continued oral intake and no attempts at medically healing her leak which has an
increased risk of fistulization as compared to that mentioned previously.
Plan at this time for continued oral intake and monitoring of drain output volumes. Volumes from her drain while eating will help with discussions and decision making as mentioned above. Drain volume seems to be declining.
Plan:
-- Continue with soft bite sized diet
-- Monitor drain outputs closely
-- OOB/Ambulate. PT following
-- IS while awake
-- Multimodal analgesics as needed
-- ID following for abx management. Would continue abx from surgical perspective.
-- DVT: Lovenox 40mg sq for VTE ppx, SCDs while in bed
-- Discussed with son Cuate this am, advised him to consider the options but made a recommendation for hospice
Subjective Data
-
Date of Service: May 20, 2024
AFVSS, OOBTC, leanna diet, no complaints, pleasently demented
Objective Data
-
Intake and Output
05/19/24 05/20/24 05/21/24
06:59 06:59 06:59
Intake Total 305 / 305 725 / 725 120 / 120
Output Total 100 / 100 90 / 90
Balance 205 / 205 635 / 635 120 / 120
Intake:
Oral fluids 300 / 300 720 / 720 120 / 120
Amount instilled into Drain ( 5 / 5 5 / 5
Total)
Right Lower Abdomen Fritz- 5 / 5 5 / 5
[place] Placed in IR
Output:
Drain Output (Total) 100 / 100 90 / 90
Right Lower Abdomen Fritz- 100 / 100 90 / 90
[place] Placed in IR
Other:
Number of approximated MODERATE 1
amounts of urine
Number of approximated LARGE 2 1
amounts of urine
Number of unmeasured liquid
stools
Rectum 3
Vital Signs
Temp Pulse Resp BP Pulse Ox
98.2 F 72 18 133/49 94
05/20/24 07:30 05/20/24 07:30 05/20/24 07:30 05/20/24 07:30 05/20/24 07:30
Lab Results
05/20/24 06:00
05/19/24 06:32
Calcium 8.0 mg/dl (8.4-10.2) L 05/19/24 06:32
Phosphorus 2.9 mg/dl (2.5-4.5) 05/18/24 11:06
Magnesium 1.8 mg/dl (1.6-2.3) 05/18/24 11:06
Total Bilirubin 0.3 mg/dl (0.2-1.3) 05/19/24 06:32
Direct Bilirubin 0.2 mg/dl (0.0-0.4) 05/16/24 06:54
AST 19 U/L (14-36) 05/19/24 06:32
ALT < 10 U/L (0-35) 05/19/24 06:32
Alkaline Phosphatase 97 U/L (38-126) 05/19/24 06:32
Total Protein 4.6 g/dl (6.3-8.2) L 05/19/24 06:32
Albumin 2.2 g/dl (3.5-5.0) L 05/19/24 06:32
Physical Exam
-
Gen: NAD
Abd: soft, nt, obese, drain with cardenas creamy fluid
[2024-05-20 12:10] LABS: Glucose - Point of Care 155 mg/dl (70-99)
[2024-05-20] MEDS: NOVOLOG FLEXPEN-LOW RESISTANCE 1 UNITS SC (12:41)
--- NOTE | 2024-05-20 13:51 | PTCARENOTE ---
patient aaox2, forgetful, agitated at times, has RLQ discomfort upon palpation, tolerating diet, MARTINEZ drain with cardenas creamy drainage. sitting oob in chair since breakfast, vss, will continue to monitor.
[2024-05-20 15:10] VITALS: BP 132/56
[2024-05-20 17:13] LABS: Glucose - Point of Care 112 mg/dl (70-99)
[2024-05-20] MEDS: LOVENOX 40 MG SC (17:16)
--- NOTE | 2024-05-20 19:54 | W.PN.ID1 ---
Date of Service
Date of Service: May 20, 2024
Today's Communication
recommend hospice
Assessment / Plan
Fever - resolved
Status post lap assisted ileocecectomy with ileocolonic anastomosis 05/08
SBO secondary to distal ileum malignancy
Metastatic colorectal adenocarcinoma - Stage IV
- Now with feculent output in the drain
- Continue Augmentin to complete 7 day total course through 05/21
- Goals of care discussion ongoing among family and with primary and oncology teams. From ID persepective recommend hospice.
Chief Complaint
-: Fever
Subjective / Review of Systems
afebrile
doesnt recall that events of her hospitalization
Vital Signs / Physical Exam
Vital Signs
Vital Signs
Temp Pulse Resp BP Pulse Ox
98.2 F 74 18 132/56 96
05/20/24 15:10 05/20/24 15:10 05/20/24 15:10 05/20/24 15:10 05/20/24 15:10
Physical Exam
Constitutional: No Acute Distress
Cardiovascular: Regular Rate and S1/S2; Negative Murmur or Rub
Pulmonary: Clear and Symmetric; Negative Wheezes or Rales
Gastrointestinal: Soft, Tender, Distended, Non Distended and Normal Bowel Sounds
Skin: Warm and Dry; Negative Rash or Jaundice
Lines: Other (feculent drainage in the gill drain)
Objective Data
Lab Data
Lab Results
05/20/24 06:00
05/19/24 06:32
PT 14.2 Sec (11.4-14.6) 05/05/24 08:14
INR 1.11 05/05/24 08:14
Estimated Creat Clear 40 ml/min 05/19/24 06:32
Lactic Acid 1.3 mmol/L (0.7-2.0) 05/14/24 07:27
Total Bilirubin 0.3 mg/dl (0.2-1.3) 05/19/24 06:32
AST 19 U/L (14-36) 05/19/24 06:32
ALT < 10 U/L (0-35) 05/19/24 06:32
Alkaline Phosphatase 97 U/L (38-126) 05/19/24 06:32
Most recent labs reviewed.
Micro Results:
05/14/24 17:58 Blood Culture - Final
Blood/Venous No Growth - Final Report
05/13/24 19:29 Blood Culture - Final
Blood/Venous No Growth - Final Report
05/15/24 16:08 Wound Culture - Final
Abdomen No growth
Gram Stain - Final
Care Review
Plan reviewed with: Physician (Dr Kumar - hospice)
[2024-05-20 23:07] VITALS: BP 146/65
[2024-05-21 04:05] LABS: Glucose - Point of Care 116 mg/dl (70-99)
[2024-05-21 06:00] VITALS: BMI 34.7
[2024-05-21 06:18] LABS: Hematocrit 27.1 % (37.0-47.0); Hemoglobin 8.8 g/dL (12.0-16.0); Mean Corp Hgb Conc. 32.5 g/dL (33.0-37.0); Mean Corpuscular Hgb 28.9 pg (27.0-31.0); Mean Corpuscular Volume 88.9 fL (81.0-99.0); Mean Platelet Volume 9.9 fL (7.4-10.4); Platelet Count 360 10^3/uL (130-400); Red Blood Cell Count 3.05 10^6/uL (4.20-5.40); Red Cell Dist. Width 15.9 % (11.5-14.5); White Blood Cell Count 7.6 10^3/uL (4.8-10.8)
--- NOTE | 2024-05-21 06:42 | W.PN.HOSP.TC ---
Addendum entered and electronically signed by Pee Beasley MD 05/21/24 11:45:
surgery plans on further radiographic imaging of the abd with ctap po contrast
family will make a decision on plan of care once discussed imaging findings ith surgery and if there is a potential intervention that could be performed.
Original Note:
Today's Communication/Plan
-
Awaiting goals of care discussion with son. Continue monitoring MARTINEZ drain.
Assessment / Plan
Assessment / Plan
Assessment:
Patient is an 83y F with PMH significant for HTN and DM-II who presented to ED complaining of abdominal pain and N/V. Patient had a small bowel obstruction due to malignancy and underwent lap assisted ileocecectomy with ileocolonic anastomosis.
Patient has been feeling better and would like to go home instead of a SNF. Patient has been forgetful about her hospital stay and not fully aware of her current medical condition. Still awaiting on word regarding their goals of treatment while
continuing to monitor MARTINEZ drain. No changes in her condition.
Plan:
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
-Patient diagnosed with stage IV colorectal adenocarcinoma
-Patient will continue seeing Oncologist in the outpatient setting for continued palliative care
-Continue follow surgery recommendations
-MARTINEZ Tube brown fluid, follow surgery recommendations for potential leak
-Anastomotic leak, repeat surgical management vs NPO and TPN vs Comfort care
-Monitor drain outputs closely, continue soft bite size diet
-Awating Goals of Care discussion with Son
Benign Hypertension
- Olmesartan resumed to help control her BP
- IV hydralazine PRN for higher BPs
DM-II
- home metformin on hold.
- Follow glucose and cover with SSI as needed.
- A1C 6.7
Hypokalemia-
- Downtrending Potassium levels (3.7 -> 3.5)
- Repletion started
Severe Iron Deficiency
Likely Anemia of Chronic disease
-Continue with PO Iron supplementation
Intermittently spiking Fever with associate abd pain and shaking upper ext's started 05/13
-Mild Lactic Acidosis possibly d/t dehydration vs shaking as above since resolved with IVF bolus
-no white count elevation, once fever 100.6 resolved w/ Tylenol
-initially attributed to adverse rxn IV Iron dextrose infusion, this was ruled out when patient developed 2nd episode late afternoon 05/14 despite discontinuation
-102.5 rectally 2nd episode, Tylenol administered shaking since resolved
-Blood Cx from previous episode NGTD, Blood Cx repeated
-repeat CT abd/pelvis w/ oral contrast appreciated (was unable to get IV contrast due to poor access at time of study) imaging concerning for abscess per CRS review IR consulted percutaneous drainage performed 05/15 15 cc yellow gelatinous fluid cx
pending
-Tylenol prn, Ibuprofen if fever not resolved w/ Tylenol
-ID eval appreciated
-Blood/Abdomen cultures negative
-7 day course of Augmentin, 1 more days, through 05/21
-Per ID, Continue Augmentin, recommend oncology reassessment and hospice consideration
Acute Hypoxic respiratory failure likely secondary to critical illness and post op atelectasis
CXR appreciated Questionable small patchy opacity such as subsegmental atelectasis or pneumonia, less likely nodule in the right lower lung.
On Abx as above
wean O2 supplementation as tolerated
Patient evaluated for home O2 as needed
Resolving, on RA
PT/OT appreciated SNF rehab or home depending on patient and her son's views
DVT Prophylaxis: SCDs
Code Status: Full
Discussed with patient, awaiting her son's word
Anticipated Discharge: Within 24 hours
Subjective/Interval History
-
Date of Service: May 21, 2024
Patient notes no changes from yesterday, just complaining of some abdominal tenderness. MARTINEZ drain continues to drain brown fluid. Patient does not remember talking to her son yesterday. Awaiting word about thier goals of care.
Objective Data
-
Labs:
Laboratory Results
05/21/24
05:42
WBC 7.6
Hgb 8.8 L
Hct 27.1 L
Plt Count 360
Sodium Pending
Potassium Pending
Chloride Pending
Carbon Dioxide Pending
BUN Pending
Creatinine Pending
Glucose Pending
Calcium Pending
Total Bilirubin Pending
AST Pending
ALT Pending
Alkaline Phosphatase Pending
Vital Signs:
Vital Signs
Temp Pulse Resp BP Pulse Ox
98.2 F 83 18 146/65 97
05/20/24 23:07 05/20/24 23:07 05/20/24 23:07 05/20/24 23:07 05/20/24 23:07
I&O
05/19/24 05/20/24 05/21/24
06:59 06:59 06:59
Intake Total 305 / 305 725 / 725 1080 / 1080
Output Total 100 / 100 90 / 90 30 / 30
Balance 205 / 205 635 / 635 1050 / 1050
Review of Systems
-
Unable to obtain full review of systems at this time due to: Dementia
History Source: Patient
Constitutional: Denies Fever or Fatigue
Respiratory: Denies Cough or Trouble Breathing
Cardiac: Denies Chest Pain, Diaphoresis or Palpitations
Abdomen/GI: Reports Abdominal Pain; Denies Nausea or Vomiting
Neuro: Denies Dizzy or Headache
Physical Exam
-
General: No Apparent Distress, Comfortable and Conversant
Respiratory: Clear to Auscultation and Non Labored Respirations
Cardiac: Regular Rhythm and S1/S2
GI: Soft, Tender and Distended
Musculoskeletal: No Clubbing and No Cyanosis
Skin: Warm and Dry
Neuro: Awake, Alert and Oriented
Psych: Calm and Apparent Dementia
Data Reviewed
-
Labs: Labs Reviewed by me and Discussed with Physician
[2024-05-21 06:45] LABS: ALT (SGPT) 10 U/L (0-35); AST (SGOT) 24 U/L (14-36); Albumin 2.3 g/dl (3.5-5.0); Alkaline Phosphatase 107 U/L (38-126); Blood Urea Nitrogen 13 mg/dl (7-17); Calcium 8.1 mg/dl (8.4-10.2); Carbon Dioxide 30 mmol/L (22-30); Chloride 104 mmol/L (98-107); Estimated Creatinine Clearance 45 ml/min; Glucose 106 mg/dl (70-99); Potassium 3.9 mmol/L (3.5-5.1); Sodium 136 mmol/L (135-145); Total Bilirubin 0.3 mg/dl (0.2-1.3); Total Protein 4.8 g/dl (6.3-8.2); eGFR > 60.00
--- NOTE | 2024-05-21 07:12 | W.PN.ID1 ---
Addendum entered and electronically signed by Vicky Palacio MD 05/21/24 18:14:
I saw and evaluated the patient. I reviewed the resident�s note and agree with findings and plan as documented in the resident�s note.
Final day of augmentin
Drain management per surgery
ID service will no longer actively follow this patient please recall for further questions
Original Note:
Date of Service
Date of Service: May 21, 2024
Today's Communication
Complete Augmentin course today.
Assessment / Plan
Fever - resolved
Status post lap assisted ileocecectomy with ileocolonic anastomosis 05/08
SBO secondary to distal ileum malignancy
Metastatic colorectal adenocarcinoma - Stage IV
- feculent output in the drain, 50ml
- On Augmentin. Will complete 7 day total abx course today.
- Goals of care discussion ongoing among family and with primary and oncology teams. From ID persepective recommend hospice.
Chief Complaint
-: Fever
Subjective / Review of Systems
Review of Systems: Abdominal Pain (RLQ) and No Nausea
Vital Signs / Physical Exam
Vital Signs
Vital Signs
Temp Pulse Resp BP Pulse Ox
98.2 F 83 18 146/65 97
05/20/24 23:07 05/20/24 23:07 05/20/24 23:07 05/20/24 23:07 05/20/24 23:07
Physical Exam
Constitutional: No Acute Distress, Comfortable (observed tolerating breakfast) and Other
Cardiovascular: Regular Rate, S1/S2 and Peripheral Edema (1+ bilaterally); Negative Murmur or Rub
Pulmonary: Clear and Non Labored; Negative Wheezes, Rales or Rhonchi
Gastrointestinal: Soft, Tender (RLQ), Non Distended, Normal Bowel Sounds and Other (GP drain in place, feculent output in bulb); Negative No Rebound or No Guarding
Skin: Warm and Dry
Neurological: Awake and Alert
Psychological: Calm
Lines: PIV
Objective Data
Lab Data
Lab Results
05/21/24 05:42
05/21/24 05:42
PT 14.2 Sec (11.4-14.6) 05/05/24 08:14
INR 1.11 05/05/24 08:14
Estimated Creat Clear 45 ml/min 05/21/24 05:42
Lactic Acid 1.3 mmol/L (0.7-2.0) 05/14/24 07:27
Total Bilirubin 0.3 mg/dl (0.2-1.3) 05/21/24 05:42
AST 24 U/L (14-36) 05/21/24 05:42
ALT 10 U/L (0-35) 05/21/24 05:42
Alkaline Phosphatase 107 U/L (38-126) 05/21/24 05:42
Most recent labs reviewed.
Micro Results:
05/14/24 17:58 Blood Culture - Final
Blood/Venous No Growth - Final Report
05/13/24 19:29 Blood Culture - Final
Blood/Venous No Growth - Final Report
05/15/24 16:08 Wound Culture - Final
Abdomen No growth
Gram Stain - Final
[2024-05-21 07:30] VITALS: BP 143/57
[2024-05-21] MEDS: PROTONIX 40 MG PO (07:57)
[2024-05-21] MEDS: AUGMENTIN 875 MG/125 MG 1 TABLET PO ×2 (07:57→19:41)
[2024-05-21] MEDS: BENICAR 20 MG PO (07:58)
[2024-05-21] MEDS: LIPITOR 20 MG PO (07:58)
[2024-05-21] MEDS: FEOSOL 325 MG PO (07:58)
[2024-05-21] MEDS: NOVOLOG FLEXPEN-LOW RESISTANCE SC ×2 (07:59→16:37)
[2024-05-21] MEDS: DESENEX/MITRAZOL/ZEASORB 1 APPLIC TOPICAL ×2 (07:59→19:42)
[2024-05-21 08:00] LABS: Glucose - Point of Care 86 mg/dl (70-99)
[2024-05-21] MEDS: OMNIPAQUE 50 ML PO (10:11)
[2024-05-21] MEDS: TYLENOL 1000 MG PO (10:12)
--- NOTE | 2024-05-21 10:16 | W.PN.GS2 ---
Today's Communication / Plan
-
Follow-up CT imaging
Assessment / Plan
-
83F with SBO at distal ileum 2/2 malignancy with imaging findings suspicious for hepatic and pulmonary mets now POD #12 lap assisted ileocecectomy with ileocolonic anastomosis c/b anastomotic leak
AFVSS
IR drain appears to be adequately controlling anastomotic leak clinically
--24-hour outputs diminishing particularly over the last 36 hours 100 mL-> 90 mL-> 30 mL
Plan:
-- Continue with soft bite sized diet
-- Monitor drain outputs
-- Discussed with patient and her son Cuate. we will obtain follow-up CT imaging abdomen pelvis with IV and oral contrast to assess adequacy of control of postoperative anastomotic leak which then will provide us with information regarding further
care options and recommendations.
Subjective Data
-
Date of Service: May 21, 2024
Patient seen and examined.
Reports no acute concerns or changes.
Tolerating diet without exacerbation of abdominal pain, denies nausea
Describes persistent abdominal pain/discomfort right abdomen but not worse and has been for the last few days and improved from prior to IR drain placement.
Continued bowel movements
Objective Data
-
Intake and Output
05/20/24 05/21/24 05/22/24
06:59 06:59 06:59
Intake Total 725 / 725 1080 / 1080 /
Output Total 90 / 90 30 / 30 20 / 20
Balance 635 / 635 1050 / 1050 -15 / -15
Intake:
Oral fluids 720 / 720 1080 / 1080
Amount instilled into Drain (
Total)
Right Lower Abdomen Fritz-
[place] Placed in IR
Output:
Drain Output (Total) 90 / 90 30 / 30 20 / 20
Right Lower Abdomen Fritz- 90 / 90 30 / 30 20 / 20
[place] Placed in IR
Other:
Number of approximated MODERATE 1 2
amounts of urine
Number of approximated LARGE 1 1
amounts of urine
How many times incontinent 1
MODERATE amount urine
Vital Signs
Temp Pulse Resp BP Pulse Ox
98.2 F 71 18 143/57 95
05/21/24 07:30 05/21/24 07:30 05/21/24 07:30 05/21/24 07:30 05/21/24 07:30
Lab Results
05/21/24 05:42
05/21/24 05:42
Calcium 8.1 mg/dl (8.4-10.2) L 05/21/24 05:42
Phosphorus 2.9 mg/dl (2.5-4.5) 05/18/24 11:06
Magnesium 1.8 mg/dl (1.6-2.3) 05/18/24 11:06
Total Bilirubin 0.3 mg/dl (0.2-1.3) 05/21/24 05:42
Direct Bilirubin 0.2 mg/dl (0.0-0.4) 05/16/24 06:54
AST 24 U/L (14-36) 05/21/24 05:42
ALT 10 U/L (0-35) 05/21/24 05:42
Alkaline Phosphatase 107 U/L (38-126) 05/21/24 05:42
Total Protein 4.8 g/dl (6.3-8.2) L 05/21/24 05:42
Albumin 2.3 g/dl (3.5-5.0) L 05/21/24 05:42
Physical Exam
-
NAD AAO
ABD: Soft, obese, tenderness palpation right hemiabdomen without rebound or guarding
Incisions with dressings without erythema drainage or open wounds
Right sided IR drain to bulb suction with feculent material
--- NOTE | 2024-05-21 11:06 | W.PN.ONC2 ---
Today's Communication / Plan
-
restorative goals
anastomotic leak -management per surgery
medical oncology will follow peripherally to facilitate OP follow up upon discharge - please reach out with any questions or concerns
Impression
Impression
new dx metastatic colon cancer with liver and likely lung mets -Liver biopsy diagnostic for metastatic colorectal adenocarcinoma, colon biopsy invasive adenocarcinoma, 5.96cm, moderately differentiated -NGS pending
hospital course complicated by anastomotic leak s/p CT-guided drainage of intra-abdominal fluid collection
a/w Bowel obstruction
DM2
Obesity
Hard of hearing, possible dementia
Plan
Plan
hospital course complicated by anastomotic leak s/p CT-guided drainage of intra-abdominal fluid collection -management per surgery
We again discussed palliative and comfort focused options to treat at stage IV colorectal adenocarcinoma. I was able to reach Cuate today, to re-discuss diagnosis, post operative compilations, that PS/nutritional status need to improve, as well as,
Rachael will need to recover from any surgical procedures in order to proceed with any systemic antineoplastic therapy. We reviewed antineoplastic therapy has life threatening risks and side effects. Goals remain restorative.
OP follow up 2-3 weeks after discharge to review NGS/molecular testing for possible palliative systemic therapy depending on performance status and GOC. Pt would benefit from palliative care service in the ambulatory setting for advance care
planning, symptom management, and continued GOC support.
Subjective/Objective
Chief Complaint
no new complaints
Subjective
denies pain, sob, n/v
Vital Signs:
Vital Signs
Temp Pulse Resp BP Pulse Ox
98.2 F 71 18 143/57 95
05/21/24 07:30 05/21/24 07:30 05/21/24 07:30 05/21/24 07:30 05/21/24 07:30
Lab Results:
Laboratory Data
WBC 7.6 10^3/uL (4.8-10.8) 05/21/24 05:42
Hgb 8.8 g/dL (12.0-16.0) L 05/21/24 05:42
Plt Count 360 10^3/uL (130-400) 05/21/24 05:42
PT 14.2 Sec (11.4-14.6) 05/05/24 08:14
INR 1.11 05/05/24 08:14
eGFR > 60.00 05/21/24 05:42
Physical Exam
HEENT: Moist Mucous Membranes; No Jaundice
Cardiology: S1 and S2
Pulmonary: Clear
GI: Soft and Distended
Extremities: Edema
Neuro: Non Focal
Review of Systems
Review of Systems
ROS notable for subjective otherwise negative
[2024-05-21 11:32] LABS: Glucose - Point of Care 156 mg/dl (70-99)
--- NOTE | 2024-05-21 11:49 | CM ---
Case management following for discharge planning
Spoke with pts son Aureliano to discuss d/c planning/hospice - deferred conversion to his brother Cuate
Spoke with pts son Cuate - per Cuate no decisions has been made at this time regarding hospice. Reports family prefers their mother go to [facility] for rehab when medically stable before returning home
CM offered support and son aware will be available as needed
Plan - anticipate SNF ([facility]) when medically stable
[2024-05-21] MEDS: NOVOLOG FLEXPEN-LOW RESISTANCE 1 UNITS SC (11:50)
[2024-05-21 14:35] VITALS: BP 157/57
--- NOTE | 2024-05-21 15:23 | W.PN.SURGUPD ---
Surgical Update
Surgical Update
CT imaging study reviewed. Images as well as radiologist report.
Interventional radiology drain appears in satisfactory position and with good source control of anastomotic leak. There does not appear to be any significant residual or enlarging abscess cavity or developing new collections.
Given patient's stability with IR drainage would recommend continued nonoperative management.
Output from catheter variable but has diminished a bit particularly over the last 36 hours.
Would not be surprised however if output increases a bit after administering oral contrast -will continue to monitor
If continued clinical stability would start dispo planning for discharged with IR drain catheter in place and subsequent outpatient follow-up for ongoing care and monitoring of anastomotic leak with myself
Continue diet per speech therapy recommendations
Will place on PPI for potential antisecretory effects with management of anastomotic leak
Add Metamucil for some bulking effects to see if also may improve diminished outputs if succus/stool more viscous.
[2024-05-21 15:45] VITALS: BP 137/56
[2024-05-21 16:37] LABS: Glucose - Point of Care 148 mg/dl (70-99)
[2024-05-21] MEDS: LOVENOX 40 MG SC (17:16)
[2024-05-21 21:33] LABS: Glucose - Point of Care 110 mg/dl (70-99)
[2024-05-21 23:50] VITALS: BP 137/42
[2024-05-22 05:04] LABS: Glucose - Point of Care 99 mg/dl (70-99)
[2024-05-22 06:39] LABS: Hemoglobin 8.9 g/dL (12.0-16.0); Mean Corp Hgb Conc. 31.8 g/dL (33.0-37.0); Mean Corpuscular Hgb 27.9 pg (27.0-31.0); Mean Corpuscular Volume 87.8 fL (81.0-99.0); Mean Platelet Volume 9.6 fL (7.4-10.4); Platelet Count 385 10^3/uL (130-400); Red Blood Cell Count 3.19 10^6/uL (4.20-5.40); Red Cell Dist. Width 15.9 % (11.5-14.5); White Blood Cell Count 8.4 10^3/uL (4.8-10.8)
[2024-05-22 06:56] LABS: Blood Urea Nitrogen 11 mg/dl (7-17); Calcium 8.2 mg/dl (8.4-10.2); Carbon Dioxide 30 mmol/L (22-30); Chloride 102 mmol/L (98-107); Estimated Creatinine Clearance 45 ml/min; Glucose 93 mg/dl (70-99); Potassium 3.9 mmol/L (3.5-5.1); Sodium 136 mmol/L (135-145); eGFR > 60.00
[2024-05-22 07:38] LABS: Glucose - Point of Care 94 mg/dl (70-99)
[2024-05-22 07:42] VITALS: BP 106/44
[2024-05-22] MEDS: NOVOLOG FLEXPEN-LOW RESISTANCE SC (07:55)
[2024-05-22] MEDS: FEOSOL 325 MG PO (07:56)
[2024-05-22] MEDS: METAMUCIL, KONSYL 1 PACKET PO (07:56)
[2024-05-22] MEDS: LIPITOR 20 MG PO (07:56)
[2024-05-22] MEDS: PROTONIX 40 MG PO (07:56)
[2024-05-22] MEDS: AUGMENTIN 875 MG/125 MG 1 TABLET PO (07:56)
[2024-05-22] MEDS: BENICAR 20 MG PO (07:56)
[2024-05-22] MEDS: DESENEX/MITRAZOL/ZEASORB 1 APPLIC TOPICAL (07:57)
--- NOTE | 2024-05-22 08:13 | W.PN.HOSP.TC ---
Addendum entered and electronically signed by Pee Beasley MD 05/22/24 16:33:
Interventional radiology/drain placement and output. States good approximation with a good return. Surgery is okay with this and recommend outpatient follow-up. Suspect prior surgery site increase in output from drain.
Outpatient oncology follow-up for palliative evaluation
Original Note:
Today's Communication/Plan
-
Patient to go to [facility] today. Waiting on word from case management.
Assessment / Plan
Assessment / Plan
Assessment:
Patient is an 83y F with PMH significant for HTN and DM-II who presented to ED complaining of abdominal pain and N/V. Patient had a small bowel obstruction due to malignancy and underwent lap assisted ileocecectomy with ileocolonic anastomosis.
Patient has been feeling better and would like to go home instead of a SNF. Patient has been forgetful about her hospital stay and not fully aware of her current medical condition. Still awaiting on word regarding their goals of treatment while
continuing to monitor MARTINEZ drain. No changes in her condition. Patient most likely going to SNF today.
Plan:
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
-Patient diagnosed with stage IV colorectal adenocarcinoma
-Patient will continue seeing Oncologist in the outpatient setting for continued palliative care
-Continue follow surgery recommendations
-MARTINEZ Tube brown fluid, follow surgery recommendations for potential leak
-Anastomotic leak, repeat surgical management vs NPO and TPN vs Comfort care
-Monitor drain outputs closely, continue soft bite size diet
-Son wants patient to go to SNF
-CT abdomen- drain appears in satisfactory position with good source control of anastomotic leak. No residual or enlarging abscess cavity or developing new collections.
-As per surgery, IR drain to continue with non-operative management recommended.
-Follow up with surgery in outpatient setting for continued monitoring of anastomotic leak
-Placed on PPIs (for potential antisecretory effects) and Metamucil (bulking effects)
-Medical Oncology will follow up in outpatient setting as well
Benign Hypertension
- Olmesartan resumed to help control her BP
- IV hydralazine PRN for higher BPs
DM-II
- home metformin on hold.
- Follow glucose and cover with SSI as needed.
- A1C 6.7
Hypokalemia-
- Downtrending Potassium levels (3.7 -> 3.5)
- Repletion started
Severe Iron Deficiency
Likely Anemia of Chronic disease
-Continue with PO Iron supplementation
Intermittently spiking Fever with associate abd pain and shaking upper ext's started 05/13
-Mild Lactic Acidosis possibly d/t dehydration vs shaking as above since resolved with IVF bolus
-no white count elevation, once fever 100.6 resolved w/ Tylenol
-initially attributed to adverse rxn IV Iron dextrose infusion, this was ruled out when patient developed 2nd episode late afternoon 05/14 despite discontinuation
-102.5 rectally 2nd episode, Tylenol administered shaking since resolved
-Blood Cx from previous episode NGTD, Blood Cx repeated
-repeat CT abd/pelvis w/ oral contrast appreciated (was unable to get IV contrast due to poor access at time of study) imaging concerning for abscess per CRS review IR consulted percutaneous drainage performed 05/15 15 cc yellow gelatinous fluid cx
pending
-Tylenol prn, Ibuprofen if fever not resolved w/ Tylenol
-ID eval appreciated
-Blood/Abdomen cultures negative
-Finished course of Augmentin
-Resolved
Acute Hypoxic respiratory failure likely secondary to critical illness and post op atelectasis
CXR appreciated Questionable small patchy opacity such as subsegmental atelectasis or pneumonia, less likely nodule in the right lower lung.
On Abx as above
wean O2 supplementation as tolerated
Patient evaluated for home O2 as needed
Resolving, on RA
PT/OT appreciated SNF rehab based on patient and her son's views
DVT Prophylaxis: SCDs
Code Status: Full
Discussed with patient, awaiting her son's word
Anticipated Discharge: Today
Subjective/Interval History
-
Date of Service: May 22, 2024
Patient has been feeling okay, no adverse events overnight. Still complaining of some abdominal pain. Did not remember talking to her son yesterday.
Objective Data
-
Labs:
Laboratory Results
05/22/24
06:02
WBC 8.4
Hgb 8.9 L
Hct 28.0 L
Plt Count 385
Sodium 136
Potassium 3.9
Chloride 102
Carbon Dioxide 30
BUN 11
Creatinine 0.9
Glucose 93
Calcium 8.2 L
Vital Signs:
Vital Signs
Temp Pulse Resp BP Pulse Ox
98.4 F 78 16 106/44 95
05/22/24 07:42 05/22/24 07:42 05/22/24 07:42 05/22/24 07:42 05/22/24 07:42
I&O
05/21/24 05/22/24 05/23/24
06:59 06:59 06:59
Intake Total 1080 / 1080 1715 / 1715
Output Total 82 / 82
Balance 1050 / 1050 1633 / 1633
Review of Systems
-
Unable to obtain full review of systems at this time due to: Dementia
History Source: Patient
Constitutional: Denies Fever, No Appetite or Fatigue
Respiratory: Denies Cough or Trouble Breathing
Cardiac: Denies Chest Pain or Palpitations
Abdomen/GI: Reports Abdominal Pain; Denies Nausea, Vomiting, Diarrhea or Constipated
Genitourinary: Denies Difficulty Voiding or Urgency
Neuro: Denies Dizzy, Headache or Weakness
Physical Exam
-
General: No Apparent Distress and Comfortable
Respiratory: Clear to Auscultation and Non Labored Respirations
Cardiac: Regular Rhythm and S1/S2
GI: Soft, Tender (Lower abdomen tenderness) and Distended
Musculoskeletal: No Clubbing and No Cyanosis
Skin: Warm and Dry
Neuro: Awake, Alert, Oriented and AO x 3
Psych: Calm and Apparent Dementia
Data Reviewed
-
CT Scan: Report Reviewed by me and Discussed with Physician
Labs: Labs Reviewed by me, Discussed with Physician and Discussed with Patient
--- NOTE | 2024-05-22 10:03 | W.PN.GS2 ---
Today's Communication / Plan
-
Continue MARTINEZ drain, follow outputs
Assessment / Plan
-
83F with SBO at distal ileum 2/2 malignancy with imaging findings suspicious for hepatic and pulmonary mets now POD #13 lap assisted ileocecectomy with ileocolonic anastomosis c/b anastomotic leak
AFVSS
No leukocytosis
IR drain appears to be adequately controlling anastomotic leak clinically. CT in follow up on 05/21 with drain good position in the abscess cavity. Oral contrast from anastomotic leak site into drainage catheter. There does not appear to be any
significant residual or enlarging abscess cavity or developing new collections.
Output from catheter variable but overall decreasing
Plan:
-- Continue with soft bite sized diet ([employer] following)
-- Given patient's stability with IR drainage would recommend continued nonoperative management.
-- C/W Metamucil for bulking effect
-- PPI for potential antisecretory effects with management of anastomotic leak
-- She has completed the 7 day Augmentin course as per ID this am
Subjective Data
-
Date of Service: May 22, 2024
Patient seen and examined at bedside. Denies n/v. Denies pain. Passing stools/flatus.
Objective Data
-
Intake and Output
05/21/24 05/22/24 05/23/24
06:59 06:59 06:59
Intake Total 1080 / 1080 1715 / 1715
Output Total 82 / 82
Balance 1050 / 1050 1633 / 1633
Intake:
Oral fluids 1080 / 1080 1710 / 1710
Amount instilled into Drain (
Total)
Right Lower Abdomen Fritz- /
[place] Placed in IR
Output:
Liquid stool amount 2 / 2
Rectum 2 / 2
Drain Output (Total) 30 / 30 80 / 80
Right Lower Abdomen Fritz- 30 / 30 80 / 80
[place] Placed in IR
Other:
Number of approximated MODERATE 2 1
amounts of urine
Number of approximated LARGE 1 3
amounts of urine
How many times incontinent 1
SMALL amount urine
How many times incontinent 1
MODERATE amount urine
Vital Signs
Temp Pulse Resp BP Pulse Ox
98.4 F 78 16 106/44 95
05/22/24 07:42 05/22/24 07:42 05/22/24 07:42 05/22/24 07:42 05/22/24 07:42
Lab Results
05/22/24 06:02
05/22/24 06:02
Calcium 8.2 mg/dl (8.4-10.2) L 05/22/24 06:02
Phosphorus 2.9 mg/dl (2.5-4.5) 05/18/24 11:06
Magnesium 1.8 mg/dl (1.6-2.3) 05/18/24 11:06
Total Bilirubin 0.3 mg/dl (0.2-1.3) 05/21/24 05:42
Direct Bilirubin 0.2 mg/dl (0.0-0.4) 05/16/24 06:54
AST 24 U/L (14-36) 05/21/24 05:42
ALT 10 U/L (0-35) 05/21/24 05:42
Alkaline Phosphatase 107 U/L (38-126) 05/21/24 05:42
Total Protein 4.8 g/dl (6.3-8.2) L 05/21/24 05:42
Albumin 2.3 g/dl (3.5-5.0) L 05/21/24 05:42
Physical Exam
-
NAD AAO
ABD: Soft, obese, mild tenderness palpation right hemiabdomen without rebound or guarding
Incisions with dressings without erythema drainage or open wounds
Right sided IR drain to bulb suction with feculent material
--- NOTE | 2024-05-22 10:24 | CM ---
Addendum entered by Erika Ordaz 05/22/24 11:29:
Spoke with pts son Cuate - notified pt for discharge to [facility]
Wheel chair van transport arraigned for pt, pts son given info/phone number to call regarding fee
Discussed IMM
Original Note:
Case management following for discharge planning
Pt for discharge today
Spoke with Peyton at [facility] - can accept
Plan - anticipate transfer to [facility]
R - [phone]
- [phone]
[2024-05-22 11:23] LABS: Glucose - Point of Care 199 mg/dl (70-99)
[2024-05-22] MEDS: NOVOLOG FLEXPEN-LOW RESISTANCE 1 UNITS SC (11:42)
[2024-05-22 11:54] VITALS: BP 115/49
--- NOTE | 2024-05-22 12:04 | W.DCSUMMARY ---
Documented by User: Mauricio Gamble MD, Resident 05/22/24 13:15
Discharge Summary
Discharge Data
Date of Admission: 05/05/24
Date of Discharge: 05/22/24
-
Pending Results: No
Hospital Course
Admission Diagnosis-
Small Bowel Obstruction
Conditions Prior to Admission-
Obesity
DM-II
Psoriatic Arthritis
Hypertension
Dementia
Hospital Course-
Patient is an 83y F with PMH significant for DM-II, obesity and sedentary status who presented to the ED complaining of abdominal pain and N/V on 05/05. Patient stated that her symptoms started about 2 days earlier and had been persistent. She
reported diffuse abdominal pain and nausea with occasional non-bloody emesis. She stated that she has been moving her bowels normally and notes that she had a normal BM this AM. Patient denied any fevers / chills. Patient was found to have a distal
small bowel obstruction, most likely from intraabdominal-carcinoma. CT scan also showed widespread metastatic disease. NG tube was placed and patient was admitted for further management. Surgery was consulted at this time. Right base lung mass,
hepatic lesions, peritoneal seeding and fluid were concerning for metastatic spread. Oncology was also consulted at this time. Her benign hypertension and DM-II were managed with medications as needed, no PO medications. Oncology agreed with plans
for a biopsy of the liver at this time, and management of bowel obstruction as per surgical service.
IR were consulted for a liver biopsy as patient's symptoms were relieving. Patient underwent successful ultrasound guided biopsy of the R hepatic mass with 5 18g core samples obtained. Patient tolerated the procedure well. Patient's abdomen was
re-evaluated with a CT scan as her CEA levels were 24.4. Laparoscopic assisted right hemicolectomy was reviewed in detail including the operative technique utilizing a written diagram/drawing for symptomatic relief. Patient reported significant RUQ
pain and a stat abdominal ultrasound showed minimal perihepatic fluid. No intervention was required at this time.
Patient underwent Laparoscopic assisted ileocecectomy on 05/08. A large infiltrating mass at the terminal ileum with resultant partial obstruction was found. Single bowel resection resected en bloc involving distal 2 feet of ileum and cecum. Patient
continued to recover from her procedure for the next few days with her diet advancing as her condition improved.
Pathology results came back on 05/12 which showed stage IV colorectal adenocarcinoma. Palliative and comfort focused options were discussed with the patient and her son. At this time, the goals of care remained restorative and the plan was to follow
up in 2-3 weeks for possible palliative systemic therapy. Patient continued to stay in the hospital but started to develop a fever on 05/14. Patient was given empiric Cefipime, tylenol and ibuprofen for fever control, and a repeat CT abdomen/pelvis
with IV/oral contrast was performed. Blood cultures were also taken and Infectious disease was consulted.
CT guided drainage of postoperative intra-abdominal fluid collection was performed on 05/15. 15 cc of yellow somewhat gelatinous fluid was aspirated during the procedure. Patient was continued on antibiotics as directed by ID and IR was consulted at
this time. Patient continued to be on antibiotics and pain control for the next few days. Blood cultures were unremarkable at this time as well. Patient was switched to oral Augmentin at this time.
On 05/20 the MARTINEZ drain showed some evidence of fecal leak. Patient recommended further monitoring for now as she is high risk for surgery. Patient continued to be monitored as goals of care discussions were taking place between the patient and her
son. Family decided to have patient go to a SNF and talk about hospice in the future but not at this time. Patient was discharged on 05/[address] [facility] and will be following up with Surgery and Oncology in an out patient basis.
Patient's other prior conditions were managed with her home medications.
Discharge Plan
-
Patient Disposition: Assisted/SNF
Discharge Diagnosis/Procedures: Small Bowel Obstruction Secondary to Intra-abdominal Malignancy
Diet: Low Fiber
Additional Diets: Soft and bite sized food
Activity: No strenuous activity
Additional Activity: Do not lift over 15 lbs for the next 3-4 weeks
Bathing Restrictions: OK to Shower
Wound Care: The glue over your incisions will flake off in about 2 weeks. Sutures beneath will dissolve. Ok to wash gently with soap and water.
Change the dressing over your drain with dry gauze daily. Ok to remove for showers and then reapply after you dry off.
You will need to flush your drain (towards your body) daily with 5ml of sterile saline.
Keep track of your drainage for your follow up appointment with your surgeon. Your surgeon's office will coordinate a study in the radiology department to evaluate your drain prior to it being removed.
Referrals:
Agnieszka Yanes DO [Active] - (call office to schedule follow up 2-4 weeks after hospital discharge)
Sofi Rodriguez PA-C [Family Provider] -
Jeff Aggarwal MD [Active] - in one to two weeks
Additional Discharge Medication Instructions: Continue with medications as instructed
Prescriptions:
New
sodium chloride 0.9 % (flush) [Normal Saline Flush] Syringe
5 ml intra-catheter DAILY Qty: 100 0RF
Rx Instructions:
flush abdominal drain daily with 5ml of sterile saline
amoxicillin-pot clavulanate [amoxicillin-pot clavulanate] 875-125 mg tablet
1 tab PO Q12 Qty: 14 0RF
Continued
atorvastatin 20 mg Tablet
20 mg PO DAILY
olmesartan 20 MG tablet
20 mg PO DAILY
metformin 500 mg Tablet Extended Release 24 Hr
500 mg PO DAILY
acetaminophen 325 mg tablet
650 mg PO QID
Discharge Orders:
Discharge Patient (As Directed); Ordered 05/22/24
Ordered By: Mauricio Gamble
Discharge Date and Time
Discharge Date/Time: 05/22/24 12:43
Print Language: BELARUSIAN

Documented by User: Pee Beasley MD 05/22/24 16:32
Discharge Summary
Discharge Data
Date of Admission: 05/05/24
Date of Discharge: 05/22/24
Discharge Plan
-
Patient Disposition: Assisted/SNF
Discharge Diagnosis/Procedures: Small Bowel Obstruction Secondary to Intra-abdominal Malignancy
Diet: Low Fiber
Additional Diets: Soft and bite sized food
Activity: No strenuous activity
Additional Activity: Do not lift over 15 lbs for the next 3-4 weeks
Bathing Restrictions: OK to Shower
Wound Care: The glue over your incisions will flake off in about 2 weeks. Sutures beneath will dissolve. Ok to wash gently with soap and water.
Change the dressing over your drain with dry gauze daily. Ok to remove for showers and then reapply after you dry off.
You will need to flush your drain (towards your body) daily with 5ml of sterile saline.
Keep track of your drainage for your follow up appointment with your surgeon. Your surgeon's office will coordinate a study in the radiology department to evaluate your drain prior to it being removed.
Referrals:
Agnieszka Yanes DO [Active] - (call office to schedule follow up 2-4 weeks after hospital discharge)
Sofi Rodriguez PA-C [Family Provider] -
Jeff Aggarwal MD [Active] - in one to two weeks
Additional Discharge Medication Instructions: Continue with medications as instructed
Prescriptions:
New
sodium chloride 0.9 % (flush) [Normal Saline Flush] Syringe
5 ml intra-catheter DAILY Qty: 100 0RF
Rx Instructions:
flush abdominal drain daily with 5ml of sterile saline
amoxicillin-pot clavulanate [amoxicillin-pot clavulanate] 875-125 mg tablet
1 tab PO Q12 Qty: 14 0RF
Continued
atorvastatin 20 mg Tablet
20 mg PO DAILY
olmesartan 20 MG tablet
20 mg PO DAILY
metformin 500 mg Tablet Extended Release 24 Hr
500 mg PO DAILY
acetaminophen 325 mg tablet
650 mg PO QID
Discharge Orders:
Discharge Patient (As Directed); Ordered 05/22/24
Ordered By: Mauricio Gamble
Discharge Date and Time
Discharge Date/Time: 05/22/24 12:43
Print Language: BELARUSIAN
== END 2024-05-22 12:43 | DRG 329 ==
LOC: 3 WEST ACU 02:26
PROVIDERS: Internal Medicine; Radiology Diagnostic Radiology; Radiology Vascular & Interventional Radiology; Specialist; Student in an Organized Health Care Education/Training Program; Surgery; ADMITTING PHYSICIAN Hospitalist; ATTENDING PHYSICIAN Hospitalist; CONSULT PHYSICIAN Internal Medicine Hematology & Oncology; EMERGENCY PHYSICIAN Emergency Medicine; FAMILY PHYSICIAN Physician Assistant Medical; OTHER PHYSICIAN Student in an Organized Health Care Education/Training Program; OTHER PHYSICIAN Surgery
PROC: 0FB13ZX Excision of Right Lobe Liver, Percutaneous Approach, Diagnostic (ICD-10-PCS; 2024-05-06)
PROC: 0DTH4ZZ Resection of Cecum, Percutaneous Endoscopic Approach (ICD-10-PCS; 2024-05-08)
PROC: 0DBB4ZZ Excision of Ileum, Percutaneous Endoscopic Approach (ICD-10-PCS; 2024-05-08)
PROC: 5A09357 Assistance with Respiratory Ventilation, Less than 24 Consecutive Hours, Continuous Positive Airway Pressure (ICD-10-PCS; 2024-05-08)
PROC: 0W9G30Z Drainage of Peritoneal Cavity with Drainage Device, Percutaneous Approach (ICD-10-PCS; 2024-05-15)
DX: C18.0 Malignant neoplasm of cecum (principal); J96.01 Acute respiratory failure with hypoxia; C78.01 Secondary malignant neoplasm of right lung; C78.4 Secondary malignant neoplasm of small intestine; C78.7 Secondary malignant neoplasm of liver and intrahepatic bile duct; C78.6 Secondary malignant neoplasm of retroperitoneum and peritoneum; R18.8 Other ascites; E87.20 Acidosis, unspecified; J98.11 Atelectasis; D62 Acute posthemorrhagic anemia; K91.89 Other postprocedural complications and disorders of digestive system; L40.50 Arthropathic psoriasis, unspecified; F03.90 Unspecified dementia, unspecified severity, without behavioral disturbance, psychotic disturbance, mood disturbance, and anxiety; I10 Essential (primary) hypertension; E66.01 Morbid (severe) obesity due to excess calories; Z68.32 Body mass index [BMI] 32.0-32.9, adult; E11.9 Type 2 diabetes mellitus without complications; K66.0 Peritoneal adhesions (postprocedural) (postinfection); E78.00 Pure hypercholesterolemia, unspecified; Z96.641 Presence of right artificial hip joint; Z79.84 Long term (current) use of oral hypoglycemic drugs; Z79.899 Other long term (current) drug therapy; Z87.891 Personal history of nicotine dependence; Z88.0 Allergy status to penicillin
CPT/HCPCS: 88307; 88309; 47000; 49406; 71046; 74176; 74177; 76705; 76942; 80048; 80053; 81003; 82248; 82378; 82550; 82607; 82728; 82746; 82945; 82962; 83036; 83540; 83550; 83605; 83615; 83690; 83735; 84100; 84157; 85025; 85027; 85610; 86301; 86850; 86900; 86901; 87040; 87070; 87205; 87811; 88333; 88341; 88342; 89051; 92526; 92610; 93005; 96361; 96374; 97116; 97162; 97166; 97530; 97535; 99152; 99153; 99285; J1335; J2916; Q9967

== ENCOUNTER → 2024-06-19 09:53 | Outpatient (REF) | payer MEDICARE, SELFPAY ==
[2024-06-19 10:20] VITALS: BP 126/33; BP_SYST 56
[2024-06-19 10:45] VITALS: BP 119/39
== END ==
LOC: RADI 09:53
PROVIDERS: ATTENDING PHYSICIAN Surgery
DX: Z46.82 Encounter for fitting and adjustment of non-vascular catheter (principal); K65.1 Peritoneal abscess
CPT/HCPCS: 49424; 76080

== ENCOUNTER → 2024-06-22 14:26 | Outpatient (REF) | payer MEDICARE, SELFPAY | LOC: RAD 14:26 | PROVIDERS: ATTENDING PHYSICIAN Surgery; FAMILY PHYSICIAN Physician Assistant Medical | DX: K63.2 Fistula of intestine (principal) | CPT/HCPCS: 74177; Q9967 ==

== ENCOUNTER 2024-07-11 20:10 | Emergency (ER) | payer MEDICARE, SELFPAY ==
[2024-07-11 20:12] VITALS: BP 173/77
[2024-07-11 22:53] VITALS: BP 139/43; BMI 31.9
[2024-07-11 23:12] LABS: % Basophils 0.5 % (0-2); % Eosinophils 1.7 % (0-6); % Immature Granulocytes 0.4 % (0-0.5); % Lymphocytes 20.4 % (20.5-51.1); % Monocytes 7.9 % (1.7-9.3); % Neutrophils 69.1 % (42.2-75.2); Absolute Basophils 0.1 10^3/uL (0-0.2); Absolute Eosinophils 0.2 10^3/uL (0-0.7); Absolute Monocytes 0.8 10^3/uL (0.1-0.6); Absolute Neutrophils 6.8 10^3/uL (1.4-6.5); Hematocrit 33.7 % (37.0-47.0); Hemoglobin 10.6 g/dL (12.0-16.0); Mean Corp Hgb Conc. 31.5 g/dL (33.0-37.0); Mean Corpuscular Hgb 26.9 pg (27.0-31.0); Mean Corpuscular Volume 85.5 fL (81.0-99.0); Mean Platelet Volume 9.6 fL (7.4-10.4); Nucleated Red Blood Cells % 0 %; Platelet Count 215 10^3/uL (130-400); Red Blood Cell Count 3.94 10^6/uL (4.20-5.40); Red Cell Dist. Width 17.8 % (11.5-14.5); White Blood Cell Count 9.9 10^3/uL (4.8-10.8)
[2024-07-11 23:28] LABS: Blood Urea Nitrogen 15 mg/dl (7-17); Calcium 8.2 mg/dl (8.4-10.2); Carbon Dioxide 34 mmol/L (22-30); Chloride 98 mmol/L (98-107); Estimated Creatinine Clearance 36 ml/min; Glucose 133 mg/dl (70-99); Sodium 137 mmol/L (135-145); eGFR 55.55
--- NOTE | 2024-07-11 23:57 | ED.GENMED ---
History of Present Illness
General
Chief Complaint: Catheter/Tube Problem
Source: patient
Exam Limitations: none
Time Seen by Provider: 07/11/24 22:37
History of Present Illness
History of Present Illness:
83-year-old female presents with son who states that patient's MARTINEZ drain fell out today at 3 PM. She had bowel resection surgery in May of this year and ended up needing a MARTINEZ drain secondary to fluid collection. The son has been getting 15 to 30
mL of drainage out of the drain daily. He came home from work today and she told him that the drain fell out. She does have dementia. There has been no vomiting or fever. She has been moving her bowels. No other complaints
Past History
Past History
ED Past Medical History: HTN, Renal failure and Other (Psoriatic arthritis, dementia, morbid obesity)
ED Past Surgical History: Orthopedic (Right hip replacement)
Social History
Tobacco: Non-smoker
Living: with family
Phy Exam
Physical Exam
Physical Exam:
General: Well-appearing female no acute respiratory distress
HEENT: Normocephalic atraumatic
Heart: Regular rate and rhythm no murmur
Abdomen is soft nontender nondistended site of MARTINEZ drain was visualized. There is mild drainage from this. No surrounding erythema. There are suture material noted from the site. The drain is not present. The patient has a drain with her. The
pigtail is there in its entirety
Extremities: No cyanosis
Course
Orders/Labs/Results
Orders:
Orders
07/11/24 23:03
Basic Metabolic Panel Urgent
Complete Blood Count/With Diff Urgent
Abnormal Lab Results
07/11/24
23:03
RBC 3.94 L 10^6/uL
(4.20-5.40)
Hgb 10.6 L g/dL
(12.0-16.0)
Hct 33.7 L %
(37.0-47.0)
MCH 26.9 L pg
(27.0-31.0)
MCHC 31.5 L g/dL
(33.0-37.0)
RDW 17.8 H %
(11.5-14.5)
Absolute Neuts (auto) 6.8 H 10^3/uL
(1.4-6.5)
Absolute Monos (auto) 0.8 H 10^3/uL
(0.1-0.6)
Lymphocytes % 20.4 L %
(20.5-51.1)
Carbon Dioxide 34 H mmol/L
(22-30)
Glucose 133 H mg/dl
(70-99)
Calcium 8.2 L mg/dl
(8.4-10.2)
07/11/24 23:03
07/11/24 23:03
Vital Signs
Initial and Last Documented VS:
Initial Vital Signs
Temp Pulse Resp BP Pulse Ox
99.3 F 82 17 173/77 96
07/11/24 20:12 07/11/24 20:12 07/11/24 20:12 07/11/24 20:12 07/11/24 20:12
Last Documented Vital Signs
Temp Pulse Resp BP Pulse Ox
99.3 F 82 17 139/43 95
07/11/24 20:12 07/11/24 20:12 07/11/24 20:12 07/11/24 22:53 07/11/24 22:54
MDM/Problems Addressed
Differential Diagnosis Includes:
MARTINEZ drain came out somehow today. Check labs. She does not have a fever. White count is normal. Abdomen exam benign. Discussed with general surgery. No indication for urgent admission to hospital but will advise close follow-up with the surgeon
of record for further discussion of potential IR placement of drain as an outpatient. No indication for admission.
*Critical Care Note
Total Time (30-74mins, 75-104mins- exclusive of procedures): Not Applicable
ED Attending Note
-
Portions of this chart may have been created with voice recognition software.� Occasional wrong word or��sound alike� substitutions may have occurred due to the inherent limitations of voice recognition software.
Discharge Plan
Departure
Patient Disposition: Home (Routine Discharge)
Date of Disposition: 07/11/24
Time of Disposition: 23:59
Patient with high blood pressure during this ER visit?: No
Discharge Problem:
MARTINEZ drain dislodged
Prescriptions:
No Action
atorvastatin 20 mg Tablet
20 mg PO DAILY
olmesartan 20 MG tablet
20 mg PO DAILY
metformin 500 mg Tablet Extended Release 24 Hr
500 mg PO DAILY
acetaminophen 325 mg tablet
650 mg PO QID
sodium chloride 0.9 % (flush) [Normal Saline Flush] Syringe
5 ml intra-catheter DAILY Qty: 100 0RF
Rx Instructions:
flush abdominal drain daily with 5ml of sterile saline
amoxicillin-pot clavulanate [amoxicillin-pot clavulanate] 875-125 mg tablet
1 tab PO Q12 Qty: 14 0RF
hydrochlorothiazide 25 mg Tablet
25 mg PO DAILY
Referrals:
UNKNOWN - PT NOT,INTERVIEWE [Family Provider] -
Activity Restrictions/Additional Instructions:
Please change your bandage as needed. Follow-up with your surgeon Saturday morning. Return for increasing pain fever vomiting or other concerning findings
Interventions
Interventions:
*Risk Screen - Suicide Last Done: 07/11/24 23:52
*General Assessment Last Done: 07/11/24 20:18
*Neglect/Abuse Screening Last Done: 07/11/24 22:55
ED- Fall Risk Assessment Last Done: 07/11/24 22:55
*ED COVID-19 Vaccine History Last Done: 07/11/24 22:55
IJ-Rlduaf-Nuznexmrqo Assessment Last Done: 07/11/24 22:55
ED-Female Genitourinary Assessment Last Done: 07/11/24 22:55
Discharge Date and Time
Print Language: LITHUANIAN
== END 2024-07-12 00:12 | disposition home or self-care (01) ==
LOC: EMR 20:10
PROVIDERS: Emergency Medicine; EMERGENCY PHYSICIAN Student in an Organized Health Care Education/Training Program
DX: Z43.4 Encounter for attention to other artificial openings of digestive tract (principal); F03.90 Unspecified dementia, unspecified severity, without behavioral disturbance, psychotic disturbance, mood disturbance, and anxiety; I12.9 Hypertensive chronic kidney disease with stage 1 through stage 4 chronic kidney disease, or unspecified chronic kidney disease; N18.9 Chronic kidney disease, unspecified; E66.01 Morbid (severe) obesity due to excess calories; L40.50 Arthropathic psoriasis, unspecified; Z96.641 Presence of right artificial hip joint
CPT/HCPCS: 99283; 80048; 85025

== ENCOUNTER 2025-02-16 19:22 | Inpatient (IN) | payer MEDICARE, SELFPAY ==
[2025-02-16] VITALS (15 sets, daily range): BP systolic 110–137; BP diastolic 31–88; PULSE 72–77; BMI 26.9; BMI 25.5
[2025-02-16 15:34] LABS: ALT (SGPT) 19 U/L (0-35); AST (SGOT) 26 U/L (14-36); Albumin 2.8 g/dl (3.5-5.0); Alkaline Phosphatase 201 U/L (38-126); Blood Urea Nitrogen 30 mg/dl (7-17); Calcium 8.6 mg/dl (8.4-10.2); Carbon Dioxide 22 mmol/L (22-30); Chloride 115 mmol/L (98-107); Glucose 107 mg/dl (70-99); Potassium 4.9 mmol/L (3.5-5.1); Sodium 140 mmol/L (135-145); Total Bilirubin 0.4 mg/dl (0.2-1.3); Total Protein 5.9 g/dl (6.3-8.2)
--- NOTE | 2025-02-16 16:11 | ED.GENMED ---
History of Present Illness
General
Chief Complaint: Dizziness
Source: patient and family (Son reports she has had a headache and dizziness for several days)
Exam Limitations: none
Time Seen by Provider: 02/16/25 15:58
Nursing documentation reviewed up to this point in time: agreed with
History of Present Illness
History of Present Illness:
84-year-old female presents to the emergency department due to dizziness, headache for several days. She has confusion. History is contributed by her son.
Past History
Past History
ED Past Medical History: HTN, Renal failure and Other (Psoriatic arthritis, dementia, morbid obesity)
ED Past Surgical History: Orthopedic (Right hip replacement)
Social History
Tobacco: Non-smoker
Alcohol: None
Drug: None
Living: with family
Review of Systems
Review of Systems
Allergies reviewed?: Yes
All Other Systems: Not applicable
Constitutional: Reports no symptoms
EENT: Reports no symptoms
Respiratory: Reports no symptoms
Cardiac: Reports no symptoms
ABD/GI: Reports abdominal pain
: Reports no symptoms
Musculoskeletal: Reports no symptoms
Skin: Reports no symptoms
Neurological: Reports dizzy
Endocrine: Reports no symptoms
Hematologic/Lymphatic: Reports no symptoms
Psychiatric: Reports no symptoms
Phy Exam
Physical Exam
Physical Exam:
Physical Exam
General: Afebrile
Neck: supple. no meningeal signs. normal posterior pharynx
Heart: s1/s2 regular rate and rhythm, no murmur. equal radial
pulses.
HEENT: Pupils equal round reactive to light, EOMI
Lungs: no acute respiratory distress. clear bilaterally
Abdomen: normal bowel sounds. not tender. no CVAT
Neuro: alert and oriented to person and place. no focal neurological deficits cranial nerves II through XII intact
Skin: no rash
Psychiatric: well kept. interactive and cooperative
Extremities: no edema. no calf tenderness. negative homans. good distal pulses
Course
Orders/Labs/Results
Orders:
Orders
02/16/25 15:08
EKG [Electrocardiogram (*1)] Urgent
Reason for Study: Shortness of Breath
EKG- Treatment ONCE
02/16/25 15:09
Type+Screen Urgent
CMP [Comprehensive Metabolic Panel] Urgent
Complete Blood Count/With Diff Urgent
02/16/25 16:10
CT Head W/o Iv Contrast Urgent
Comment:
Reason For Exam: headache
02/16/25 16:11
CT Abd/pelvis W Iv Cont Urgent
Comment:
Reason For Exam: diffuse abd pain, unclear onset
02/16/25 17:36
Blood Bank Products [* Blood Bank Products] Urgent
Dr's Orders: 1 unit prbcs
Blood Bank Products: *Packed RBC Leuko(PRBC's)
Quantity: 1
Transfuse Today: Yes
Reason: Bleeding
Pantoprazole [Protonix IV] 80 mg IV NOW STA
02/16/25 18:27
Admit/Transfer Patient As Directed
Co-Sign Provider:
Level of Care: Inpatient admission
Assign to:: Telemetry
Physician / Group: [email or web address]
Diagnosis: Anemia of Chronic disease HoB POS dark brown stool GIB
Reason for Telemetry: Other
Other Reason for Telemetry: Anemia of Chronic disease HoB POS dark brown stool GIB
Date to Stop Telemetry: 02/18/25
Time to Stop Telemetry: 11:00
Reason for Hospitalization: Anemia of Chronic disease
HoB POS dark brown stool GIB
Expected length of stay greater than two midnights?: Yes
ELOS- Estimated Length of Stay in days: 5
I certify the patient meets the requirements for IP care: Yes
PRN Pain Medication Management As Directed
May give lesser potent ordered pain med per pt: No
preference::
Protocol:: Medication orders for pain may NOT be administered in
a manner that defers to patient preference. Follow
all order instructions as written.
Contact provider if ordering parameters for pain need
to be adjusted.
02/16/25 18:29
Code Status As Directed
Resuscitation Status: Full Code
02/16/25 18:40
Code Status As Directed
Resuscitation Status: Do not resuscitate
Reached after discussion with pt or family/Healthcare POA: Yes
Physician note:: case dw Son ( Cuate )
02/16/25 18:41
DNR Bracelet Application ONCE
02/16/25 21:48
Urinalysis Reflex To Culture Urgent
Date Specimen was Collected: 02/16/25
Time Specimen was Collected: 21:27
02/16/25 21:57
0.9% Sodium Chloride 1000 ml [Nss] 1,000 ml IV 80 mls/hr
Dextrose 50%-Water [Dextrose 50% Syringe] 12.5 grams IV [id number] PRN
Glucagon [GlucaGen] 1 mg IM PRN PRN
Pantoprazole 80 mg/100 ml Nss [Protonix] 80 mg in 100 ml IV Q10H
02/16/25 21:57
Activity As Directed
Activity Level: With Assistance
Bedside Glucose Monitoring As Directed
Frequency: AC&HS
Additional Instructions:: Change to q6h if pt on TPN, tube feeding or not eating
INT (Intravenous Needle Therapy) As Directed
Comment: Place 2 IV catheters of the largest bore possible until stable
Intake/ Output As Directed
Frequency: Per unit guidelines
Orthostatic Vital Signs As Directed
Orthostatic VS Frequency: Now
Comment: then every four hours for twenty-four hours
Pneumatic Compression Sleeves As Directed
Type: Knee high
Vital Signs As Directed
Frequency: Per unit guidelines
DX Deep Vein Thrombosis Video Routine
02/17/25 06:00
Comprehensive Metabolic Panel IN AM
Glycohemoglobin (HgbA1c) IN AM
02/17/25 07:30
Insulin Aspart Corrective Low [Novolog Flexpen-Low Resistance] See Protocol SC AC
02/18/25 11:00
DC Protocol for Telemetry ONCE
Abnormal Lab Results
02/16/25
15:09
RBC 2.08 L 10^6/uL
(4.20-5.40)
Hgb 5.5 L* g/dL
(12.0-16.0)
Hct 18.7 L* %
(37.0-47.0)
MCH 26.4 L pg
(27.0-31.0)
MCHC 29.4 L g/dL
(33.0-37.0)
RDW 17.0 H %
(11.5-14.5)
Absolute Neuts (auto) 7.6 H 10^3/uL
(1.4-6.5)
Neutrophils % 79.2 H %
(42.2-75.2)
Lymphocytes % 12.7 L %
(20.5-51.1)
Chloride 115 H mmol/L
(98-107)
BUN 30 H mg/dl
(7-17)
Creatinine 1.3 H mg/dL
(0.6-1.0)
Glucose 107 H mg/dl
(70-99)
Alkaline Phosphatase 201 H U/L
(38-126)
Total Protein 5.9 L g/dl
(6.3-8.2)
Albumin 2.8 L g/dl
(3.5-5.0)
Crossmatch IS Only See Detail
02/16/25 15:09
02/16/25 15:09
Vital Signs
Initial and Last Documented VS:
Initial Vital Signs
Pulse Resp BP Pulse Ox
77 20 117/39 98
02/16/25 14:58 02/16/25 14:58 02/16/25 14:58 02/16/25 14:58
Last Documented Vital Signs
Temp Pulse Resp BP Pulse Ox
98.3 F 77 18 137/47 98
02/16/25 22:00 02/16/25 22:00 02/16/25 22:00 02/16/25 22:00 02/16/25 22:00
MDM/Problems Addressed
Differential Diagnosis Includes:
Hypokalemia, GI bleed
MDM/Problems Addressed:
84-year-old female with GI bleed. Admit to hospitalist.
Chronic conditions affecting care: Cancer
Acute Exacerbation and/or Progression of Chronic Illness: Cancer (Colon cancer)
*Radiology
Radiology exam reviewed: radiology read reviewed (CT abdomen pelvis no acute findings)
*Pulse Oximetry
Patient hypoxic: no
*Traffic Attendant Interpretation
Rate: Traffic Attendant- N/A
*Critical Care Note
Total Time (30-74mins, 75-104mins- exclusive of procedures): 38
comment:
Critical care statement: A total of 38 minutes of critical care time was provided for this patient. This includes management of unstable vital signs, evaluation of the patient at bedside, reviewing the patient's pertinent medical records, discussion
with consultants, review of old EKGs and review of pertinent medical records. This time with separate from time utilized to perform the aforementioned documented procedures
Data Reviewed
Review of Other/Old Records Reveals: Labs (Prior hemoglobin 10.6 on 07/11/2024)
Source: records
Patient Management
Social determinants of health affecting care: Living situation and Strong social support
Discussion with other providers: Hospitalist
Escalation/DeEscalation of care consider admission/obs:
Admit indicated
ED Attending Note
-
Portions of this chart may have been created with voice recognition software.� Occasional wrong word or��sound alike� substitutions may have occurred due to the inherent limitations of voice recognition software.
Discharge Plan
Departure
Patient Disposition: Admit
Date of Disposition: 02/16/25
Time of Disposition: 17:36
Admit to: IMU
Presentation/result/management discussed w/ accepting MD/DO: Hospitalist
Patient with high blood pressure during this ER visit?: Yes
Condition: Good
Discharge Problem:
Gastrointestinal bleeding
Interventions
Interventions:
*Risk Screen - Suicide Last Done: 02/16/25 14:58
*General Assessment Last Done: 02/16/25 15:31
*Neglect/Abuse Screening Last Done: 02/16/25 15:31
*ED- Fall Risk Assessment Last Done: 02/16/25 15:31
*ED COVID-19 Vaccine History Last Done: 02/16/25 14:58
*Nursing Disposition Last Done: 02/16/25 21:50
ED- Neurological Assessment Last Done: 02/16/25 19:15
ED- Cardiac Assessment Last Done: 02/16/25 19:15
ED Swallowing Screen Last Done: 02/16/25 19:15
Discharge Date and Time
Discharge Date/Time: 02/16/25 21:52
[2025-02-16 16:35] LABS: Hematocrit 18.7 % (37.0-47.0); Hemoglobin 5.5 g/dL (12.0-16.0); Mean Corp Hgb Conc. 29.4 g/dL (33.0-37.0); Mean Corpuscular Hgb 26.4 pg (27.0-31.0); Mean Corpuscular Volume 89.9 fL (81.0-99.0); Mean Platelet Volume 9.9 fL (7.4-10.4); Platelet Count 367 10^3/uL (130-400); Red Blood Cell Count 2.08 10^6/uL (4.20-5.40); White Blood Cell Count 9.5 10^3/uL (4.8-10.8)
[2025-02-16 17:01] LABS: % Basophils 0.3 % (0-2); % Immature Granulocytes 0.3 % (0-0.5); % Lymphocytes 12.7 % (20.5-51.1); % Monocytes 6.5 % (1.7-9.3); % Neutrophils 79.2 % (42.2-75.2); Absolute Eosinophils 0.1 10^3/uL (0-0.7); Absolute Lymphocytes 1.2 10^3/uL (1.2-3.4); Absolute Monocytes 0.6 10^3/uL (0.1-0.6); Absolute Neutrophils 7.6 10^3/uL (1.4-6.5); Nucleated Red Blood Cells % 0 %
--- NOTE | 2025-02-16 17:45 | HPS.HSE ---
Addendum entered and electronically signed by Alex Araujo MD 02/16/25 18:59:
Level of care : switch to TLM in place of IMU
Original Note:
Family Physician
-
Family Physician: Maykel Odell
Chief Complaint
-
dizziness, headache
History of Present Illness
HPI
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
- reports SoB, CP, nausea/ vomiting and dirrhea
- she did not know why called EMS
Admission labs
Hgb 5.5 ( was 10.6 on 07/10/24 )
Hct 18
Cr 1.3
ER Tx
Blood consented
1 units of PRBC ordered
PPI gtt initiated
Medical History
Past Medical History
Past Medical History: Reports Other
Additional Past Medical History:
Obesity
DM-II
Psoriatic Arthritis
Hypertension
? Dementia
PMH significant for stage IV colorectal adenocarcinoma under palliative care, SBO, HX anatomotic leak,
Past Surgical History: Reports Bowel Resection (Laparoscopic assisted ileocecectomy on 05/08. Single bowel resection resected en bloc involving distal 2 feet of ileum and cecum. ) and Other
Additional Past Surgical History:
Right KARLOS
Social History
Tobacco: Former Smoker (Quit smoking 40+ years ago.)
Alcohol: None
Drug: None
Living: With Family (Son)
Family History
Family History: Not pertinent
Allergies / Home Medications
Allergies reflects when Allergies were last updated in [facility].
Home Medications with original date entered in [facility]
Allergy/Medication List:
Allergies
Allergy/AdvReac Type Severity Reaction Status Date / Time
No Known Allergies Allergy Verified 02/16/25 15:39
Home Medications
atorvastatin 20 mg tablet 20 mg PO DAILY High cholesterol 10/24/22
olmesartan 20 mg tablet 20 mg PO DAILY Blood pressure 10/24/22
metformin 500 mg tablet,extended release 24 hr 500 mg PO DAILY Diabetes 05/04/24
Review of Systems
-
Constitutional: Reports See HPI
EENT: Reports No Symptoms
Respiratory: Reports No Symptoms
Cardiac: Reports No Symptoms
Abdomen/GI: Reports No Symptoms
: Reports No Symptoms
Musculoskeletal: Reports No Symptoms
Skin: Reports No Symptoms
Neurological: Reports Dizzy and Headache
Endocrine: Reports No Symptoms
Hematologic/Lymphatic: Reports No Symptoms
Psych: Reports No Symptoms
Physical Exam
Vital Signs
Vital Signs
Pulse Resp BP Pulse Ox
76 14 116/31 97
02/16/25 16:30 02/16/25 15:15 02/16/25 16:03 02/16/25 16:30
Physical Exam
General: No Apparent Distress, Comfortable and Conversant (pleasantly confused )
HEENT: NormoCephalic and Other (pale complexion )
Respiratory: Clear
Cardiac: S1/S2 and Regular Rhythm; No Murmur or Rub
GI: Soft, Non Tender, Non Distended and Normal Bowel Sounds; No Organomegaly
Rectal: Deferred by Provider
Musculoskeletal: Other (b/l trace edema )
Skin: No Rash
Neuro: Awake, Alert and Nonfocal/grossly intact
Psych: Calm and Apparent Dementia; No Intact Judgment/Insight
Laboratory Results
-
02/16/25 15:09
02/16/25 15:09
Laboratory Results
Total Bilirubin 0.4 mg/dl (0.2-1.3) 02/16/25 15:09
AST 26 U/L (14-36) 02/16/25 15:09
ALT 19 U/L (0-35) 02/16/25 15:09
Alkaline Phosphatase 201 U/L (38-126) H 02/16/25 15:09
Impression/Plan
-
Vital Signs
Pulse Resp BP Pulse Ox
76 14 116/31 97
02/16/25 16:30 02/16/25 15:15 02/16/25 16:03 02/16/25 16:30
Laboratory Tests
07/11/24 02/16/25
23:03 15:09
Hgb 10.6 L 5.5 L*
Hct 33.7 L 18.7 L*
MCV 85.5 89.9
Chloride 115 H
Carbon Dioxide 22
BUN 30 H
Creatinine 1.0 1.3 H
eGFR 55.55 40.30
AST 26
ALT 19
Alkaline Phosphatase 201 H
Albumin 2.8 [address]
- No acute intracranial abnormality noted.
- Moderate atrophy.
- Mild periventricular small vessel ischemic disease.
CT AP W Iv Cont
- No acute pathology of the abdomen or pelvis identified.
- Findings consistent with pulmonary, hepatic and peritoneal metastatic disease involving the anterior abdominal wall at multiple sites. All progressed.
- No evidence of intestinal obstruction. However, exam limited without oral contrast
- Too small to characterize hypodense right renal lesions likely benign cysts. Stable.
- Small hiatal hernia. Enlarged.
- moderate fecal material in the region of the rectum. Fecal impaction cannot be excluded. New.
- Probable myomatous uterus. Enlarged. This could be confirmed by pelvic ultrasound.
- Postsurgical change. The previous drain has been removed.
Last hospitalist admission: 05/05/24 -05/22/24
DC DXS: Small Bowel Obstruction, Intra-abdominal Malignancy
ASSESSMENT & PLAN
Severe anemia: multifactorial origins such as GI loss ( acute, subacute, chronic) plus advanced progressive metastatic colon CA burden
known severe Iron Deficiency
Anemia of Chronic disease
- HoB POS dark brown stool per ER attd but doubt actively bleeding
- No CT AP evidence of acute pathology of the abdomen or pelvis identified.
- No evidence of intestinal obstruction
- for Under palliative care for IV colorectal adenocarcinoma with peritoneal seeding, hepatic and pulmonary mets
- Blood consented
- agree with 1 unit of PRBCs
- NPO and IVF
- PPI gtt
- Trend H & H
- GI consult
- Onco consult
Hospice care candidate
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
- seems hospice care candidate
- under palliative care
- has 2 sons - they are considering for hospice care evaluation
- Oncology consult for hospice care evaluation
Relative hypotension
Benign Hypertension
- Hold Olmesartan
- supportive care
DMT2
- home metformin on hold.
- add low SSI
-last A1C 6.7
Chr ambulatory disorder
Use walker at home
DVT Prophylaxis: SCDs
Full code
IMU
[2025-02-16] MEDS: PROTONIX IV 80 MG IV (17:57)
[2025-02-16 21:54] LABS: Urine Albumin 1+ (Neg - Trace); Urine Bilirubin Negative (Negative); Urine Character Clear (Clear); Urine Color Yellow; Urine Glucose Negative (Negative); Urine Ketone Negative (Negative); Urine Leukocyte Negative (Negative); Urine Nitrite Negative (Negative); Urine Occult Blood Negative (Negative); Urine Specific Gravity 1.015 (<1.030); Urine Urobilinogen Negative (Neg - 1+)
--- NOTE | 2025-02-16 22:00 | PTCARENOTE ---
Pt arrived from ED via stretcher and was pulled over to the bed. Pt is AAOx2 disoriented to time, VSS, and w/o complaints of pain. Pt has call nuñez within reach.
[2025-02-16 22:05] LABS: Urine Bacteria Few (Negative); Urine Red Blood Cell 0-2 /HPF (0-2); Urine Squamous Cell >30 /LPF (Few); Urine White Cell 0-2 /HPF (0-5)
[2025-02-16] MEDS: PROTONIX 100 IV (22:20)
[2025-02-16] MEDS: NSS 1000 IV (22:20)
[2025-02-17] VITALS (7 sets, daily range): BP systolic 98–142; BP diastolic 47–68; PULSE 65–79
[2025-02-17 00:53] LABS: Hemoglobin 6.4 g/dL (12.0-16.0)
--- NOTE | 2025-02-17 02:59 | W.PN.UPDATE ---
Update Note
Progress Note Update
~ 1 am Critical value received post transfusion of 1 unit PRBC's. Hgb 6.4. Ordered one additional unit PRBC's. Repeat labs in am already ordered.
[2025-02-17 06:08] LABS: Glucose - Point of Care 81 mg/dl (70-99)
[2025-02-17] MEDS: PROTONIX 100 IV (07:18)
[2025-02-17 07:21] LABS: Hematocrit 23.5 % (37.0-47.0); Hemoglobin 7.5 g/dL (12.0-16.0); Mean Corp Hgb Conc. 31.9 g/dL (33.0-37.0); Mean Corpuscular Hgb 27.5 pg (27.0-31.0); Mean Corpuscular Volume 86.1 fL (81.0-99.0); Mean Platelet Volume 9.2 fL (7.4-10.4); Platelet Count 268 10^3/uL (130-400); Red Blood Cell Count 2.73 10^6/uL (4.20-5.40); Red Cell Dist. Width 16.2 % (11.5-14.5); White Blood Cell Count 7.3 10^3/uL (4.8-10.8)
[2025-02-17 07:32] LABS: ALT (SGPT) 15 U/L (0-35); AST (SGOT) 22 U/L (14-36); Albumin 2.2 g/dl (3.5-5.0); Alkaline Phosphatase 164 U/L (38-126); Blood Urea Nitrogen 23 mg/dl (7-17); Calcium 7.5 mg/dl (8.4-10.2); Carbon Dioxide 17 mmol/L (22-30); Chloride 117 mmol/L (98-107); Estimated Creatinine Clearance 33 ml/min; Glucose 64 mg/dl (70-99); Potassium 4.1 mmol/L (3.5-5.1); Sodium 141 mmol/L (135-145); eGFR 55.21
--- NOTE | 2025-02-17 07:58 | W.PN.HOSP.TC ---
Today's Communication/Plan
-
GI/oncology/hospice consult.
Assessment / Plan
Assessment / Plan
Impression:
Patient is a 84 years old with history of metastatic stage IV colon cancer, hypertension, diabetes, who came to the ER with dizziness, headache and confusion found to have hemoglobin level of 5.5, status post blood transfusion.
Family interested in hospice, GI/ oncology consulted.
CT abdomen pelvis shows:
No acute pathology of the abdomen or pelvis identified.
Findings consistent with pulmonary, hepatic and peritoneal metastatic disease involving the anterior abdominal wall at multiple sites. All progressed. No evidence of intestinal obstruction. However, exam limited without oral contrast
Too small to characterize hypodense right renal lesions likely benign cysts. Stable
Assessment/plan:
Severe anemia: multifactorial origins cannot rule out GI loss / metastatic colon CA.
known severe Iron Deficiency
Anemia of Chronic disease
CT abdomen pelvis shows:
No acute pathology of the abdomen or pelvis identified.
Findings consistent with pulmonary, hepatic and peritoneal metastatic disease involving the anterior abdominal wall at multiple sites. All progressed. No evidence of intestinal obstruction. However, exam limited without oral contrast
Too small to characterize hypodense right renal lesions likely benign cysts. Stable
Status post blood transfusion.
GI/oncology consult.
02/17
Status post 2 units of blood transfusion.
Hemoglobin currently 7.5.
Continue to monitor
Goal of care discussion
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
- seems hospice care candidate
- under palliative care
- has 2 sons - they are considering for hospice care evaluation
- Oncology consult for hospice care evaluation
02/17
Discussed with son at bedside.
Awaiting GI/ oncology input.
Most likely patient will be discharged home with home hospice.
Metabolic acidosis.
Continue IV fluid
Benign Hypertension
- Hold Olmesartan
- supportive care
DMT2
- home metformin on hold.
- add low SSI
Globin A1c 5.8
Chr ambulatory disorder
Use walker at home
CODE STATUS: DNR
DVT prophylaxis: SCDs
Diet: Soft diet
Family communication: Discussed with son at the
Disposition: GI/oncology/hospice Cx
Total time spent on today's encounter was 65 minutes which included time spent in counseling the patient/family regarding diagnosis and treatment plan as listed above, goals of care, and symptom management. Case was discussed with nursing staff,
specialists, and care coordinators/case management. All labs and imaging personally reviewed by me. Remainder the time spent in detailed review of previous records, lab data, imaging, and other medical provider documentation.
Anticipated Discharge: 24 - 48 hours
Subjective/Interval History
-
Date of Service: February 17, 2025
Patient is pleasantly confused, but denies any chest pain or shortness of breath.
Objective Data
-
Labs:
Laboratory Results
02/16/25 02/17/25 02/17/25
21:57 00:14 06:38
WBC 7.3
Hgb Cancelled 6.4 L* 7.5 L
Hct Cancelled 20.0 L* 23.5 L
Plt Count 268 D
Sodium 141
Potassium 4.1
Chloride 117 H
Carbon Dioxide 17 L
BUN 23 H
Creatinine 1.0
Glucose 64 L
Calcium 7.5 L
Total Bilirubin 1.0
AST 22
ALT 15
Alkaline Phosphatase 164 H
Vital Signs:
Vital Signs
Temp Pulse Resp BP Pulse Ox
97.7 F 72 18 121/50 99
02/17/25 05:04 02/17/25 05:04 02/17/25 05:04 02/17/25 05:04 02/17/25 05:04
I&O
02/16/25 02/17/25 02/18/25
06:59 06:59 06:59
Intake Total 500 / 500
Balance 500 / 500
Physical Exam
-
General: Comfortable
HEENT: Normocephalic, Atraumatic, Moist Mucous Membranes, No Ptosis, PERRLA and Nose Appears Normal
Respiratory: Clear to Auscultation and Non Labored Respirations
Cardiac: Regular Rhythm and S1/S2
Breast: Deferred by me
GI: Soft, Nontender, Nondistended and Normal Bowel Sounds
Genito-urinary: No Costovertebral Tender
Musculoskeletal: No Clubbing, No Cyanosis and No Edema
Skin: Warm
Neuro: Awake, Alert, Oriented, AO x 3 and No Motor Deficits
Psych: Calm
Data Reviewed
-
Diagnostic Radiology: Image personally visualized and interpreted and Report Reviewed by me
CT Scan: Image personally visualized and interpreted and Report Reviewed by me
Ultrasound: Image personally visualized and interpreted and Report Reviewed by me
MRI: Image personally visualized and interpreted and Report Reviewed by me
Medical Tests (Nuc Med, Echo etc): Image personally visualized and interpreted and Report Reviewed by me
Labs: Labs Reviewed by me
Old Records: Reviewed
[2025-02-17 09:05] LABS: Glycohemoglobin (HgbA1c) 5.8 % (4.0-5.6)
[2025-02-17 09:43] LABS: Glucose - Point of Care 77 mg/dl (70-99)
[2025-02-17] MEDS: D5/0.45%NACL 1000 IV (09:53)
[2025-02-17] MEDS: DESENEX/MITRAZOL/ZEASORB 1 APPLIC TOPICAL (09:55)
[2025-02-17 13:04] LABS: Glucose - Point of Care 74 mg/dl (70-99)
--- NOTE | 2025-02-17 13:55 | CON.GI ---
Addendum entered and electronically signed by Osbaldo Ryan MD 02/17/25 15:35:
I saw and examined the patient.
The BACK SEAM STITCHER or PA's note was reviewed and I agree with the note.
Comment: 84yo female presents with dizziness and Hgb 5.5. Stool dark heme positive in ER. History limited with pt's dementia. 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 She had distal SBO due to obstructing cecal lesion. Imaging
showed extensive liver, lung, peritoneal mets. Liver bx positive for metastatic adenocarcinoma. She underwent ileocectomy complicated by anastomotic leak requiring temporary IR drainage catheter. Oncology saw pt during that admission and
initially discussed restorative goals, but after post operative complications, performance status became an issue and palliative approach was discussed.
REC:
Transfuse PRBC for anemia
Start PPI BID
Her bleeding could be from her widely metastatic disease, but PUD is also possibility. Not sure if pt takes NSAIDs
Given her dementia and metastatic disease, I would lean toward palliative/hospice care, but await Oncology input
I would similarly hold off on EGD if hgb is stable after transfusion
I reviewed with son Cuate, who was in agreement
Original Note:
Consultation
-
Date/Time Consultation Requested: 02/17/25 1340
Date/Time Consultation Performed: 02/17/25 1400
Requesting Provider: Cielo Pacheco MD
Performing Provider: LEONOR Kaiser, Osbaldo Ryan MD
Reason for Consultation: anemia
Medical History
Chief Complaint / HPI
Chief Complaint: dizziness
History of Present Illness:
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 In review of record pt presents in 05/2024 with malignant bowel obstruction and completed lap assisted
ileocecectomy with ileocolonic anastomosis. Her procedure was complicated by anastomotic leak with prolonged admission. At that time Liver biopsy diagnostic for metastatic colorectal adenocarcinoma, colon biopsy invasive adenocarcinoma, 5.96cm,
moderately differentiated. She was seen by oncology during that admission. She now presents with dizziness with headache and on admission noted hbg 5.5 BUN 30, creat 1.3, alk phos 201. Per staff was noted with black stool in ER.
Pt with some limitation in history with confusions with underlying dementia. At this time patient admits to occasional abdominal pain but denies dysphagia, GERD, nausea, vomiting, hematemesis, diarrhea, constipation, blood or black stool. CT
on admission with Findings consistent with pulmonary, hepatic and peritoneal metastatic disease involving the anterior abdominal wall at multiple sites. All progressed. No evidence of intestinal obstruction. However, exam limited without oral
contrast Too small to characterize hypodense right renal lesions likely benign cysts. Stable. Small hiatal hernia. Enlarged. Moderate fecal material in the region of the rectum. Fecal impaction cannot be excluded. New.Probable myomatous uterus.
Enlarged. This could be confirmed by pelvic ultrasound.post surgical change. The previous drain has been removed.
Past Medical History
Past Medical History: HTN, NIDDM, Psychiatric (dementia ) and Other (obesity, balance issues )
Past Surgical History: Orthopedic (right KARLOS, ) and Other (prior abdominal surgery )
Social History
Tobacco: Former Smoker
Alcohol: None
Drug: None
Living: With Family (per chart )
Employment: Retired
Family History
Family History: Reviewed & Not Pertinent
Allergies / Home Medications
Allergy/AdvReac Type Severity Reaction Status Date / Time
No Known Allergies Allergy Verified 02/16/25 15:39
�Medication �Instructions �Recorded
atorvastatin 20 mg tablet 20 mg PO DAILY High cholesterol 10/24/22
olmesartan 20 mg tablet 20 mg PO DAILY Blood pressure 10/24/22
metformin 500 mg tablet,extended 500 mg PO DAILY Diabetes 05/04/24
release 24 hr
Review of Systems
-
Unable to obtain full review of systems at this time due to: Dementia
History Source: Patient and Family (attempted both contacts unable to reach )
Constitutional: Reports Weight Loss
EENT: Reports No Symptoms
Respiratory: Reports No Symptoms
Abdomen/GI: Reports Abdominal Pain
: Reports No Symptoms
Musculoskeletal: Reports No Symptoms
Neurological: Reports Dizzy and Weakness
Endocrine: Reports No Symptoms
Hematologic/Lymphatic: Reports Bleeding
Vital Signs
Temp Pulse Resp BP Pulse Ox
97.8 F 68 18 121/50 99
02/17/25 11:00 02/17/25 11:00 02/17/25 11:00 02/17/25 11:00 02/17/25 11:00
Physical Exam
Exam
General: No Apparent Distress, Comfortable and Other (elderly confused female )
HEENT: Normocephalic and Anicteric
Respiratory: Clear
Cardiac: Regular Rhythm
GI: Soft, Non Tender, Non Distended and Other (healed abdominal scar )
Musculoskeletal: No Clubbing and No Cyanosis
Skin: Warm and Dry
Neuro: Awake, Alert and Other (confused )
Psych: Calm
Results
WBC 7.3 10^3/uL (4.8-10.8) 02/17/25 06:38
Hgb 7.5 g/dL (12.0-16.0) L 02/17/25 06:38
Hct 23.5 % (37.0-47.0) L 02/17/25 06:38
MCV 86.1 fL (81.0-99.0) 02/17/25 06:38
Plt Count 268 10^3/uL (130-400) D 02/17/25 06:38
Absolute Neuts (auto) 7.6 10^3/uL (1.4-6.5) H 02/16/25 15:09
Sodium 141 mmol/L (135-145) 02/17/25 06:38
Potassium 4.1 mmol/L (3.5-5.1) 02/17/25 06:38
Chloride 117 mmol/L (98-107) H 02/17/25 06:38
Carbon Dioxide 17 mmol/L (22-30) L 02/17/25 06:38
BUN 23 mg/dl (7-17) H 02/17/25 06:38
Creatinine 1.0 mg/dL (0.6-1.0) 02/17/25 06:38
Calcium 7.5 mg/dl (8.4-10.2) L 02/17/25 06:38
Total Bilirubin 1.0 mg/dl (0.2-1.3) 02/17/25 06:38
AST 22 U/L (14-36) 02/17/25 06:38
ALT 15 U/L (0-35) 02/17/25 06:38
Alkaline Phosphatase 164 U/L (38-126) H 02/17/25 06:38
Diagnostic Image Results:
02/16/25 CT A/p
IMPRESSION: No acute pathology of the abdomen or pelvis identified.
Findings consistent with pulmonary, hepatic and peritoneal metastatic disease involving the anterior abdominal wall at multiple sites. All progressed. No evidence of intestinal obstruction. However, exam limited without oral contrast
Too small to characterize hypodense right renal lesions likely benign cysts. Stable.
Small hiatal hernia. Enlarged.
Moderate fecal material in the region of the rectum. Fecal impaction cannot be excluded. New.
Probable myomatous uterus. Enlarged. This could be confirmed by pelvic ultrasound.
Postsurgical change. The previous drain has been removed.
Prior GI Procedures:
EGD: unknown
Colonoscopy: unknown
Assessment / Plan
-
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 In review of record pt presents in 05/2024 with malignant bowel obstruction and completed lap assisted
ileocecectomy with ileocolonic anastomosis. Her procedure was complicated by anastomotic leak with prolonged admission. At that time Liver biopsy diagnostic for metastatic colorectal adenocarcinoma, colon biopsy invasive adenocarcinoma, 5.96cm,
moderately differentiated. She was seen by oncology during that admission. She now presents with dizziness with headache and on admission noted hbg 5.5 BUN30, creat 1.3, alk phos 201. Per staff was noted with black stool in ER. CT on admission
with progression of metastatic disease with pum, hepatic, peritoneal mets. small HH, enlarged, moderate stool in rectum fecal impaction not excluded but reported black stool after CT. .Probable myomatous uterus. Enlarged.
-symptomatic anemia
-black stool after admission
-stage IV colon CA with mets with hx prior malignant bowel obstruction with lap assisted ileocecectomy with ileocolonic anastomosis complicated with anastomotic leak
-hiatal hernia
-hypoalbuminemia
other med problems:
-dementia
-NIDDM
-obesity
-psoriatic arthritis
-HTN
PLAN:
etiology of anemia and black stool related to upper GI source with some mild BUN elevation vs SB vs other-- PUD, ectasia, yazmin lesion and concern for metastatic disease
options of conservative measures with transfuse/PPI and monitor vs aggressive measure with EGD vs consider hospice with progression of metastatic disease
await oncology input
s/p transfusion with hbg up to 7.5
monitor stool output
transition PPI to BID
currently NPO will increased to full liquid diet today then will allow clears in AM til review with family for plan
trend hbg
I was unable to reach Aureliano and left message for son Cuate to review history and plan
-
-
-
Thank you for consultation and allowing me to participate in the patient's care. Please call the inspector material disposition GI physician during the after hours with any questions or concerns.
[2025-02-17 17:18] LABS: Glucose - Point of Care 82 mg/dl (70-99)
[2025-02-17] MEDS: NOVOLOG FLEXPEN-LOW RESISTANCE SC (17:19)
--- NOTE | 2025-02-17 17:39 | CM ---
Received consult for hospice. Will meet with patient/family in the am to obtain information for assessment and determine which agency she would like to use, is patient and family are agreeable to hospice.
[2025-02-17] MEDS: DESENEX/MITRAZOL/ZEASORB TOPICAL (21:01)
[2025-02-17 21:07] LABS: Glucose - Point of Care 133 mg/dl (70-99)
[2025-02-18 07:30] VITALS: BP 130/51
[2025-02-18 08:11] LABS: Blood Urea Nitrogen 18 mg/dl (7-17); Calcium 8.4 mg/dl (8.4-10.2); Carbon Dioxide 16 mmol/L (22-30); Chloride 113 mmol/L (98-107); Estimated Creatinine Clearance 30 ml/min; Glucose 77 mg/dl (70-99); Potassium 4.3 mmol/L (3.5-5.1); Sodium 139 mmol/L (135-145); eGFR 49.24
[2025-02-18 08:12] LABS: Glucose - Point of Care 95 mg/dl (70-99)
[2025-02-18] MEDS: NOVOLOG FLEXPEN-LOW RESISTANCE SC ×3 (08:37→18:30)
[2025-02-18 08:54] LABS: Hematocrit 27.2 % (37.0-47.0); Hemoglobin 8.6 g/dL (12.0-16.0); Mean Corp Hgb Conc. 31.6 g/dL (33.0-37.0); Mean Corpuscular Hgb 27.3 pg (27.0-31.0); Mean Corpuscular Volume 86.3 fL (81.0-99.0); Mean Platelet Volume 9.5 fL (7.4-10.4); Platelet Count 276 10^3/uL (130-400); Red Blood Cell Count 3.15 10^6/uL (4.20-5.40); Red Cell Dist. Width 16.4 % (11.5-14.5); White Blood Cell Count 8.7 10^3/uL (4.8-10.8)
--- NOTE | 2025-02-18 09:45 | CON.ONC ---
Impression
Impression
84 YO F with metastatic CRC currently being managed for anemia of chronic disease.
Plan
Plan
- continue to monitor Hb and transfuse as needed
- GOC conversation with family and possible palliative/hospice consult
- continue all other medical care per primary care teams
Patient History
History of Present Illness
84 YO F with PMH of dementia, arthritis, dyslipidemia, HTN, metastatic CRC to the liver, lung and peritoneum who presents to with dizziness and Hb of 5.5. She underwent ileocecectomy with complications and following decline in performance status.
Palliative/hospice care was discussed at time of DC at last admission, however family decided to wait to pursue any comfort measures. During this stay, patient has been transfused 2 units of pRBC and Hb is 8.6 this AM.
In conversation, patient is pleasantly confused and states she has no acute concerns. She believes she lives at home with her parents and that they will take care of her at time of DC.
Past-Medical/Surgical History
ileocecectomy
Patient Medication
�Medication �Instructions �Recorded �Confirmed �Last Taken �Type
atorvastatin 20 mg tablet 20 mg PO DAILY High cholesterol 10/24/22 02/16/25 Unknown History
olmesartan 20 mg tablet 20 mg PO DAILY Blood pressure 10/24/22 02/16/25 Unknown History
metformin 500 mg tablet,extended 500 mg PO DAILY Diabetes 05/04/24 02/16/25 Unknown History
release 24 hr
Active Medications
Generic Name Dose Route Start Last Admin
Trade Name Freq PRN Reason Stop Dose Admin
Dextrose 12.5 grams 02/16/25 21:57
Dextrose 50% (0.5 Grams/Ml) 50 Ml Syringe IV 03/16/25 21:56
[id number] PRN
hypoglycemia
Protocol
Glucagon 1 mg 02/16/25 21:57
Glucagon 1 Mg Vial IM 03/16/25 21:56
PRN PRN
hypoglycemia
Protocol
Insulin Aspart 0 units 02/17/25 18:00 02/18/25 08:37
Insulin Aspart Low Resistance 300 Units/3 Ml Pen.Injctr SC 03/17/25 17:59 Not Given
AC BLANCA
Protocol
Miconazole Nitrate 0 applic 02/17/25 08:00 02/17/25 21:01
Miconazole Powder Bottle TOPICAL 03/17/25 07:59 Not Given
BID BLANCA
Pantoprazole Sodium 40 mg 02/17/25 20:00 02/18/25 08:38
Pantoprazole Sodium 40 Mg/10 Ml Vial IV 03/17/25 19:59 Not Given
BID BLANCA
Sodium Chloride 0 flush 02/16/25 22:00
Sodium Chloride 0.9% (Flush) Syringe IV 03/16/25 21:59
PER PROTOCOL BLANCA
Sodium Chloride 10 ml 02/17/25 20:00 02/18/25 08:38
Sodium Chloride 0.9% (Preservative Free) 10 Ml Vial IV 03/17/25 19:59 Not Given
BID BLANCA
Review of Systems
-
Unable to obtain full review of systems at this time due to: Dementia
History Source: Patient
Physical Exam
-
General: No Apparent Distress, Comfortable, Conversant and Other (confused)
GI: Soft
Musculoskeletal: No Clubbing, No Cyanosis and No Edema
Skin: Warm and Dry
Psych: Calm and Apparent Dementia
Labs
Lab Results
WBC 8.7 10^3/uL (4.8-10.8) 02/18/25 08:44
RBC 3.15 10^6/uL (4.20-5.40) L 02/18/25 08:44
Hgb 8.6 g/dL (12.0-16.0) L 02/18/25 08:44
Hct 27.2 % (37.0-47.0) L 02/18/25 08:44
MCV 86.3 fL (81.0-99.0) 02/18/25 08:44
MCH 27.3 pg (27.0-31.0) 02/18/25 08:44
MCHC 31.6 g/dL (33.0-37.0) L 02/18/25 08:44
RDW 16.4 % (11.5-14.5) H 02/18/25 08:44
Plt Count 276 10^3/uL (130-400) 02/18/25 08:44
MPV 9.5 fL (7.4-10.4) 02/18/25 08:44
Abs Immat Gran (auto) 0.0 10^3/uL (0-0.05) 02/16/25 15:09
Absolute Neuts (auto) 7.6 10^3/uL (1.4-6.5) H 02/16/25 15:09
Absolute Lymphs (auto) 1.2 10^3/uL (1.2-3.4) 02/16/25 15:09
Absolute Monos (auto) 0.6 10^3/uL (0.1-0.6) 02/16/25 15:09
Absolute Eos (auto) 0.1 10^3/uL (0-0.7) 02/16/25 15:09
Absolute Basos (auto) 0.0 10^3/uL (0-0.2) 02/16/25 15:09
Immature Gran % 0.3 % (0-0.5) 02/16/25 15:09
Neutrophils % 79.2 % (42.2-75.2) H 02/16/25 15:09
Lymphocytes % 12.7 % (20.5-51.1) L 02/16/25 15:09
Monocytes % 6.5 % (1.7-9.3) 02/16/25 15:09
Eosinophils % 1.0 % (0-6) 02/16/25 15:09
Basophils % 0.3 % (0-2) 02/16/25 15:09
Creatinine 1.1 mg/dL (0.6-1.0) H 02/18/25 06:57
Vital Signs
Vital Signs
Temp Pulse Resp BP Pulse Ox
97.3 F 67 18 130/51 100
02/18/25 07:30 02/18/25 07:30 02/18/25 07:30 02/18/25 07:30 02/18/25 07:30
[2025-02-18] MEDS: DESENEX/MITRAZOL/ZEASORB TOPICAL (10:35)
[2025-02-18 11:47] LABS: Glucose - Point of Care 119 mg/dl (70-99)
--- NOTE | 2025-02-18 12:03 | W.PN.HOSP.TC ---
Today's Communication/Plan
-
Pending hospice consult
Assessment / Plan
Assessment / Plan
Impression:
Patient is a 84 years old with history of metastatic stage IV colon cancer, hypertension, diabetes, who came to the ER with dizziness, headache and confusion found to have hemoglobin level of 5.5, status post blood transfusion.
Family interested in hospice, GI/ oncology consulted.
CT abdomen pelvis shows:
No acute pathology of the abdomen or pelvis identified.
Findings consistent with pulmonary, hepatic and peritoneal metastatic disease involving the anterior abdominal wall at multiple sites. All progressed. No evidence of intestinal obstruction. However, exam limited without oral contrast
Too small to characterize hypodense right renal lesions likely benign cysts. Stable
Discussed with family, patient also seen by GI and oncology.
Hospice care consulted
Assessment/plan:
Severe anemia: multifactorial origins cannot rule out GI loss / metastatic colon CA.
known severe Iron Deficiency
Anemia of Chronic disease
CT abdomen pelvis shows:
No acute pathology of the abdomen or pelvis identified.
Findings consistent with pulmonary, hepatic and peritoneal metastatic disease involving the anterior abdominal wall at multiple sites. All progressed. No evidence of intestinal obstruction. However, exam limited without oral contrast
Too small to characterize hypodense right renal lesions likely benign cysts. Stable
Status post blood transfusion.
GI/oncology consult.
02/17
Status post 2 units of blood transfusion.
Hemoglobin currently 7.5.
Continue to monitor
02/18
Hemoglobin 8.6
Goal of care discussion
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
- seems hospice care candidate
- under palliative care
- has 2 sons - they are considering for hospice care evaluation
- Oncology consult for hospice care evaluation
02/17
Discussed with son at bedside.
Awaiting GI/ oncology input.
Most likely patient will be discharged home with home hospice.
02/18
Hospice care consulted
Metabolic acidosis.
Continue IV fluid
Benign Hypertension
- Hold Olmesartan
- supportive care
DMT2
- home metformin on hold.
- add low SSI
Globin A1c 5.8
Chr ambulatory disorder
Use walker at home
CODE STATUS: DNR
DVT prophylaxis: SCDs
Diet: Soft diet
Family communication: Discussed with son at the
Disposition: Hospice consult.
Total time spent on today's encounter was 65 minutes which included time spent in counseling the patient/family regarding diagnosis and treatment plan as listed above, goals of care, and symptom management. Case was discussed with nursing staff,
specialists, and care coordinators/case management. All labs and imaging personally reviewed by me. Remainder the time spent in detailed review of previous records, lab data, imaging, and other medical provider documentation.
Anticipated Discharge: Today
Subjective/Interval History
-
Date of Service: February 18, 2025
Patient is pleasantly confused, denies any chest pain.
Objective Data
-
Labs:
Laboratory Results
02/18/25 02/18/25
06:57 08:44
WBC 8.7
Hgb 8.6 L
Hct 27.2 L
Plt Count 276
Sodium 139
Potassium 4.3
Chloride 113 H
Carbon Dioxide 16 L
BUN 18 H
Creatinine 1.1 H
Glucose 77
Calcium 8.4
Vital Signs:
Vital Signs
Temp Pulse Resp BP Pulse Ox
97.3 F 67 18 130/51 100
02/18/25 07:30 02/18/25 07:30 02/18/25 07:30 02/18/25 07:30 02/18/25 07:30
I&O
02/17/25 02/18/25 02/19/25
06:59 06:59 06:59
Intake Total 500 / 500 960 / 960
Balance 500 / 500 960 / 960
Physical Exam
-
General: Comfortable
HEENT: Normocephalic, Atraumatic, Moist Mucous Membranes, No Ptosis, PERRLA and Nose Appears Normal
Respiratory: Clear to Auscultation and Non Labored Respirations
Cardiac: Regular Rhythm and S1/S2
Breast: Deferred by me
GI: Soft, Nontender, Nondistended and Normal Bowel Sounds
Genito-urinary: No Costovertebral Tender
Musculoskeletal: No Clubbing, No Cyanosis and No Edema
Skin: Warm
Neuro: Awake, Alert, Oriented, AO x 3 and No Motor Deficits
Psych: Calm
Data Reviewed
-
Diagnostic Radiology: Image personally visualized and interpreted and Report Reviewed by me
CT Scan: Image personally visualized and interpreted and Report Reviewed by me
Ultrasound: Image personally visualized and interpreted and Report Reviewed by me
MRI: Image personally visualized and interpreted and Report Reviewed by me
Medical Tests (Nuc Med, Echo etc): Image personally visualized and interpreted and Report Reviewed by me
Labs: Labs Reviewed by me
Old Records: Reviewed
--- NOTE | 2025-02-18 13:44 | CM ---
Addendum entered by THIAGO Wilkinson 02/18/25 14:38:
Referral made to [facility] [phone]
Original Note:
Spoke with patient's sons Aureliano and Cuate. They stated that patient lives with them in a single, one story home with 2 steps to enter. She was primarily independent with some of her ADLs and personal care. She was able to dress herself and bathe.
Sons put meals together, and do the laundry, clean and health care attorney. She has been to [facility] in the past. She has had VN services as well. Patient's sons transport her to her appointments and help with the shopping.
Patient has a prescription plan and uses, the [facility] in [place] for all of her medications.
Patient's PCP is, Maykel Odell.
Both of patient's son's agreeable to hospice. They have no preference and therefore will send referral to determine what agency can provide service in the area.
Attending updated.
Plan: Case management will continue to follow and assist with discharge planning. Hospice.
[2025-02-18 15:20] VITALS: BP 145/53
[2025-02-18 16:08] LABS: Glucose - Point of Care 119 mg/dl (70-99)
--- NOTE | 2025-02-18 17:39 | PTCARENOTE ---
Assumed care of pt from previous nurse. Pt oob to recliner chair in the hallway as pt is calmer with people around her. Pt doing puzzles. Denies pain. Pt does not ring rohit. rounding in place when in room and bed alarm in place when in room. sitting
at nurses station at this time. will cont to monitor.
[2025-02-18 21:57] LABS: Glucose - Point of Care 109 mg/dl (70-99)
[2025-02-18] MEDS: DESENEX/MITRAZOL/ZEASORB 1 APPLIC TOPICAL (22:51)
[2025-02-18 23:41] VITALS: BP 147/49
[2025-02-19 07:30] VITALS: BP 138/60
[2025-02-19 07:33] LABS: Glucose - Point of Care 109 mg/dl (70-99)
[2025-02-19] MEDS: NOVOLOG FLEXPEN-LOW RESISTANCE SC (09:29)
[2025-02-19] MEDS: DESENEX/MITRAZOL/ZEASORB 1 APPLIC TOPICAL (09:30)
--- NOTE | 2025-02-19 09:57 | W.PN.ONC2 ---
Documented by User: Gary Nunes DO, Resident 02/19/25 09:58
Today's Communication / Plan
-
Patient to be discharged today on home hospice
Impression
Impression
84 YO F with metastatic CRC currently being managed for anemia of chronic disease.
Plan
Plan
� Patient to be discharged today on home hospice
- continue all other medical care per primary care teams
Subjective/Objective
Chief Complaint
Symptomatic anemia metastatic colorectal cancer
Subjective
Patient is an 84-year-old female currently at [facility] being managed for anemia and colorectal cancer. She remains confused and will be discharged today on home hospice
Vital Signs:
Vital Signs
Temp Pulse Resp BP Pulse Ox
98.1 F 77 18 138/60 98
02/19/25 07:30 02/19/25 07:30 02/19/25 07:30 02/19/25 07:30 02/19/25 07:30
Lab Results:
Laboratory Data
WBC 8.7 10^3/uL (4.8-10.8) 02/18/25 08:44
Hgb 8.6 g/dL (12.0-16.0) L 02/18/25 08:44
Plt Count 276 10^3/uL (130-400) 02/18/25 08:44
eGFR 49.24 02/18/25 06:57
Review of Systems
Review of Systems
Unable to obtain due to dementia

Documented by User: Erich Sosa MD 02/19/25 10:53
Plan
Plan
� Patient to be discharged today on home hospice
- continue all other medical care per primary care teams
Oncology Addendum:
Patient seen and case reviewed w/ resident
Agree w/ plan of care as outlined
for transition to hospice care
--- NOTE | 2025-02-19 11:02 | CM ---
Addendum entered by THIAGO Wilkinson 02/19/25 16:50:
IMM reviewed with son. Both patient's son's are agreeable to d/c. Will put IMM in bin as chart has been broken down since discharge.
Original Note:
Spoke with Dahiana in admissions at [facility] [phone] who confirmed that her agency can take patient today. She confirmed that she has already spoken with both of patient's sons and they are agreeable to start date of today. Attending
updated. He completed Out of Hospital DNR Form. Discharge order in.
Placed a call to patient's son Cuate who confirmed address listed under demographics. There are three steps to enter. Son will be home when patient gets home.
[facility] # Report [phone]

Will complete medical necessity and transfer sheet.
Plan: Case management will continue to follow and assist with discharge plan. Home with Hospice.
[2025-02-19 11:24] VITALS: BP 109/52
[2025-02-19 11:46] LABS: Glucose - Point of Care 188 mg/dl (70-99)
[2025-02-19] MEDS: NOVOLOG FLEXPEN-LOW RESISTANCE 1 UNITS SC (12:32)
--- NOTE | 2025-02-19 14:06 | W.PN.HOSP.TC ---
Today's Communication/Plan
-
patient will be discharged home with home hospice.
Assessment / Plan
Assessment / Plan
Impression:
Patient is a 84 years old with history of metastatic stage IV colon cancer, hypertension, diabetes, who came to the ER with dizziness, headache and confusion found to have hemoglobin level of 5.5, status post blood transfusion.
Family interested in hospice, GI/ oncology consulted.
CT abdomen pelvis shows:
No acute pathology of the abdomen or pelvis identified.
Findings consistent with pulmonary, hepatic and peritoneal metastatic disease involving the anterior abdominal wall at multiple sites. All progressed. No evidence of intestinal obstruction. However, exam limited without oral contrast
Too small to characterize hypodense right renal lesions likely benign cysts. Stable
Discussed with family, patient also seen by GI and oncology.
Hospice care consulted, patient will be discharged home with home hospice.
Assessment/plan:
Severe anemia: multifactorial origins cannot rule out GI loss / metastatic colon CA.
known severe Iron Deficiency
Anemia of Chronic disease
CT abdomen pelvis shows:
No acute pathology of the abdomen or pelvis identified.
Findings consistent with pulmonary, hepatic and peritoneal metastatic disease involving the anterior abdominal wall at multiple sites. All progressed. No evidence of intestinal obstruction. However, exam limited without oral contrast
Too small to characterize hypodense right renal lesions likely benign cysts. Stable
Status post blood transfusion.
GI/oncology consult.
02/17
Status post 2 units of blood transfusion.
Hemoglobin currently 7.5.
Continue to monitor
02/18
Hemoglobin 8.6
02/19
patient will be discharged home with home hospice.
Goal of care discussion
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
- seems hospice care candidate
- under palliative care
- has 2 sons - they are considering for hospice care evaluation
- Oncology consult for hospice care evaluation
02/17
Discussed with son at bedside.
Awaiting GI/ oncology input.
Most likely patient will be discharged home with home hospice.
02/18
Hospice care consulted
02/19
patient will be discharged home with home hospice.
Metabolic acidosis.
Continue IV fluid
Benign Hypertension
- Hold Olmesartan
- supportive care
DMT2
- home metformin on hold.
- add low SSI
Globin A1c 5.8
Chr ambulatory disorder
Use walker at home
CODE STATUS: DNR
DVT prophylaxis: SCDs
Diet: Soft diet
Family communication: Discussed with son at the
Disposition: patient will be discharged home with home hospice.
Total time spent on today's encounter was 65 minutes which included time spent in counseling the patient/family regarding diagnosis and treatment plan as listed above, goals of care, and symptom management. Case was discussed with nursing staff,
specialists, and care coordinators/case management. All labs and imaging personally reviewed by me. Remainder the time spent in detailed review of previous records, lab data, imaging, and other medical provider documentation.
Anticipated Discharge: Today
Subjective/Interval History
-
Date of Service: February 19, 2025
Patient is pleasantly confused, discharged home with home hospice today.
Objective Data
-
Vital Signs:
Vital Signs
Temp Pulse Resp BP Pulse Ox
97.6 F 89 18 109/52 95
02/19/25 11:24 02/19/25 11:24 02/19/25 11:24 02/19/25 11:24 02/19/25 11:24
I&O
02/18/25 02/19/25 02/20/25
06:59 06:59 06:59
Intake Total 960 / 960 480 / 480
Balance 960 / 960 480 / 480
Physical Exam
-
General: Comfortable
HEENT: Normocephalic, Atraumatic, Moist Mucous Membranes, No Ptosis, PERRLA and Nose Appears Normal
Respiratory: Clear to Auscultation and Non Labored Respirations
Cardiac: Regular Rhythm and S1/S2
Breast: Deferred by me
GI: Soft, Nontender, Nondistended and Normal Bowel Sounds
Genito-urinary: No Costovertebral Tender
Musculoskeletal: No Clubbing, No Cyanosis and No Edema
Skin: Warm
Neuro: Awake, Alert, Oriented, AO x 3 and No Motor Deficits
Psych: Calm
Data Reviewed
-
Diagnostic Radiology: Image personally visualized and interpreted and Report Reviewed by me
CT Scan: Image personally visualized and interpreted and Report Reviewed by me
Ultrasound: Image personally visualized and interpreted and Report Reviewed by me
MRI: Image personally visualized and interpreted and Report Reviewed by me
Medical Tests (Nuc Med, Echo etc): Image personally visualized and interpreted and Report Reviewed by me
Labs: Labs Reviewed by me
Old Records: Reviewed
--- NOTE | 2025-02-19 14:08 | W.DCSUMMARY ---
Discharge Summary
Discharge Data
Date of Admission: 02/16/25
Date of Discharge: 02/19/25
-
Pending Results: No
Hospital Course
Hospital course
Patient is a 84 years old with history of metastatic stage IV colon cancer, hypertension, diabetes, who came to the ER with dizziness, headache and confusion found to have hemoglobin level of 5.5, status post blood transfusion.
Family interested in hospice, GI/ oncology consulted.
CT abdomen pelvis shows:
No acute pathology of the abdomen or pelvis identified.
Findings consistent with pulmonary, hepatic and peritoneal metastatic disease involving the anterior abdominal wall at multiple sites. All progressed. No evidence of intestinal obstruction. However, exam limited without oral contrast
Too small to characterize hypodense right renal lesions likely benign cysts. Stable
Discussed with family, patient also seen by GI and oncology.
Hospice care consulted, patient will be discharged home with home hospice.
During hospitalization patient was treated from the following
Severe anemia: multifactorial origins cannot rule out GI loss / metastatic colon CA.
known severe Iron Deficiency
Anemia of Chronic disease
CT abdomen pelvis shows:
No acute pathology of the abdomen or pelvis identified.
Findings consistent with pulmonary, hepatic and peritoneal metastatic disease involving the anterior abdominal wall at multiple sites. All progressed. No evidence of intestinal obstruction. However, exam limited without oral contrast
Too small to characterize hypodense right renal lesions likely benign cysts. Stable
Status post blood transfusion.
GI/oncology consult.
02/17
Status post 2 units of blood transfusion.
Hemoglobin currently 7.5.
Continue to monitor
02/18
Hemoglobin 8.6
02/19
patient will be discharged home with home hospice.
Goal of care discussion
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
- seems hospice care candidate
- under palliative care
- has 2 sons - they are considering for hospice care evaluation
- Oncology consult for hospice care evaluation
02/17
Discussed with son at bedside.
Awaiting GI/ oncology input.
Most likely patient will be discharged home with home hospice.
02/18
Hospice care consulted
02/19
patient will be discharged home with home hospice.
Metabolic acidosis.
Continue IV fluid
Benign Hypertension
- Hold Olmesartan
- supportive care
DMT2
- home metformin on hold.
- add low SSI
Globin A1c 5.8
Chr ambulatory disorder
Use walker at home
CODE STATUS: DNR
DVT prophylaxis: SCDs
Diet: Soft diet
Family communication: Discussed with son at the
Disposition: patient will be discharged home with home hospice.
Total time spent on today's encounter was 40 minutes which included time spent in counseling the patient/family regarding diagnosis and treatment plan as listed above, goals of care, and symptom management. Case was discussed with nursing staff,
specialists, and care coordinators/case management. All labs and imaging personally reviewed by me. Remainder the time spent in detailed review of previous records, lab data, imaging, and other medical provider documentation.
Anticipated Discharge: Today
Discharge Plan
-
Patient Disposition: Home with Hospice
Discharge Diagnosis/Procedures: Severe anemia
stage 4 metastatic colon Cancer.
Condition: Fair
Diet: As tolerated
Activity: With assistance and As tolerated
Referrals:
Maykel Odell MD [Family Provider] -
Prescriptions:
Continued
atorvastatin 20 mg Tablet
20 mg PO DAILY
olmesartan 20 MG tablet
20 mg PO DAILY
metformin 500 mg Tablet Extended Release 24 Hr
500 mg PO DAILY
Discharge Orders:
Discharge Patient (As Directed); Ordered 02/19/25
Ordered By: Cielo Pacheco
Discharge Date and Time
Print Language: SLOVAK
[2025-02-19 15:19] VITALS: BP 135/56
== END 2025-02-19 16:35 | disposition hospice, home (50) | DRG 375 ==
LOC: 4 EAST ACU 19:22
PROVIDERS: ADMITTING PHYSICIAN Internal Medicine; ATTENDING PHYSICIAN General Practice; CONSULT PHYSICIAN Specialist; EMERGENCY PHYSICIAN Emergency Medicine; FAMILY PHYSICIAN Family Medicine; OTHER PHYSICIAN Internal Medicine Hematology & Oncology
PROC: 30233N1 Transfusion of Nonautologous Red Blood Cells into Peripheral Vein, Percutaneous Approach (ICD-10-PCS; 2025-02-16)
DX: C19 Malignant neoplasm of rectosigmoid junction (principal); C78.00 Secondary malignant neoplasm of unspecified lung; C78.6 Secondary malignant neoplasm of retroperitoneum and peritoneum; E87.20 Acidosis, unspecified; I10 Essential (primary) hypertension; D63.0 Anemia in neoplastic disease; E61.1 Iron deficiency; E78.00 Pure hypercholesterolemia, unspecified; E88.09 Other disorders of plasma-protein metabolism, not elsewhere classified; F03.90 Unspecified dementia, unspecified severity, without behavioral disturbance, psychotic disturbance, mood disturbance, and anxiety; N19 Unspecified kidney failure; Z66 Do not resuscitate; Z79.84 Long term (current) use of oral hypoglycemic drugs; Z79.899 Other long term (current) drug therapy; Z87.891 Personal history of nicotine dependence; Z96.641 Presence of right artificial hip joint; E66.9 Obesity, unspecified; Z68.25 Body mass index [BMI] 25.0-25.9, adult
CPT/HCPCS: 36430; 70450; 74177; 80048; 80053; 81003; 81015; 82962; 83036; 85014; 85018; 85025; 85027; 86850; 86900; 86901; 86920; 93005; 96374; 99291; P9016; Q9967